=== PATIENT | female | born 1960 | race Caucasian/White ===

== ENCOUNTER → 2019-12-25 10:15 | Outpatient (CLI) | payer OTHER, SELFPAY ==
--- NOTE | ~2019-12-25 | MM_ITS ---
EXAMINATION: MM screening [facility] BI w kenneth HISTORY: Screening mammogram TECHNIQUE: Craniocaudal and mediolateral oblique 3-D tomosynthesis images were obtained and synthetic 2-D images were generated. CAD analysis was submitted and interpreted. COMPARISON: 09/08/2018, 05/10/2017, 02/23/2016 BREAST PARENCHYMAL COMPOSITION: The breasts are almost entirely fatty. FINDINGS: Scattered benign-appearing calcifications are present. There is no evidence of suspicious m ass, calcification, or architectural distortion to suggest malignancy in either breast. There has bee n no suspicious interval change. IMPRESSION: 1. No mammographic evidence of malignancy. 2. Recommend routine screening mammography in one year. BI-RADS Category 2: Benign finding(s). Reviewed, dictated and finalized at location A.
--- NOTE | ~2019-12-25 | DEXA_ITS ---
Bone Density Report Name: Clara Canales Age: 59 Sex: Female Ethnicity: White Date of : 1960 Indication: osteopenia; height loss; inflammatory bowel disease; hysterectomy; postmenopausal Referring Provider: Brayden Murdock Study: Bone densitometry was performed. Exam Date: December 25, 2019 Accession number: [id number] Bone Density: Region BMD T-score Z-score Classification AP Spine (L1-L4) 0.923 -1.1 0.4 Osteopenia Femoral Neck (Left) 0.729 -1.1 0.3 Osteopenia Total Hip (Left) 0.983 0.3 1.4 Normal Femoral Neck (Right) 0.738 -1.0 0.4 Normal Total Hip (Right) 1.019 0.6 1.7 Normal Total Hip Mean 1.001 0.5 1.6 Normal World Health Organization criteria for BMD impression classify patients as: Normal (T-score at or above -1.0), Osteopenia (T-score between -1.0 and -2.5), or Osteoporosis (T-score at or below -2.5). 10-year Fracture Risk(1): Major Osteoporotic Fracture 7.5% Hip Fracture 0.5% Reported Risk Factors: [place] (), Neck BMD=0.729, BMI=28.3 (1) FRAX(R) Version 3.08. Fracture probability calculated for an untreated patient. Fracture probability may be lower if the patient has received treatment. Previous Exams: Region Exam Age BMD T-score BMD Change BMD Change Date g/cm2 vs Baseline vs Previous AP Spine(L1-L4) 12/25/2019 59 0.923 -1.1 -0.073* 0.019 02/04/2014 53 0.904 -1.3 -0.092* -0.009 08/07/2010 50 0.913 -1.2 -0.083* -0.083* 04/10/2008 48 0.996 -0.5 Total Hip(Left) 12/25/2019 59 0.983 0.3 -0.041* 0.008 02/04/2014 53 0.975 0.3 -0.049* -0.001 08/07/2010 50 0.977 0.3 -0.048* -0.048* 04/10/2008 48 1.025 0.7 Total Hip(Right) 12/25/2019 59 1.019 0.6 -0.044* 0.035* 02/04/2014 53 0.985 0.4 -0.078* -0.004 08/07/2010 50 0.989 0.4 -0.074* -0.074* 04/10/2008 48 1.063 1.0 *Denotes significance at 95% confidence level, LSC for AP Spine = 0.022 g/cm2, LSC for Total Hip = 0.027 g/cm2 Clinical Information Provided by Patient: Has used the following medications: Vitamin D, Calcium Has the following medical conditions: Inflammatory bowel diseases, Hysterectomy Patient maximum height was 62 Menopause Age: 42 No regular weight bearing exercise Drinks caffeinated beverages Onset of menses at age 10 Number of children 1
== END ==
PROVIDERS: PCP Family Medicine; Visit Provider Physician Assistant
DX: Z12.31 Encounter for screening mammogram for malignant neoplasm of breast (principal); Z78.0 Asymptomatic menopausal state; M85.88 Other specified disorders of bone density and structure, other site; M85.852 Other specified disorders of bone density and structure, left thigh
CPT/HCPCS: 77063; 77067; 77080

== ENCOUNTER 2020-06-11 08:14 | Outpatient (CLI) | payer OTHER, SELFPAY | END 2020-06-11 08:15 | disposition home or self-care (01) | LOC: ANHCOVIDVC 08:14 | PROVIDERS: PCP Family Medicine | DX: Z23 Encounter for immunization (principal) | CPT/HCPCS: 0001A; 91300 ==

== ENCOUNTER → 2020-06-24 12:44 | Outpatient (CLI) | payer OTHER, SELFPAY ==
--- NOTE | ~2020-06-24 | CT_ITS ---
EXAMINATION: CT abdomen pelvis wo/w con DATE: 06/24/2020 13:39 INDICATION: Hematuria TECHNIQUE: Computed tomography (CT) of the abdomen and pelvis was performed without and with 130 cc O mnipaque 350 intravenous contrast. The dose-length product was 1444.94 mGy-cm. Automated exposure con trol and iterative reconstruction technique were employed. COMPARISON: CT dated 03/09/2018. FINDINGS: Lung bases are unremarkable. No significant pleural or pericardial effusion. Heart size nor mal. Status post cholecystectomy. No renal stone or hydronephrosis. 10 mm hyperdense mass in the vagi nal cuff on the right unchanged, likely proteinaceous cyst. No significant vascular abnormality. No lymphadenopathy. Ureters are normal in course and caliber. Fatty infiltration of the liver. The spleen, pancreas, adrenal glands and kidneys are unremarkable. N o findings to account for hematuria. Bladder is unremarkable. No abnormal pelvic masses or fluid rosa ections. Nonobstructive bowel gas pattern. Stable bone islands in the left femoral head. IMPRESSION: 1. No acute abdominal abnormality. No findings to account for patient's hematuria. Reviewed, dictated and finalized at location B. IMPRESSION: 1. No acute abdominal abnormality. No findings to account for patient's hematur ia.
[2020-06-24 13:11] LABS: Estimated Glomerular Filt Rate > 60
== END ==
PROVIDERS: PCP Family Medicine; Visit Provider Physician Assistant
DX: R31.9 Hematuria, unspecified (principal)
CPT/HCPCS: 74178; Q9967

== ENCOUNTER 2020-07-02 08:15 | Outpatient (CLI) | payer OTHER, SELFPAY | END 2020-07-02 08:16 | disposition home or self-care (01) | LOC: ANHCOVIDVC 08:15 | PROVIDERS: PCP Family Medicine | DX: Z23 Encounter for immunization (principal) | CPT/HCPCS: 0002A; 91300 ==

== ENCOUNTER → 2021-05-25 11:19 | Outpatient (CLI) | payer OTHER, SELFPAY ==
--- NOTE | ~2021-05-25 | MM_ITS ---
EXAMINATION: MM screening [facility] BI w kenneth HISTORY: Screening mammogram TECHNIQUE: Craniocaudal and mediolateral oblique 3-D tomosynthesis images were obtained and synthetic 2-D images were generated. CAD analysis was submitted and interpreted. COMPARISON: 12/25/2019, 09/08/2018, 05/10/2017 BREAST PARENCHYMAL COMPOSITION: The breasts are almost entirely fatty. FINDINGS: There is no evidence of suspicious mass, calcification, or architectural distortion to sugg est malignancy in either breast. There has been no suspicious interval change. IMPRESSION: 1. No mammographic evidence of malignancy. 2. Recommend routine screening mammography in one year. BI-RADS Category 1: Negative Reviewed, dictated and finalized at location A. OSIVES HANDLER
== END ==
PROVIDERS: PCP Family Medicine; Visit Provider Family Medicine
DX: Z12.31 Encounter for screening mammogram for malignant neoplasm of breast (principal)
CPT/HCPCS: 77063; 77067

== ENCOUNTER 2021-09-04 08:48 | Outpatient (CLI) | payer OTHER, SELFPAY ==
--- NOTE | ~2021-09-04 | US_ITS ---
US abdomen limited INDICATION: Right upper quadrant pain PROCEDURE: Realtime right upper abdominal ultrasound. COMPARISON: No prior studies for comparison. FINDINGS: The pancreas is normal without focal mass or pancreatic ductal dilation. Liver echotexture is normal without focal mass or intrahepatic biliary dilatation. There is normal directional flow i n the portal vein. Gallbladder is surgically absent. Common bile duct measures 6.7 mm. No sonographic Beltran's sign. IMPRESSION: 1: Unremarkable limited abdominal ultrasound postcholecystectomy. Reviewed, dictated and finalized at location B.
== END 2021-09-04 08:49 | disposition home or self-care (01) ==
LOC: ANHIMG 08:51
PROVIDERS: PCP Family Medicine; Visit Provider Nurse Practitioner Family
DX: R10.11 Right upper quadrant pain (principal); Z90.49 Acquired absence of other specified parts of digestive tract
CPT/HCPCS: 76705

== ENCOUNTER 2021-12-26 09:30 | Emergency (ER) | payer OTHER, SELFPAY ==
--- NOTE | 2021-12-26 09:38 | ED.URI ---
HPI - URI/Sore Throat General Chief Complaint: Upper Respiratory Infection Stated Complaint: drainage, cough, sore throat Time Seen by Provider: 12/26/21 09:42 Source: patient and RN notes reviewed Mode of arrival: ambulatory Limitations: no limitations History of Present Illness HPI Narrative: 61-year-old female presents with concern for 6-day history of sinus drainage, pressure. She reports sinus pressure is worse on the left. She reports occasional cough. She reports copious postnasal drainage. She reports occasional cough. She denies fever, bodies, chills, sweats. Denies known sick contacts. Reports she takes allergy medicine daily. MD elicited complaint: rhinorrhea and nasal congestion Related Data Home Medications Medication Instructions Recorded Confirmed aspirin 81 mg tablet,delayed 81 mg PO DAILY 05/01/19 11/19/21 release calcium carbonate 600 mg-vitamin 1 cap PO DAILY 05/01/19 11/19/21 D3 12.5 mcg (500 unit) capsule (Calcium 600 with Vitamin D3) loratadine 10 mg capsule 10 mg PO DAILY 05/01/19 11/19/21 vitamins A,C,G-kewx-suagzh 14,320 1 cap PO DAILY 05/01/19 11/19/21 unit-226 mg-200 unit capsule (PreserVision AREDS) cholecalciferol (vitamin D3) 50 50 mcg PO DAILY 07/02/20 11/19/21 mcg (2,000 unit) capsule cyclosporine 0.05 % eye drops in a 1 drp EACH EYE Q12H 07/02/20 11/19/21 dropperette (Restasis) gabapentin 100 mg capsule 100 mg PO TID 11/19/21 11/19/21 Allergies Allergy/AdvReac Type Severity Reaction Status Date / Time codeine Allergy Unknown Nausea Verified 11/19/21 08:36 morphine Allergy Unknown Nausea Verified 11/19/21 08:36 Review of Systems Review of Systems: CONSTITUTIONAL: Denies malaise, chills, sweats, or fever. EYES: Denies visual changes, redness, or discharge. ENT: Reports rhinorrhea, congestion. Denies sinus pain, otalgia and sore throat. CARDIOVASCULAR: Denies chest pain, palpitations, or edema. RESPIRATORY: Reports occasional cough. Denies dyspnea. GASTROINTESTINAL: Denies abdominal pain, nausea, vomiting, diarrhea SKIN: Denies rash or itching. MUSCULOSKELETAL: Denies myalgia. NEUROLOGIC: Denies headache. All systems reviewed & are unremarkable except as noted in HPI and below PMFSH Past Medical History Medical History (Updated 12/26/21 @ 09:53 by Magy Delgado NP) Carpal tunnel syndrome of left wrist Carpal tunnel syndrome, right upper limb Cholecystectomy planned (~2004) Right upper quadrant pain Surgical History Surgical History H/O cervical discectomy (~2000) H/O endoscopy (~2004) H/O hysterectomy with oophorectomy H/O tubal ligation (~1991) History of tonsillectomy (~1962) Family History Family History Father Hypertension Family history of kidney disease Family history of coronary artery disease Family history of congestive heart failure Mother Hypertension Family history of osteoarthritis Cerebrovascular accident Family history of atrial fibrillation Family history of congestive heart failure Social History Social History Smoking status: Never smoker Alcohol intake: current Comments At time of signature, agree with nursing past medical, surgical, social and family history. There is no relevant family history pertinent to the presenting complaint Exam Narrative: GENERAL: Well-appearing, well-nourished, and in no acute distress. HEAD: Normocephalic EYES: PERRLA, conjunctivae clear ENT: Nares clear, turbinates edematous and erythematous, clear discharge. Mucous membranes moist. TM pearly shore with sharp light reflex bilaterally; no tragal tenderness. Oropharynx not erythematous without lesions. Tonsils not enlarged and without exudate, no drooling, no hoarseness, no trismus, uvula midline. NECK: Supple. No lymphadenopathy CHEST: Clear to auscultation, breath sounds equal.
[2021-12-26 09:39] VITALS: BP 146/83; PULSE 116; RESP 16; TEMP 36.6; O2SAT 100
== END 2021-12-26 09:58 | disposition home or self-care (01) ==
PROVIDERS: Emergency Provider Nurse Practitioner; PCP Family Medicine
DX: J32.9 Chronic sinusitis, unspecified (principal)
CPT/HCPCS: 99213; G0463

== ENCOUNTER 2022-04-19 08:51 | Inpatient (IN) | payer OTHER, SELFPAY ==
[2022-04-19] VITALS (31 sets, daily range): BP systolic 123–153; BP diastolic 66–95; PULSE 86–107; RESP 12–20; TEMP 36.9; O2SAT 94–100
--- NOTE | ~2022-04-19 | XR_ITS ---
EXAMINATION: XR chest 1V portable DATE: 04/19/2022 09:28 INDICATION: Left upper quadrant abdominal pain. TECHNIQUE: A single frontal view of the chest was obtained. COMPARISON: CT abdomen and pelvis 06/24/2020 FINDINGS: Again seen is elevation of right hemidiaphragm. No pneumonia, pleural effusion, or pneumoth orax. The heart size is normal. There are changes of anterior and posterior fusion procedures in cerv ical spine. Surgical clips in the right upper quadrant are likely from cholecystectomy. IMPRESSION: 1. Chronic elevation of right hemidiaphragm. Reviewed, dictated and finalized at location A. KEEPER RECEPTIONIST
--- NOTE | ~2022-04-19 | XR_ITS ---
EXAMINATION: XR small bowel follow through DATE: 04/20/2022 15:01 INDICATION: Small bowel obstruction. TECHNIQUE: Oral contrast was administered, and a time course of radiographs of the abdomen was obtain ed. Fluoroscopy of the small bowel was not performed. Fluoroscopy exposure time was 0 minutes. The to kashif number of images was 3. COMPARISON: CT abdomen and pelvis 04/19/2022 FINDINGS: The nasogastric tube tip is in the stomach. There is a dilated loop of distal small bowel. Transit ti me from the stomach to proximal colon was approximately 30 minutes. Surgical clips in the right upper quadrant are likely from cholecystectomy. IMPRESSION: 1. Dilated loop of distal small bowel with prompt passage of contrast to the colon, consistent with l ow-grade partial small bowel obstruction. Reviewed, dictated and finalized at location A. FITTER IMPRESSION: 1. Dilated loop of distal small bowel with prompt passage of contrast to the co erika, consistent with low-grade partial small bowel obstruction.
--- NOTE | ~2022-04-19 | XR_ITS ---
Upright view of the abdomen Clinical history: NG tube placement Findings: Bowel gas pattern is nonspecific. NG tube in satisfactory position. No evidence for obstruc tion or free air. No abnormal mass lesion or calcification is seen. Osseous structures are intact. Impression: NG tube in satisfactory position. Reviewed, dictated and finalized at [facility]. IVING MANAGER Impression: NG tube in satisfactory position.
--- NOTE | ~2022-04-19 | CT_ITS ---
EXAMINATION: CT abdomen pelvis w con DATE: 04/19/2022 10:24 INDICATION: Generalized abdominal pain. Nausea and vomiting. TECHNIQUE: Computed tomography (CT) of the abdomen and pelvis was performed with 100 mL Omnipaque 350 intravenous contrast. Automated exposure control and iterative reconstruction technique were employe d. The dose-length product was 505.84 mGy-cm. COMPARISON: CT abdomen and pelvis 06/24/2020 FINDINGS: The visualized portions of the lung bases demonstrate mild atelectasis. No pleural effusion . The heart size is normal. There are coronary artery calcifications. No pericardial effusion. The li sheila is normal. The common duct measures 10 mm, which is normal status post cholecystectomy. The pancr eas, spleen, adrenal glands, and right kidney are normal. There is a 7 mm cyst in left kidney. The ap pendix is normal. There are multiple dilated loops of small bowel with transition point in the lower abdomen. There is wall thickening of small bowel just distal to the transition point. There is mesent nawaf edema of the dilated bowel loops. There is a small volume of ascites. There are no pathologicall y enlarged lymph nodes. There are benign bone islands in left femoral head. There is severe lumbar sp ondylosis. IMPRESSION: 1. Small bowel obstruction with transition point in the lower abdomen. 2. Small volume of ascites. Reviewed, dictated and finalized at location A. R TECH
--- NOTE | 2022-04-19 09:09 | ECG_ITS ---
Measurements Intervals [place] Rate: 90 P: 48 CO: 164 QRS: 35 QRSD: 92 T: 47 QT: 366 QTc: 448 Interpretive Statements SINUS RHYTHM DELAYED PRECORDIAL R/S TRANSITION BASELINE WANDER- I, III, AVL, AVF BORDERLINE ECG NO PREVIOUS ECG AVAILABLE FOR COMPARISON Electronically Signed On 04-19-2022 11:06:41 GIS DEVELOPER by Viet Perkins D.O.
[2022-04-19] MEDS: SODIUM CHLORIDE 0.9% IV 1,000 ML 999 ML IV CONT (09:18)
[2022-04-19] MEDS: fentaNYL CITRATE INJ (*CRX) 100 MCG/2 ML VIAL 50 MCG IV PUSH (09:19)
[2022-04-19] MEDS: ONDANSETRON INJ 4 MG/2 ML VIAL IV PUSH (09:19)
--- NOTE | 2022-04-19 09:20 | ED.ABDPAIN ---
HPI - Abdominal Pain General Chief Complaint: Abdominal Pain Stated Complaint: abd pain since yesterday Time Seen by Provider: 04/19/22 08:56 Source: patient Mode of arrival: EMS Limitations: no limitations History of Present Illness HPI narrative: This 62 year old female patient with significant PMH of IBS, HTN and previous Cholecystectomy, presents to the ER via EMS with complaints of having abdominal pain since yesterday. She reports that they have intensified and are mostly epigastric and along the left side of the abdomen. Nothing makes better and nothing makes worse. The pain is a sharp pain that comes in waves. This morning she had nausea with vomiting and she has not had any diarrhea. No CP, dyspnea. She was evaluated at her PCP's office now 9 days ago and diagnosed with Gastritis. Pain scale (0-10): 8 Radiation: none Migration to: no migration Exacerbating factors: nothing Relieving factors: nothing Related Data Home Medications Medication Instructions Recorded Confirmed aspirin 81 mg tablet,delayed 81 mg PO DAILY 05/01/19 04/08/22 release calcium carbonate 600 mg-vitamin 1 cap PO DAILY 05/01/19 04/08/22 D3 12.5 mcg (500 unit) capsule (Calcium 600 with Vitamin D3) loratadine 10 mg capsule 10 mg PO DAILY 05/01/19 04/08/22 vitamins A,C,Z-xpou-zmjptp 14,320 1 cap PO DAILY 05/01/19 04/08/22 unit-226 mg-200 unit capsule (PreserVision AREDS) cholecalciferol (vitamin D3) 50 50 mcg PO DAILY 07/02/20 04/08/22 mcg (2,000 unit) capsule cyclosporine 0.05 % eye drops in a 1 drp EACH EYE Q12H 07/02/20 04/08/22 dropperette (Restasis) gabapentin 100 mg capsule 100 mg PO TID 11/19/21 04/08/22 Allergies Allergy/AdvReac Type Severity Reaction Status Date / Time codeine AdvReac Unknown Nausea Verified 04/19/22 09:10 morphine AdvReac Unknown Nausea Verified 04/19/22 09:10 Review of Systems Review of Systems: All systems reviewed & are unremarkable except as noted in HPI and below PMFSH Past Medical History Medical History Carpal tunnel syndrome of left wrist Carpal tunnel syndrome, right upper limb Cholecystectomy planned (~2004) Onychomycosis Other cervical disc degeneration, unspecified cervical region Right upper quadrant pain Seborrheic keratosis Surgical History Surgical History H/O cervical discectomy (~2000) H/O endoscopy (~2004) H/O hysterectomy with oophorectomy H/O tubal ligation (~1991) History of tonsillectomy (~1962) Family History Family History Father Hypertension Family history of kidney disease Family history of coronary artery disease Family history of congestive heart failure Mother Hypertension Family history of osteoarthritis Cerebrovascular accident Family history of atrial fibrillation Family history of congestive heart failure Social History Social History Smoking status: Never smoker Alcohol intake: current Exam Const: General: ill appearing acutely (elderly female patient.) Nutritional Appearance: well nourished Orientation/consciousness: patient oriented x3 Limitations: no limitations HENMT: Head: normal to inspection Mouth: Yes Normal oral and palatal mucosa present Throat: posterior oropharynx normal Eyes: Conjunctivae: conjunctivae normal Neck: Neck: normal visual inspection and no lymphadenopathy Chest: Chest palpation & inspection: normal inspection of the chest and no tenderness Resp: Effort & Inspection: normal respiratory effort Auscultation: clear to auscultation bilaterally Cardio: Rate: regular rate Rhythm: regular rhythm Heart sounds: no murmurs GI: Inspection: non-distended GI Palp: Yes Soft to palpation, Yes Tenderness to palpation present (GI) (diffuse, worse in epigastric, LLQ and LUQ r
[2022-04-19 10:02] LABS: Basophils Absolute Auto 0.1 K/mm3 (0.0-0.1); Basophils Percent Auto 0.4 % (0.2-1.2); Eosinophils Absolute Auto 0.1 K/mm3 (0-0.3); Eosinophils Percent Auto 0.3 % (0-4.4); Hemoglobin 11.9 g/dL (12.0-15.0); Immature Granulocyte Percent A 0.5 % (0-0.5); Lymphocytes Absolute Auto 1.57 K/mm3 (0.9-3.2); Lymphocytes Percent Auto 7.7 % (18.3-44.2); Mean Corpuscular HGB Conc 33.1 g/dl (32-36); Mean Corpuscular Hemoglobin 30.1 pg (26-34); Mean Corpuscular Volume 90.9 fl (80-100); Mean Platelet Volume 8.5 fl (7.4-10.4); Monocytes Absolute Auto 1.1 K/mm3 (0.1-0.6); Monocytes Percent Auto 5.3 % (2.6-8.5); Neutrophils Absolute Auto 17.4 K/mm3 (1.3-6.7); Neutrophils Percent Auto 85.8 % (45.5-73.1); Platelet Count Result 445 k/mm3 (150-375); Red Blood Count 3.96 M/mm3 (4.2-5.4); Red Cell Distribution Width 14.7 % (11.5-14.5); White Blood Count 20.3 K/mm3 (4.5-10.0)
[2022-04-19 10:12] LABS: Alanine Aminotransferase 22 U/L (6-35); Albumin Level 2.7 g/dL (3.5-5.1); Alkaline Phosphatase 60 U/L (38-126); Anion Gap 2 mmol/L (8-16); Aspartate Amino Transferase 18 U/L (14-36); Bilirubin,Total 0.3 mg/dL (0.2-1.3); Blood Urea Nitrogen 19 mg/dL (7-17); Calcium 7.4 mg/dL (8.4-10.2); Carbon Dioxide 28 mmol/L (22-30); Chloride 105 mmol/L (98-107); Estimated Glomerular Filt Rate > 60; Glucose 119 mg/dL (65-110); Lipase 164 U/L (23-300); Potassium 3.7 mmol/L (3.4-5.0); Sodium 135 mmol/L (137-145)
[2022-04-19] MEDS: PIPERACILLIN/TAZOBACTAM SOD 4.5 GM in SODIUM CHLORIDE 0.9% IV 100 ML 200 ML IVPB (11:55)
[2022-04-19 12:14] LABS: Lactic Acid Reflex 1.4 mmol/L (0.7-2.0)
[2022-04-19 12:23] LABS: Influenza A QL RT-PCR Negative (Negative); Influenza B QL RT-PCR Negative (Negative); RSV RNA, RT-PCR Negative (Negative); SARS-CoV-2 RNA PCR Negative
[2022-04-19 12:31] LABS: Appearance Urine Clear (Clear); Bilirubin Urine Negative (Negative); Blood Urine Negative (Negative); Color Urine Yellow (Yellow); Glucose Urine UA Negative (Negative); Ketones Urine Negative (Negative); Leukocyte Esterase Ur Negative LEU/UL (Negative); Nitrate Urine Negative (Negative); Protein Urine Negative (Negative); Specific Grav Ur 1.015 (1.001-1.035); Urobilinogen Urine 0.2 mg/dL (<2.0)
[2022-04-19 12:32] LABS: Add Urine Microscopic? NO
[2022-04-19] MEDS: metroNIDAZOLE 500 MG/ISO 100ML 500 MG/100 ML BAG 100 MG IVPB (12:32)
--- NOTE | 2022-04-19 12:46 | PM.CNGS ---
Assessment and Plan Assessment and plan (1) Small bowel obstruction: Code(s): K56.609 - Unspecified intestinal obstruction, unspecified as to partial versus complete obstruction Status: Acute Assessment and Plan: exam largely benign, some bowel sounds, will place NG, bowel rest, likely SBS in am (2) Sepsis: Code(s): A41.9 - Sepsis, unspecified organism Status: Acute Assessment and Plan: likely secondary to above, broad spectrum abx for now History of Present Illness Consult details Consult date: 04/19/22 Reason for consult: abdominal pain Requesting physician: Nino Ruiz MD Narrative: The patient is a 62 year old female presenting to the emergency department complaining of severe, crampy abdominal pain. Patient reports the pain started yesterday and has progressively worsened since that time. Patient reports that the pain is crampy and comes in waves. She reports that it is diffuse in nature, however seems worse on the left. The patient reports associated nausea and vomiting. The patient reports normal bowel movement yesterday. The patient reports that she is having flatus over though less than usual. The patient reports that she feels more distended and bloated than usual. The patient denies any previous similar episodes. 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 Review of Systems Constitutional: Constitutional: Reports as per HPI, Reports anorexia, Denies chills, Reports fatigue, Denies fever(s), Reports lethargy, Reports malaise, Reports poor appetite, Reports weakness, Denies weight gain and Denies weight loss Eyes: Eyes: Reports no additional eye complaints ENT: Reports system reviewed and no additional complaints, except as documented Cardiovascular: Cardiovascular: Reports no additional cardiovascular complaints Respiratory: Respiratory: Reports no additional respiratory complaints Gastrointestinal: Gastrointestinal: Reports as per HPI, Reports abdominal pain, Reports belching, Reports bloating, Reports change in bowel habits, Reports GI cramping, Reports early satiety, Reports heartburn, Reports nausea, Reports vomiting and Denies hematemesis Genitourinary: Genitourinary: Reports no additional female genitourinary complaints Musculoskeletal: Musculoskeletal: Reports no additional musculoskeletal complaints Integumentary/Breasts: Skin/Breast: Reports system reviewed and no additional complaints, except as docu Neurologic: Reports system reviewed and no additional complaints, except as documented Psychiatric: Psychiatric: Reports no additional psychiatric complaints Endocrine: Endocrine: Reports no additional endocrine complaints Hematologic/Lymphatic: Hematologic/Lymphatic: Reports no additional hematologic/lymphatic complaints Allergic/Immunologic: Allergic/Immunologic: Reports no additional allergic/immunologic complaints PMFSH Past Medical History Medical History Carpal tunnel syndrome of left wrist Carpal tunnel syndrome, right upper limb Cholecystectomy planned (~2004) Onychomycosis Other cervical disc degeneration, unspecified cervical region Right upper quadrant pain Seborrheic keratosis Surgical History Surgical History H/O cervical discectomy (~2000) H/O endoscopy (~2004) H/O hysterectomy with oophorectomy H/O tubal ligation (~1991) History of tonsillectomy (~1962) Family History Family History Father Hypertension Family history of kidney disease Family history of coronary artery disease Family history of congestive heart failure Mother Hypertension Family history of osteoarthritis Cerebrovascular accident Family history of atrial fibrillation Family history of congestive heart failure Social History Social History (Rev
[2022-04-19] MEDS: DEXTROSE 5%/0.9% SOD CHL 1,000 ML 100 ML IV CONT (14:30)
--- NOTE | 2022-04-19 14:30 | PM.IMHP ---
H&P: HPI History of Present Illness Date/Time: 04/19/22 14:30 Chief Complaint: Abdominal pain, nausea, vomiting. Narrative: This is a very pleasant 62-year-old female with history of irritable bowel syndrome with diarrhea, hypertension, chronic back pain, and peripheral neuropathy who presented to the emergency department via EMS for evaluation of abdominal pain, nausea, and vomiting. Patient provides the following history. She reports epigastric discomfort for several weeks which seemed to start after eating a pork chop. She apparently vomited thereafter but has continued to have burning epigastric discomfort with some bloating and belching. She was seen by Dr. Nadege Barksdale given in the office on 04/08/2022 at which time she was diagnosed with suspected gastritis and she was started on a trial Carafate for 2 weeks which seemed to have helped somewhat. Sometime yesterday however her pain intensified and she describes a sharp and shooting pain in the epigastric region radiating to the left side of the abdomen. It seems to come and go in waves of intensity but it never fully resolved. In the evening the pain seemed to subside enough for her to eat a Big Mac however shortly thereafter it once again returned and she has had several episodes of nausea and vomiting since that time. Emesis contains previously ingested food and yellow bile. She denies fever but endorses sweats. She had a normal bowel movement yesterday morning, none since that time. She denies hematemesis, melena, and hematochezia. No chest pain or shortness of breath. Vital signs on arrival to the ED were stable and she has been afebrile. Pertinent labs include a white blood cell count of 20.3, sodium 135, BUN 19, creatinine 0.50, lactic acid 1.4, lipase 164. CT of the abdomen/pelvis showed a small-bowel obstruction with transition point in the lower abdomen as well as a small volume of ascites. NG tube has since been inserted and that has yielded nearly 200 cc of opaque yellowish fluid at the time my evaluation. She is feeling a bit better with decompression. Pain has improved with fentanyl and given in the ED. Review of Systems Review of Systems: Twelve systems were reviewed. No fever though she has had some sweats. No recent cold or flu symptoms. No chest pain or shortness of breath. She has occasional, intermittent fluttering. She has previously worn an event monitor though that was years ago. She has not had any recent, longstanding issues. No history of peptic ulcers. She rarely gets heartburn. Weight has remained stable. No known history of malignancy. Colonoscopy in 2018 showed internal hemorrhoids. No dysuria. Except as documented, all other systems were reviewed and are negative. [facility] Past Medical History Medical History (Updated 04/19/22 @ 19:09 by Thais Vivar PA-C) Chronic back pain Sees pain management. Fatty liver Hypertension Irritable bowel syndrome with diarrhea Mixed hyperlipidemia Osteopenia Seborrheic keratosis Surgical History Surgical History (Updated 04/19/22 @ 18:57 by Thais Vivar PA-C) History of cervical spinal surgery (2000) History of endoscopic retrograde cholangiopancreatography (2004) History of eye surgery History of hysterectomy with oophorectomy History of laparoscopic cholecystectomy (2004) History of tonsillectomy (1962) History of tubal ligation (1991) Family History Family History Father Hypertension Family history of kidney disease Family history of coronary artery disease Family history of congestive heart failure Mother Hypertension Family history of osteoarthritis Cerebrovascular accident Family history of atrial fibrillation Family history of congestive heart failure Social History Social History (Updated 04/19/22 @ 18:58 by Thais Vivar PA-C) Social History: Surrogate medical decision maker: Ricardo Canales, son. Code status: Full
--- NOTE | 2022-04-19 19:28 | ADMGEN ---
This patient, Clara Canales, was admitted to Medical Room 341-01. Patient/family oriented to hospital policies and general routines including ID bracelet, bed and alarms, visiting hours, pain management, procedures, bathroom and other care routines, personal items, smoking policy, room service/diet, and visiting hours. Information on how to activate the Rapid Response Team has been discussed. Patient/Family are encouraged to report perceived risks to care and to ask questions if they do not understand what they are told or what they should do.
[2022-04-19] MEDS: fentaNYL CITRATE INJ (*CRX) 100 MCG/2 ML VIAL 25 MCG IV PUSH (19:56)
[2022-04-20] VITALS: BP 144/76; PULSE 100; RESP 16; TEMP 36.6; O2SAT 100
[2022-04-20] MEDS: DEXTROSE 5%/0.9% SOD CHL 1,000 ML 100 ML IV CONT ×2 (00:05→11:37)
[2022-04-20] MEDS: ONDANSETRON INJ 4 MG/2 ML VIAL IV PUSH ×4 (00:06→23:19)
[2022-04-20] MEDS: PHENOL/SOD PHENO SPRAY CHERRY (*BKC) 1 SPRAY MUCOUS MEM (01:22)
[2022-04-20 05:59] LABS: Hematocrit 34.1 % (37.0-47.0); Hemoglobin 11.1 g/dL (12.0-15.0); Mean Corpuscular HGB Conc 32.6 g/dl (32-36); Mean Corpuscular Hemoglobin 29.4 pg (26-34); Mean Corpuscular Volume 90.5 fl (80-100); Mean Platelet Volume 8.8 fl (7.4-10.4); Platelet Count Result 447 k/mm3 (150-375); Red Blood Count 3.77 M/mm3 (4.2-5.4); Red Cell Distribution Width 15.1 % (11.5-14.5); White Blood Count 13.3 K/mm3 (4.5-10.0)
[2022-04-20 06:11] LABS: Anion Gap 0 mmol/L (8-16); Blood Urea Nitrogen 11 mg/dL (7-17); Calcium 7.2 mg/dL (8.4-10.2); Carbon Dioxide 30 mmol/L (22-30); Chloride 106 mmol/L (98-107); Estimated Glomerular Filt Rate > 60; Glucose 125 mg/dL (65-110); Magnesium 1.9 mg/dL (1.6-2.3); Potassium 3.4 mmol/L (3.4-5.0); Sodium 136 mmol/L (137-145)
--- NOTE | 2022-04-20 09:16 | PM.IMPN ---
Progress Note: A&P Assessment and Plan (1) Small bowel obstruction: Code(s): K56.609 - Unspecified intestinal obstruction, unspecified as to partial versus complete obstruction Status: Acute Assessment and Plan: The patient presented to the emergency department for evaluation of abdominal pain, nausea, and vomiting. CT scan shows evidence of small-bowel obstruction with transition point in the lower abdomen. 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 Suspect this is related to a stress response. 04/20/22 wbc trending down (3) Hypertension: Code(s): I10 - Essential (primary) hypertension Status: Acute Assessment and Plan: continue home medications monitor Time Spent With Patient Time: Greater than 35 minute spent during encounter Subjective Date/time seen: 04/20/22 09:16 Interval history: 62-year-old female with history of multiple abdominal surgeries presented to the ED with CT findings consistent of small-bowel obstruction. NG tube placed. GI consulted and following patient. Patient having mild abdominal pain and mild nausea but does not complain of vomiting. Abdominal pain much improved since admission. Patient denies fever, dizziness, headache, shortness of breath, chest pain and urinary symptoms. Patient is passing gas. Review of Systems Review of Systems: All systems reviewed & are unremarkable except as noted in HPI and below Exam Narrative: GENERAL: Comfortable, no acute distress HENMT: Dry mucous membranes,, NG tube patent and suctioning dark brown fluid, EYES: EOM intact b/l NECK: no lymphadenopathy RESPIRATORY: clear to auscultation CARDIO: RRR GI: soft, mildly tender, bowel sounds present SKIN: no rashes EXTREMITIES: no edema, redness or tenderness Objective Data Vital Signs Vital Signs: Vital Signs - 24 hr 04/19/22 09:31 04/19/22 09:46 04/19/22 10:01 Temperature Pulse Rate 86 87 89 Respiratory Rate 12 18 15 Blood Pressure 146/66 H 149/67 H 152/68 H Pulse Oximetry 100 100 94 Oxygen Delivery 04/19/22 11:59 04/19/22 12:00 04/19/22 12:16 Temperature Pulse Rate 95 95 101 H Respiratory Rate 12 13 14 Blood Pressure 146/81 H 151/79 H 145/72 H Pulse Oximetry 100 97 98 Oxygen Delivery 04/19/22 12:31 04/19/22 12:46 04/19/22 13:01 Temperature Pulse Rate 98 93 89 Respiratory Rate 17 13 12 Blood Pressure 149/77 H 140/69 131/68 Pulse Oximetry 98 99 97 Oxygen Delivery 04/19/22 13:16 04/19/22 13:46 04/19/22 14:00 Temperature Pulse Rate 104 H 91 93 Respiratory Rate 17 14 16 Blood Pressure 137/68 131/67 127/72 Pulse Oximetry 100 97 97 Oxygen Delivery 04/19/22 14:15 04/19/22 14:30 04/19/22 14:45 Temperature Pulse Rate 88 99 94 Respiratory Rate 12 13 17 Blood Pressure 126/67 127/71 136/71 Pulse Oximetry 98 98 98 Oxygen Delivery 04/19/22 15:01 04/19/22 15:15 04/19/22 15:31 Temperature Pulse Rate 106 H 100 105 H Respiratory Rate 17 16 15 Blood Pressure 129/76 140/73 146/73 H Pulse Oximetry 98 98 100 Oxygen Delivery 04/19/22 15:46 04/19/22 16:00 04/19/22 16:15 Temperature Pulse Rate 98 99 101 H Respiratory Rate 14 13 13 Blood Pressure 147/74 H 138/74 133/95 H Pulse Oximetry 97 98 98 Oxygen Delivery 04/19/22 16:30 04/19/22 16:45 04/19/22 19:03 Temperature Pulse Rate 100 99 102 H Respiratory R
[2022-04-20] MEDS: cycloSPORINE 0.4 ML OPHTH SOLUTION 1 DROP EACH EYE ×2 (11:38→20:56)
[2022-04-20] MEDS: IPRATROPIUM NASAL SPRAY 0.03% 15 ML BOTTLE 1 SPRAY NASAL (11:38)
--- NOTE | 2022-04-20 13:58 | PM.PNGS ---
Progress Note: A&P Assessment and Plan (1) Small bowel obstruction: Code(s): K56.609 - Unspecified intestinal obstruction, unspecified as to partial versus complete obstruction Status: Acute Assessment and Plan: exam improved, will get SBS for further eval, cont NG/bowel rest for now Subjective Subjective Date/Time Seen: 04/20/22 13:58 feels ok, abd pain largely resolved, +flatus Review of Systems Review of Systems: All systems reviewed & are unremarkable except as noted in HPI and below Exam Const: General: cooperative, comfortable and no acute distress Resp: Auscultation: clear to auscultation bilaterally Cardio: Rate: regular rate Rhythm: regular rhythm GI: Inspection: normal to inspection and non-distended GI Palp: No abdominal tenderness, Yes Soft to palpation, No Tenderness to palpation present (GI), No Guarding due to palpation present (GI) and No Rigid due to palpation Objective Data Vital Signs Vital Signs: Vital Signs - 24 hr 04/19/22 14:00 04/19/22 14:15 04/19/22 14:30 Temperature Pulse Rate 93 88 99 Respiratory Rate 16 12 13 Blood Pressure 127/72 126/67 127/71 Pulse Oximetry 97 98 98 Oxygen Delivery 04/19/22 14:45 04/19/22 15:01 04/19/22 15:15 Temperature Pulse Rate 94 106 H 100 Respiratory Rate 17 17 16 Blood Pressure 136/71 129/76 140/73 Pulse Oximetry 98 98 98 Oxygen Delivery 04/19/22 15:31 04/19/22 15:46 04/19/22 16:00 Temperature Pulse Rate 105 H 98 99 Respiratory Rate 15 14 13 Blood Pressure 146/73 H 147/74 H 138/74 Pulse Oximetry 100 97 98 Oxygen Delivery 04/19/22 16:15 04/19/22 16:30 04/19/22 16:45 Temperature Pulse Rate 101 H 100 99 Respiratory Rate 13 15 13 Blood Pressure 133/95 H 143/77 H 138/79 Pulse Oximetry 98 98 98 Oxygen Delivery 04/19/22 19:03 04/19/22 17:00 04/19/22 17:16 Temperature Pulse Rate 102 H 99 107 H Respiratory Rate 18 13 12 Blood Pressure 134/79 141/74 H 139/72 Pulse Oximetry 100 100 98 Oxygen Delivery 04/19/22 19:34 04/20/22 00:00 04/19/22 20:00 Temperature 36.6 C Pulse Rate 100 100 Respiratory Rate 16 16 Blood Pressure 144/76 H Pulse Oximetry 100 100 Oxygen Delivery Room Air Room Air Intake/Output Intake/Output: Intake & Output 04/17/22 04/18/22 04/19/22 04/20/22 23:59 23:59 23:59 23:59 Intake Total 1200 2000 Output Total 100 600 Balance 1100 1400 Meds/Results Medications: Active Medications Generic Name Dose Route Start Last Admin Trade Name Freq PRN Reason Stop Dose Admin Hydrocodone Bitart/Acetaminophen 1 tab 04/20/22 13:00 04/20/22 13:28 Hydrocodone/Acetaminophen (*Crx) 5-325 Mg Tablet PO Not Given TID [place] Cyclosporine 1 drop 04/20/22 09:00 04/20/22 11:38 Cyclosporine 0.4 Ml Ophth Solution EACH EYE 1 drop Q12H [place] Administration Gabapentin 100 mg 04/20/22 09:00 04/20/22 13:28 Gabapentin 100 Mg Capsule PO Not Given TID [place] Hydrochlorothiazide 12.5 mg 04/20/22 09:00 04/20/22 12:54 Hydrochlorothiazide 12.5 Mg Capsule PO Not Given QAM [place] Dextrose/Sodium Chloride 1,000 mls @ 100 mls/hr 04/19/22 12:45 04/20/22 11:37 Dextrose 5% Sodium Chloride 0.9% IV CONT 100 mls/hr .Q10H [place] Administration Acetaminophen 1,000 mg in 100 mls @ 400 mls/hr 04/20/22 12:00 Ofirmev 1,000 Mg Ivpb IVPB 04/21/22 11:59 Q6HR [place] Acetaminophen 1,000 mg in 100 mls @ 400 mls/hr 04/21/22 12:00 Ofirmev 1,000 Mg Ivpb IVPB 04/22/22 11:59 Q6H PRN Pain or fever Ipratropium [place] 1 spray 04/20/22 09:00 04/20/22 11:38 Ipratropium Nasal [place] 0.03% 15 Ml Bottle NASAL 1 spray DAILY [place] Administration Loratadine 10 mg 04/20/22 09:00 04/20/22 12:54 Loratadine 10 Mg Tablet PO Not Given DAILY [place] Losartan Potassium 50 mg 04/20/22 09:00 04/20/22 12:54 Losartan Potassium 50 Mg Tablet PO Not Given QAM [facility] Ondansetron HCl 4 mg 04/19/22 12:45 04/20/22 07:01
[2022-04-20 14:00] VITALS: BP 149/69; PULSE 80; RESP 18; TEMP 36.6; O2SAT 97
[2022-04-20 20:00] VITALS: PULSE 80; RESP 18; O2SAT 97
[2022-04-20 23:55] VITALS: BP 152/73; PULSE 88; RESP 20; TEMP 36.6; O2SAT 100
[2022-04-21] MEDS: DEXTROSE 5%/0.9% SOD CHL 1,000 ML 100 ML IV CONT (02:37)
[2022-04-21 05:54] LABS: Basophils Absolute Auto 0.1 K/mm3 (0.0-0.1); Basophils Percent Auto 0.4 % (0.2-1.2); Eosinophils Absolute Auto 0.1 K/mm3 (0-0.3); Eosinophils Percent Auto 0.9 % (0-4.4); Hematocrit 34.2 % (37.0-47.0); Immature Granulocyte Absolute 0.05 K/mm3 (0.00-0.031); Immature Granulocyte Percent A 0.4 % (0-0.5); Lymphocytes Absolute Auto 1.35 K/mm3 (0.9-3.2); Lymphocytes Percent Auto 11.6 % (18.3-44.2); Mean Corpuscular HGB Conc 32.2 g/dl (32-36); Mean Corpuscular Volume 93.2 fl (80-100); Mean Platelet Volume 8.9 fl (7.4-10.4); Monocytes Absolute Auto 0.7 K/mm3 (0.1-0.6); Monocytes Percent Auto 6.4 % (2.6-8.5); Neutrophils Absolute Auto 9.3 K/mm3 (1.3-6.7); Neutrophils Percent Auto 80.3 % (45.5-73.1); Platelet Count Result 411 k/mm3 (150-375); Red Blood Count 3.67 M/mm3 (4.2-5.4); White Blood Count 11.6 K/mm3 (4.5-10.0)
[2022-04-21] MEDS: ONDANSETRON INJ 4 MG/2 ML VIAL IV PUSH (05:58)
[2022-04-21 06:06] LABS: Alanine Aminotransferase 19 U/L (6-35); Albumin Level 2.8 g/dL (3.5-5.1); Alkaline Phosphatase 59 U/L (38-126); Anion Gap 0 mmol/L (8-16); Aspartate Amino Transferase 19 U/L (14-36); Bilirubin,Total 0.3 mg/dL (0.2-1.3); Blood Urea Nitrogen 9 mg/dL (7-17); Calcium 7.6 mg/dL (8.4-10.2); Carbon Dioxide 32 mmol/L (22-30); Chloride 106 mmol/L (98-107); Estimated Glomerular Filt Rate > 60; Glucose 109 mg/dL (65-110); Potassium 2.9 mmol/L (3.4-5.0); Sodium 138 mmol/L (137-145)
[2022-04-21 08:00] VITALS: BP 145/71; PULSE 86; RESP 20; TEMP 36.6; O2SAT 97
[2022-04-21] MEDS: cycloSPORINE 0.4 ML OPHTH SOLUTION 1 DROP EACH EYE ×2 (09:06→20:28)
[2022-04-21] MEDS: IPRATROPIUM NASAL SPRAY 0.03% 15 ML BOTTLE 1 SPRAY NASAL (09:06)
[2022-04-21] MEDS: POTASSIUM CHLORIDE INJ 40 MEQ in SODIUM CHLORIDE 0.9% IV 500 ML 130 MEQ IVPB (10:24)
--- NOTE | 2022-04-21 11:42 | PC.NURSE ---
Dr Rodriguez notified radio news writer to clamp NG at this time and monitor pts tolerance. May advance to clears if tolerating well.
--- NOTE | 2022-04-21 13:57 | PM.PNGS ---
Progress Note: A&P Assessment and Plan (1) Small bowel obstruction: Code(s): K56.609 - Unspecified intestinal obstruction, unspecified as to partial versus complete obstruction Status: Acute Assessment and Plan: exam benign, SBS unremarkable, +bowel fxn, will clamp NG and probably out later today, start clears once NG out Subjective Subjective Date/Time Seen: 04/21/22 13:57 feels good today, +multiple bowel movements, minimal abd pain Review of Systems Review of Systems: All systems reviewed & are unremarkable except as noted in HPI and below Exam Const: General: cooperative, comfortable and no acute distress Resp: Auscultation: clear to auscultation bilaterally Cardio: Rate: regular rate Rhythm: regular rhythm GI: Inspection: normal to inspection and non-distended GI Palp: No abdominal tenderness, Yes Soft to palpation, No Tenderness to palpation present (GI), No Guarding due to palpation present (GI) and No Rigid due to palpation Objective Data Vital Signs Vital Signs: Vital Signs - 24 hr 04/20/22 14:00 04/20/22 20:00 04/20/22 23:55 Temperature 36.6 C 36.6 C Pulse Rate 80 80 88 Respiratory Rate 18 18 20 Blood Pressure 149/69 H 152/73 H Pulse Oximetry 97 97 100 Oxygen Delivery Room Air 04/21/22 08:00 Temperature 36.6 C Pulse Rate 86 Respiratory Rate 20 Blood Pressure 145/71 H Pulse Oximetry 97 Oxygen Delivery Intake/Output Intake/Output: Intake & Output 04/18/22 04/19/22 04/20/22 04/21/22 23:59 23:59 23:59 23:59 Intake Total 1200 3200 Output Total 836 179 6470 Balance 1100 2500 -1000 Meds/Results Medications: Active Medications Generic Name Dose Route Start Last Admin Trade Name Freq PRN Reason Stop Dose Admin Hydrocodone Bitart/Acetaminophen 1 tab 04/20/22 13:00 04/21/22 09:06 Hydrocodone/Acetaminophen (*Crx) 5-325 Mg Tablet PO Not Given TID [facility] Cyclosporine 1 drop 04/20/22 09:00 04/21/22 09:06 Cyclosporine 0.4 Ml Ophth Solution EACH EYE 1 drop Q12H [place] Administration Gabapentin 100 mg 04/20/22 09:00 04/21/22 09:06 Gabapentin 100 Mg Capsule PO Not Given TID [facility] Hydrochlorothiazide 12.5 mg 04/20/22 09:00 04/21/22 09:06 Hydrochlorothiazide 12.5 Mg Capsule PO Not Given QAM [place] Acetaminophen 1,000 mg in 100 mls @ 400 mls/hr 04/21/22 12:00 Ofirmev 1,000 Mg Ivpb IVPB 04/22/22 11:59 Q6H PRN Pain or fever Potassium Chloride/Dextrose/Sod Cl 1,000 mls @ 100 mls/hr 04/21/22 13:00 Kcl 20 Meq/D5/0.9% Sod Chl IV CONT .Q10H [place] Ipratropium [place] 1 spray 04/20/22 09:00 04/21/22 09:06 Ipratropium Nasal [place] 0.03% 15 Ml Bottle NASAL 1 spray DAILY [place] Administration Loratadine 10 mg 04/20/22 09:00 04/21/22 09:07 Loratadine 10 Mg Tablet PO Not Given DAILY [place] Losartan Potassium 50 mg 04/20/22 09:00 04/21/22 09:07 Losartan Potassium 50 Mg Tablet PO Not Given QAM [facility] Ondansetron HCl 4 mg 04/19/22 12:45 04/21/22 05:58 Ondansetron Inj 4 Mg/2 Ml Vial IV PUSH 4 mg Q6H PRN Administration Nausea And Vomiting Phenol 1 spray 04/20/22 00:16 04/20/22 01:22 Phenol/Sod Pheno [place] (*Bkc) MUCOUS MEM 1 spray PRN PRN Administration Sore Throat Radiology Results: ITS Impressions Chest X-Ray 04/19/22 09:30 IMPRESSION: 1. Chronic elevation of right hemidiaphragm. Abdomen/Pelvis CT 04/19/22 10:24 IMPRESSION: 1. Small bowel obstruction with transition point in the lower abdomen. 2. Small volume of ascites. Abdomen X-Ray 04/19/22 11:38 Impression: NG tube in satisfactory position. Upper GI and Small Bowel X-Ray 04/20/22 15:02 IMPRESSION: 1. Dilated loop of distal small bowel with prompt passage of contrast to the colon, consistent with low-grade partial small bowel obstruction. Labs Labs: Laboratory Results - last 24 hr 04/21/22 04/21/22 05:22 05:22 WBC 11.6 H RBC 3.67 L Hg
--- NOTE | 2022-04-21 15:08 | PM.IMPN ---
Progress Note: A&P Assessment and Plan (1) Small bowel obstruction: Code(s): K56.609 - Unspecified intestinal obstruction, unspecified as to partial versus complete obstruction Status: Acute Assessment and Plan: Surgery consulted and recs appreciated. Patient with NG clamped and unremarkable imaging from yesterday. Await further recs. Examination is without acute findings and she reports feeling comfortable. (2) Leukocytosis: Code(s): D72.829 - Elevated white blood cell count, unspecified Status: Acute Assessment and Plan: WBC count is downtrending. NO acute s/s of infection. (3) Hypertension: Code(s): I10 - Essential (primary) hypertension Status: Acute Assessment and Plan: Stable. Cont. current. Plan Expect 48 hours of further care at this time. Time Spent With Patient Time: Greater than 35 minute spent during encounter Time with patient: 25 - 35 minutes Subjective Date/time seen: 04/21/22 15:08 Interval history: Patient states she is feeling fair this am, she denies new complaint or concern. Review of Systems Constitutional: Constitutional: Reports no additional constitutional complaints Cardiovascular: Cardiovascular: Reports no additional cardiovascular complaints Respiratory: Respiratory: Reports no additional respiratory complaints Exam Narrative: GENERAL APPEARANCE: Appears to be in no acute distress. HEAD: normocephalic atraumatic EYES: PERRL, EOMI. Vision grossly intact. ENT: Hearing grossly intact, no nasal discharge NECK: Neck supple, trachea midline. CARDIAC: Normal S1/S2. Rhythm is regular. No murmurs, rubs, or gallops. No cyanosis or pallor. Extremities are warm and well perfused. LUNGS: Clear to auscultation without rales, rhonchi, wheezing or diminished breath sounds. Respirations even and unlabored. ABDOMEN: BS positive x 4 quadrants. Soft, nondistended, non tender to palpation. No guarding or rebound. MSK: No joint tenderness/swelling, fair strength in all extremities. PERIPHERAL VASCULAR: Peripheral pulses palpable. Normal perfusion, cap refill <2 seconds. No edema. NEURO: Follows commands. No focal deficits. SKIN: [place] without lesions or eruptions. PSYCH: Stable, no paranoia or delusional thinking. Objective Data Vital Signs Vital Signs: Vital Signs - 24 hr 04/20/22 20:00 04/20/22 23:55 04/21/22 08:00 Temperature 97.9 F 97.9 F Pulse Rate 80 88 86 Respiratory Rate 18 20 20 Blood Pressure 152/73 H 145/71 H Pulse Oximetry 97 100 97 Oxygen Delivery Room Air Intake/Output Intake/Output: Intake & Output 04/18/22 04/19/22 04/20/22 04/21/22 23:59 23:59 23:59 23:59 Intake Total 1200 3200 Output Total 386 989 8715 Balance 1100 2500 -1000 Meds/Results Medications: Active Medications Generic Name Dose Route Start Last Admin Trade Name Freq PRN Reason Stop Dose Admin Hydrocodone Bitart/Acetaminophen 1 tab 04/20/22 13:00 04/21/22 14:19 Hydrocodone/Acetaminophen (*Crx) 5-325 Mg Tablet PO Not Given TID [place] Cyclosporine 1 drop 04/20/22 09:00 04/21/22 09:06 Cyclosporine 0.4 Ml Ophth Solution EACH EYE 1 drop Q12H [place] Administration Gabapentin 100 mg 04/20/22 09:00 04/21/22 14:19 Gabapentin 100 Mg Capsule PO Not Given TID [place] Hydrochlorothiazide 12.5 mg 04/20/22 09:00 04/21/22 09:06 Hydrochlorothiazide 12.5 Mg Capsule PO Not Given QAM [place] Acetaminophen 1,000 mg in 100 mls @ 400 mls/hr 04/21/22 12:00 Ofirmev 1,000 Mg Ivpb IVPB 04/22/22 11:59 Q6H PRN Pain or fever Potassium Chloride/Dextrose/Sod Cl 1,000 mls @ 100 mls/hr 04/21/22 13:00 Kcl 20 Meq/D5/0.9% Sod Chl IV CONT .Q10H [place] Ipratropium [place] 1 spray 04/20/22 09:00 04/21/22 09:06 Ipratropium Nasal [place] 0.03% 15 Ml Bottle NASAL 1 spray DAILY [place] Administration Loratadine 10 mg 04/20/22 09:00 04/21/22 09:07 Loratadine 10 Mg Tablet PO Not Given [facility]
[2022-04-21 16:00] VITALS: BP 137/67; PULSE 92; RESP 18; TEMP 36.3; O2SAT 98
[2022-04-21] MEDS: GABAPENTIN 100 MG CAPSULE PO (17:20)
[2022-04-21] MEDS: KCL 20 MEQ/D5/0.9% SOD CHL 1,000 ML 100 ML IV CONT (17:21)
[2022-04-21 20:00] VITALS: PULSE 92; RESP 18; O2SAT 100
[2022-04-21 21:02] VITALS: BP 149/72; PULSE 92; RESP 18; TEMP 36.9; O2SAT 100
[2022-04-22 05:41] LABS: Hematocrit 32.8 % (37.0-47.0); Hemoglobin 10.6 g/dL (12.0-15.0); Mean Corpuscular HGB Conc 32.3 g/dl (32-36); Mean Corpuscular Hemoglobin 30.2 pg (26-34); Mean Corpuscular Volume 93.4 fl (80-100); Mean Platelet Volume 8.7 fl (7.4-10.4); Platelet Count Result 388 k/mm3 (150-375); Red Blood Count 3.51 M/mm3 (4.2-5.4); White Blood Count 11.9 K/mm3 (4.5-10.0)
[2022-04-22 05:49] VITALS: BP 145/68; PULSE 89; RESP 18; TEMP 36.4; O2SAT 97
[2022-04-22 05:54] LABS: Alanine Aminotransferase 25 U/L (6-35); Albumin Level 2.8 g/dL (3.5-5.1); Alkaline Phosphatase 64 U/L (38-126); Anion Gap 0 mmol/L (8-16); Aspartate Amino Transferase 26 U/L (14-36); Bilirubin,Total 0.3 mg/dL (0.2-1.3); Blood Urea Nitrogen 7 mg/dL (7-17); Calcium 7.7 mg/dL (8.4-10.2); Carbon Dioxide 25 mmol/L (22-30); Chloride 109 mmol/L (98-107); Estimated Glomerular Filt Rate > 60; Glucose 100 mg/dL (65-110); Potassium 3.7 mmol/L (3.4-5.0); Sodium 134 mmol/L (137-145)
[2022-04-22] MEDS: LORATADINE 10 MG TABLET PO (08:41)
[2022-04-22] MEDS: hydroCHLOROthiazide 12.5 MG CAPSULE PO (08:41)
[2022-04-22] MEDS: LOSARTAN POTASSIUM 50 MG TABLET PO (08:42)
[2022-04-22] MEDS: HYDROcodone/acetaminophen (*CRX) 5-325 MG TABLET 1 TAB PO ×3 (08:42→17:13)
[2022-04-22] MEDS: IPRATROPIUM NASAL SPRAY 0.03% 15 ML BOTTLE 1 SPRAY NASAL (08:42)
[2022-04-22] MEDS: GABAPENTIN 100 MG CAPSULE PO ×3 (08:42→17:13)
[2022-04-22] MEDS: cycloSPORINE 0.4 ML OPHTH SOLUTION 1 DROP EACH EYE (08:42)
--- NOTE | 2022-04-22 13:01 | PM.IMPN ---
Progress Note: A&P Assessment and Plan (1) Small bowel obstruction: Code(s): K56.609 - Unspecified intestinal obstruction, unspecified as to partial versus complete obstruction Status: Acute Assessment and Plan: Surgery consulted and recs appreciated. Recent imaging with question of low grade partial sbo. Now on a liquid diet and symptoms are improving. If she continues to take oral in appropriately I feel likely discharge in the next 24 hours. (2) Leukocytosis: Code(s): D72.829 - Elevated white blood cell count, unspecified Status: Acute Assessment and Plan: WBC count is stable. NO acute s/s of infection. (3) Hypertension: Code(s): I10 - Essential (primary) hypertension Status: Acute Assessment and Plan: Stable. Cont. current. (4) Hypokalemia: Code(s): E87.6 - Hypokalemia Status: Acute Assessment and Plan: K 2.9 on day prior with repletion now at 3.7. Magnesium level is normal. Plan Expect 24- 48 hours of further care at this time. Time Spent With Patient Time: Greater than 30 minutes spent during encounter Time with patient: 25 - 35 minutes Subjective Date/time seen: 04/22/22 13:01 Interval history: Mrs. Canales states she is feeling fair this morning. She denies abdominal pain at this time. Review of Systems Constitutional: Constitutional: Reports no additional constitutional complaints Cardiovascular: Cardiovascular: Reports no additional cardiovascular complaints Respiratory: Respiratory: Reports no additional respiratory complaints Musculoskeletal: Musculoskeletal: Reports no additional musculoskeletal complaints Exam Narrative: GENERAL APPEARANCE: Appears to be in no acute distress. HEAD: normocephalic atraumatic ENT: Hearing grossly intact, no nasal discharge NECK: Neck supple, trachea midline. CARDIAC: Normal S1/S2. Rhythm is regular. No murmurs, rubs, or gallops. No cyanosis or pallor. Extremities are warm and well perfused. LUNGS: Clear to auscultation without rales, rhonchi, wheezing or diminished breath sounds. Respirations even and unlabored. ABDOMEN: BS positive x 4 quadrants. Soft, nondistended, non tender to palpation. No guarding or rebound. PERIPHERAL VASCULAR: Peripheral pulses palpable. Normal perfusion, cap refill <2 seconds. No edema. NEURO: Follows commands. No focal deficits. SKIN: [place] without lesions or eruptions. PSYCH: Stable, no paranoia or delusional thinking. Objective Data Vital Signs Vital Signs: Vital Signs - 24 hr 04/21/22 16:00 04/21/22 21:02 04/21/22 20:00 Temperature 97.3 F L 98.4 F Pulse Rate 92 92 92 Respiratory Rate 18 18 18 Blood Pressure 137/67 149/72 H Pulse Oximetry 98 100 100 Oxygen Delivery Room Air 04/22/22 05:49 04/22/22 08:00 Temperature 97.6 F Pulse Rate 89 Respiratory Rate 18 Blood Pressure 145/68 H Pulse Oximetry 97 Oxygen Delivery Room Air Intake/Output Intake/Output: Intake & Output 04/19/22 04/20/22 04/21/22 04/22/22 23:59 23:59 23:59 23:59 Intake Total 1200 3200 360 760 Output Total 793 661 5214 Balance 1100 2500 -1540 760 Meds/Results Medications: Active Medications Generic Name Dose Route Start Last Admin Trade Name Freq PRN Reason Stop Dose Admin Hydrocodone Bitart/Acetaminophen 1 tab 04/20/22 13:00 04/22/22 12:14 Hydrocodone/Acetaminophen (*Crx) 5-325 Mg Tablet PO 1 tab TID [place] Administration Cyclosporine 1 drop 04/20/22 09:00 04/22/22 08:42 Cyclosporine 0.4 Ml Ophth Solution EACH EYE 1 drop Q12H [place] Administration Gabapentin 100 mg 04/20/22 09:00 04/22/22 12:14 Gabapentin 100 Mg Capsule PO 100 mg TID [place] Administration Hydrochlorothiazide 12.5 mg 04/20/22 09:00 04/22/22 08:41 Hydrochlorothiazide 12.5 Mg Capsule PO 12.5 mg QAM [place] Administration Ipratropium [place] 1 spray 04/20/22 09:00 04/22/22 08:42 Ipratropium Nasal [place] 0.03% 15 Ml Bottle NASAL
--- NOTE | 2022-04-22 13:10 | PM.PNGS ---
Progress Note: A&P Assessment and Plan (1) Small bowel obstruction: Code(s): K56.609 - Unspecified intestinal obstruction, unspecified as to partial versus complete obstruction Status: Acute Assessment and Plan: Resolved. Bowels are moving. Will advance to a solid diet. If tolerating solids, then patient is okay to be discharged from a surgical standpoint. Only follow-up as needed. Plan I have discussed the patient's case and plan of care with Dr. Rodriguez. Subjective Subjective Date/Time Seen: 04/22/22 13:10 Patient reports: no new complaints, feels better, pain is less, flatus, bowel movement and afebrile Interval history: Chart reviewed. Patient continues to improve daily. No abdominal pain today. Multiple BMs today. Tolerating full liquids. Review of Systems Review of Systems: All systems reviewed & are unremarkable except as noted in HPI and below Exam Const: General: comfortable and no acute distress Orientation/consciousness: patient oriented x3 GI: Inspection: non-distended GI Palp: Yes Soft to palpation, No Tenderness to palpation present (GI), No Guarding due to palpation present (GI) and No Rebound tenderness present Auscultation: normal bowel sounds Objective Data Vital Signs Vital Signs: Vital Signs - 24 hr 04/21/22 16:00 04/21/22 21:02 04/21/22 20:00 Temperature 97.3 F L 98.4 F Pulse Rate 92 92 92 Respiratory Rate 18 18 18 Blood Pressure 137/67 149/72 H Pulse Oximetry 98 100 100 Oxygen Delivery Room Air 04/22/22 05:49 04/22/22 08:00 Temperature 97.6 F Pulse Rate 89 Respiratory Rate 18 Blood Pressure 145/68 H Pulse Oximetry 97 Oxygen Delivery Room Air Intake/Output Intake/Output: Intake & Output 04/19/22 04/20/22 04/21/22 04/22/22 23:59 23:59 23:59 23:59 Intake Total 1200 3200 360 760 Output Total 698 053 7746 Balance 1100 2500 -1540 760 Meds/Results Medications: Active Medications Generic Name Dose Route Start Last Admin Trade Name Freq PRN Reason Stop Dose Admin Hydrocodone Bitart/Acetaminophen 1 tab 04/20/22 13:00 04/22/22 12:14 Hydrocodone/Acetaminophen (*Crx) 5-325 Mg Tablet PO 1 tab TID [place] Administration Cyclosporine 1 drop 04/20/22 09:00 04/22/22 08:42 Cyclosporine 0.4 Ml Ophth Solution EACH EYE 1 drop Q12H [place] Administration Gabapentin 100 mg 04/20/22 09:00 04/22/22 12:14 Gabapentin 100 Mg Capsule PO 100 mg TID [place] Administration Hydrochlorothiazide 12.5 mg 04/20/22 09:00 04/22/22 08:41 Hydrochlorothiazide 12.5 Mg Capsule PO 12.5 mg QAM [place] Administration Ipratropium [place] 1 spray 04/20/22 09:00 04/22/22 08:42 Ipratropium Nasal [place] 0.03% 15 Ml Bottle NASAL 1 spray DAILY [place] Administration Loratadine 10 mg 04/20/22 09:00 04/22/22 08:41 Loratadine 10 Mg Tablet PO 10 mg DAILY [place] Administration Losartan Potassium 50 mg 04/20/22 09:00 04/22/22 08:42 Losartan Potassium 50 Mg Tablet PO 50 mg QAM [place] Administration Ondansetron HCl 4 mg 04/19/22 12:45 04/21/22 05:58 Ondansetron Inj 4 Mg/2 Ml Vial IV PUSH 4 mg Q6H PRN Administration Nausea And Vomiting Phenol 1 spray 04/20/22 00:16 04/20/22 01:22 Phenol/Sod Pheno [place] (*Bkc) MUCOUS MEM 1 spray PRN PRN Administration Sore Throat Radiology Results: ITS Impressions Chest X-Ray 04/19/22 09:30 IMPRESSION: 1. Chronic elevation of right hemidiaphragm. Abdomen/Pelvis CT 04/19/22 10:24 IMPRESSION: 1. Small bowel obstruction with transition point in the lower abdomen. 2. Small volume of ascites. Abdomen X-Ray 04/19/22 11:38 Impression: NG tube in satisfactory position. Upper GI and Small Bowel X-Ray 04/20/22 15:02 IMPRESSION: 1. Dilated loop of distal small bowel with prompt passage of contrast to the colon, consistent with low-grade partial small bowel obstruction. Labs Labs: Laboratory Results - last 24 hr
[2022-04-22 14:00] VITALS: BP 151/72; PULSE 85; RESP 16; TEMP 36.3; O2SAT 100
--- NOTE | 2022-04-22 15:37 | PM.DS ---
DS: Admitting Diagnosis Discharge Date 04/22/22 Admitting Diagnosis Small bowel obstruction, sepsis DS: Discharge Diagnosis Discharge Diagnosis (1) Small bowel obstruction: Code(s): K56.609 - Unspecified intestinal obstruction, unspecified as to partial versus complete obstruction Status: Acute Assessment and Plan: Resolved. NG has been removed and patient tolerating diet. (2) Leukocytosis: Code(s): D72.829 - Elevated white blood cell count, unspecified Status: Acute Assessment and Plan: Improved. Likely 2/2 vomiting prior to presentation. Plan Discharge to home with close f/u PCP and to contact/return for care if symptoms return. DS: Summary Hospital Course Reason for hospitalization: Small bowel obstruction. Hospital Course: This is a very pleasant 62-year-old female with history of irritable bowel syndrome with diarrhea, hypertension, chronic back pain, and peripheral neuropathy who presented to the emergency department via EMS for evaluation of abdominal pain, nausea, and vomiting. She was found to have a small bowel obstruction and was subsequently admitted. She was managed conservatively with NG decompression and general surgery was consulted. Fortunately the patient had return of bowel movements and cessation of the abdominal pain, nausea, and vomiting. She has tolerated diet and has no new complaints or concerns on day of discharge. Status at Discharge Cognitive/behavioral status at discharge: Patient is at their baseline level of function on day of discharge. Overall status at discharge: patient is back to baseline Time Spent with Patient Time attestation: Total time spent providing and/or coordinating discharge services: Time spent: Greater than 30 minutes Exam Narrative: GENERAL APPEARANCE: Appears to be in no acute distress. HEAD: normocephalic atraumatic ENT: Hearing grossly intact, no nasal discharge NECK: Neck supple, trachea midline. CARDIAC: Normal S1/S2. Rhythm is regular. No murmurs, rubs, or gallops. No cyanosis or pallor. Extremities are warm and well perfused. LUNGS: Clear to auscultation without rales, rhonchi, wheezing or diminished breath sounds. Respirations even and unlabored. ABDOMEN: BS positive x 4 quadrants. Soft, nondistended, non tender to palpation. No guarding or rebound. PERIPHERAL VASCULAR: Peripheral pulses palpable. Normal perfusion, cap refill <2 seconds. No edema. NEURO: Follows commands. No focal deficits. SKIN: [place] without lesions or eruptions. PSYCH: Stable, no paranoia or delusional thinking. DS: Data Data Completed and Pending Completed studies during hospitalization: CXR, CT abdomen/Pelvis, Abdomen XR, Upper GI and Small Bowel XR Pending studies at discharge: N/a Labs on day of discharge: Reviewed. Stable H/H. Stable Electrolytes. Leukocytosis is improving. Procedures/Treatments: NG decompression. Discharge Plan Discharge Attending physician on discharge: Noemí Santiago Consulting providers: Cortney Rodriguez ; Thais Vivar ; Viet Perkins ; Irma Méndez ; Dung Saldivar V. ; Jack Quevedo ; Leana Guevara ; Antoni Fisher ; Nino Ruiz Discharging Clinician: Noemí Santiago Anticipated Discharge Date/Time: 04/22/22 17:50 Patient Disposition: Home, Self-Care Activity: as tolerated Diet: heart healthy and low fiber Discharge Instructions: patient to follow-up with her primary care provider as soon as possible, patient is instructed if any symptoms redevelop to go to nearest emergency department Patient Instructions: Antibiotic Form Stand Alone Forms: General Discharge Information Follow-up/Referrals: Cortney Rodriguez MD [Physician] - Nadege Mina MD [Primary Care Provider] - Discharge Medications: Continued gabapentin 100 mg capsule 100 mg PO TID aspirin 81 mg tablet,delayed release (DR/EC) 81 mg PO DAILY calcium carbonate-vitamin D3 [Calcium
== END 2022-04-22 18:40 | disposition home or self-care (01) | DRG 390 ==
LOC: ANHED 12:45 → ANH3MEDSUR 14:54 → ANH3MED 18:48
PROVIDERS: Internal Medicine Critical Care Medicine; Nurse Practitioner Family; Physician Assistant; Admitting Provider Family Medicine; Emergency Provider Nurse Practitioner Adult Health; PCP Family Medicine; Visit Provider Family Medicine
DX: K56.609 Unspecified intestinal obstruction, unspecified as to partial versus complete obstruction (principal); K58.9 Irritable bowel syndrome, unspecified; E87.6 Hypokalemia; I10 Essential (primary) hypertension; E78.2 Mixed hyperlipidemia; M85.80 Other specified disorders of bone density and structure, unspecified site; M50.30 Other cervical disc degeneration, unspecified cervical region; M54.9 Dorsalgia, unspecified; G89.29 Other chronic pain; G62.9 Polyneuropathy, unspecified; D72.829 Elevated white blood cell count, unspecified; Z20.822 Contact with and (suspected) exposure to COVID-19; Z90.49 Acquired absence of other specified parts of digestive tract; Z79.82 Long term (current) use of aspirin
CPT/HCPCS: 36415; 71045; 74177; 74250; 80048; 80053; 81003; 83605; 83690; 83735; 85025; 85027; 87040; 87637; 93005; 96361; 96375; 99285; A9270; J0131; J2405; J2543; J3010; J3480; J7030; J7040; J7042; Q9967

== ENCOUNTER 2022-05-04 11:17 | Outpatient (NON) | payer OTHER, SELFPAY ==
[2022-05-04 19:51] LABS: IFOB Positive Control Positive; Immunochemical Fecal Occult Bl Positive (N)
== END 2022-05-04 11:18 | disposition home or self-care (01) ==
LOC: ANHGOSHLAB 11:18
PROVIDERS: PCP Family Medicine; Visit Provider Physician Assistant
DX: D64.9 Anemia, unspecified (principal)
CPT/HCPCS: 82274

== ENCOUNTER 2022-05-07 10:10 | Outpatient (CLI) | payer OTHER, SELFPAY ==
[2022-05-07 11:43] LABS: Kit Draw Collected
== END 2022-05-07 10:11 | disposition home or self-care (01) ==
LOC: ANHGOSHLAB 10:12
PROVIDERS: PCP Family Medicine; Visit Provider Physician Assistant
DX: D64.9 Anemia, unspecified (principal); E83.51 Hypocalcemia
CPT/HCPCS: 36415

== ENCOUNTER 2022-05-18 11:42 | Day surgery (SDC) | payer OTHER, SELFPAY ==
[2022-05-11 09:03] VITALS: BMI 25.4
--- NOTE | 2022-05-17 16:03 | WPDANESEPPF ---
Anes - Initial Pre Proc Eval Procedure: Operation Date: 05/18/22 13:30 Proposed Procedures p Diagnostic Colonoscopy - Aníbal Molina MD Date/Time: 05/17/22 16:04 Surgeon: Aníbal Molina MD Pre Op Diagnosis: Anemia and other fecal abnormalities Patient Data Age: 62 Gender: F Height: 1.57 m Weight: 63 kg Allergies Allergy/AdvReac Type Severity Reaction Status Date / Time codeine AdvReac Unknown Nausea Verified 05/18/22 12:13 morphine AdvReac Unknown Nausea Verified 05/18/22 12:13 Home Medications Medication Instructions Recorded Confirmed Type aspirin 81 mg tablet,delayed 81 mg PO DAILY 05/01/19 05/18/22 History release calcium carbonate 600 mg-vitamin 1 cap PO DAILY 05/01/19 05/18/22 History D3 12.5 mcg (500 unit) capsule (Calcium 600 with Vitamin D3) loratadine 10 mg capsule 10 mg PO DAILY 05/01/19 05/18/22 History cholecalciferol (vitamin D3) 50 50 mcg PO DAILY 07/02/20 05/18/22 History mcg (2,000 unit) capsule cyclosporine 0.05 % eye drops in a 1 drp EACH EYE Q12H 07/02/20 05/18/22 History dropperette (Restasis) cyclobenzaprine 10 mg tablet See Rx Instructions .Route 07/25/20 05/18/22 Rx .COMPLEX #90 tabs diclofenac 75 mg-misoprostol 200 See Rx Instructions .Route 10/14/21 05/18/22 Rx mcg tablet,immediate,delayed .COMPLEX #180 tabs release gabapentin 100 mg capsule 300 mg PO TID 11/19/21 05/18/22 History losartan 50 mg-hydrochlorothiazide See Rx Instructions .Route 04/09/22 05/18/22 Rx 12.5 mg tablet .COMPLEX #90 tabs hydrocodone 5 mg-acetaminophen 325 1 tablet PO TID 04/19/22 05/18/22 History mg tablet ipratropium bromide 21 mcg (0.03 1 spray intranasal DAILY 04/19/22 05/18/22 History %) nasal spray pantoprazole 40 mg tablet,delayed 40 mg PO QAM #90 tabs 04/29/22 05/18/22 Rx release vitamins A,C,U-vhca-ibfavr 4,296 1 cap PO DAILY 04/29/22 05/18/22 History mcg-226 mg-90 mg capsule (PreserVision AREDS) sodium,potassium,mag sulfates 17.5 See Rx Instructions PO .COMPLEX 05/06/22 05/18/22 Rx gram-3.13 gram-1.6 gram oral soln #354 mL (Suprep Bowel Prep Kit) Patient hx anesthesia problems: none Family hx anesthesia problems: none Results Review: All pre-operative results and documents have been reviewed as part of the pre-operative evaluation. [facility] Past Medical History Medical History (Updated 05/18/22 @ 13:03 by Claudio Riddle DO) Chronic back pain Sees pain management for back pain Chronic, continuous use of opioids takes 5/325 norco tablets 3 times/day Fatty liver Hypertension Irritable bowel syndrome with diarrhea Mixed hyperlipidemia Osteopenia Seborrheic keratosis Surgical History Surgical History History of cervical spinal surgery (2000) History of endoscopic retrograde cholangiopancreatography (2004) History of eye surgery History of hysterectomy with oophorectomy History of laparoscopic cholecystectomy (2004) History of tonsillectomy (1962) History of tubal ligation (1991) Family History Family History Father Hypertension Family history of kidney disease Family history of coronary artery disease Family history of congestive heart failure Mother Hypertension Family history of osteoarthritis Cerebrovascular accident Family history of atrial fibrillation Family history of congestive heart failure Social History Social History Social History: Surrogate medical decision maker: Ricardo Canales, son. Code status: Full code. Smoking status: Never smoker Alcohol intake: never Alcohol use details: Social alcohol use in moderation. Substance use: never Substance use type: does not use Lack of Transportation: No Lack of Food: Never True Current Housing: I Have Housing Concerned About Future Housing: No Difficulty Pay
[2022-05-18 12:15] VITALS: BP 140/75; PULSE 89; RESP 20; TEMP 37; O2SAT 100
[2022-05-18] MEDS: LACTATED RINGERS 1,000 ML 150 ML IV CONT (12:24)
--- NOTE | 2022-05-18 12:57 | PM.HPGS ---
History of Present Illness History of Present Illness Consent: Risks, benefits, and alternatives have been discussed and questions answered. Patient agrees to proceed with procedure. Chief complaint: Anemia and other fecal abnormalities Narrative: Clara Canales is a 62 year old female Presents for colonoscopy. Patient recently hospitalized with small bowel obstruction. She was told this likely was from adhesions. Patient was discharged and followed up with primary care service. She was found to have a mild normochromic normocytic anemia which has improved. Stool for occult blood was positive. For this reason referred for colonoscopy. Patient denies any obvious bleeding. She denies any significant abdominal pain. She states occasionally will have discomfort left abdomen. Patient reports a colonoscopy by Dr. Rudd in the past that was unremarkable. Review of Systems Review of Systems: Review of systems noncontributory. All systems reviewed & are unremarkable except as noted in HPI and below PMFSH Past Medical History Medical History Chronic back pain Sees pain management. Fatty liver Hypertension Irritable bowel syndrome with diarrhea Mixed hyperlipidemia Osteopenia Seborrheic keratosis Surgical History Surgical History History of cervical spinal surgery (2000) History of endoscopic retrograde cholangiopancreatography (2004) History of eye surgery History of hysterectomy with oophorectomy History of laparoscopic cholecystectomy (2004) History of tonsillectomy (1962) History of tubal ligation (1991) Family History Family History Father Hypertension Family history of kidney disease Family history of coronary artery disease Family history of congestive heart failure Mother Hypertension Family history of osteoarthritis Cerebrovascular accident Family history of atrial fibrillation Family history of congestive heart failure Social History Social History Social History: Surrogate medical decision maker: Ricardo Canales, son. Code status: Full code. Smoking status: Never smoker Alcohol intake: never Alcohol use details: Social alcohol use in moderation. Substance use: never Substance use type: does not use Lack of Transportation: No Lack of Food: Never True Current Housing: I Have Housing Concerned About Future Housing: No Difficulty Paying Gas/Electric Bills: No Difficulty Paying for Meds: No Currently Unemployed: No Education: Bachelor's Degree Difficulty w/ Childcare or Family Care: No Living arrangements: with friend(s) Additional living arrangements comments: Lives in [place]. 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 Spiritual care concerns: No Meds Home Medications and Allergies Home Medications Medication Instructions Recorded Confirmed Type aspirin 81 mg tablet,delayed 81 mg PO DAILY 05/01/19 05/18/22 History release calcium carbonate 600 mg-vitamin 1 cap PO DAILY 05/01/19 05/18/22 History D3 12.5 mcg (500 unit) capsule (Calcium 600 with Vitamin D3) loratadine 10 mg capsule 10 mg PO DAILY 05/01/19 05/18/22 History cholecalciferol (vitamin D3) 50 50 mcg PO DAILY 07/02/20 05/18/22 History mcg (2,000 unit) capsule cyclosporine 0.05 % eye drops in a 1 drp EACH EYE Q12H 07/02/20 05/18/22 History dropperette (Restasis) cyclobenzaprine 10 mg tablet See Rx Instructions .Route 07/25/20 05/18/22 Rx .COMPLEX #90 tabs diclofenac 75 mg-misoprostol 200 See Rx Instructions .Route 10/14/21 05/18/22 Rx mcg tablet,immediate,delayed .COMPLEX #180 tabs release gabapentin 100 mg capsule 300 mg PO TID 11/19/21 05/18/22 History losartan 50 mg-hydrochlorothiazide See Rx Instructi
[2022-05-18 14:18] VITALS: BP 133/72; PULSE 95; RESP 16; O2SAT 100
--- NOTE | 2022-05-18 14:25 | WPDANESPN ---
Anes - Prog Note Post-Op Date/Time: 05/18/22 14:25 Cardiovascular status: normal Respiratory status: normal Airway patency: baseline Mental status: baseline Post-Op hydration status: normal Vital Signs: Last Vital Signs Temp 37.0 C 05/18/22 12:15 Pulse 89 05/18/22 12:15 Resp 20 05/18/22 12:15 BP 140/75 05/18/22 12:15 Pulse Ox 100 05/18/22 12:15 O2 Del Method Room Air 05/18/22 12:15 Pain Score (VAS): 0 I/O: Intake & Output 05/17/22 05/18/22 05/18/22 23:59 07:59 15:59 Intake Total 500 Balance 500 Post-procedural complaints: none Patient Feedback: Patient satisfied with anesthetic care. Other Findings: Patient vital signs back to baseline. Patient denies nausea and vomiting. Patient's pain under control. Patient OK for discharge.
[2022-05-18 14:28] VITALS: BP 134/78; PULSE 89; RESP 16; O2SAT 100
[2022-05-18 14:38] VITALS: BP 139/75; PULSE 88; RESP 18; O2SAT 100
== END 2022-05-18 15:00 | disposition home or self-care (01) ==
PROVIDERS: PCP Family Medicine; Visit Provider Internal Medicine Gastroenterology
PROC: 0DJD8ZZ Inspection of Lower Intestinal Tract, Via Natural or Artificial Opening Endoscopic (ICD-10-PCS; CPT 45378; principal; 2022-05-18 13:30)
DX: R19.5 Other fecal abnormalities (principal)
CPT/HCPCS: 45378

== ENCOUNTER 2022-05-25 10:17 | Outpatient (CLI) | payer OTHER, SELFPAY ==
[2022-05-25 14:19] LABS: Kit Draw Collected
== END 2022-05-25 10:18 | disposition home or self-care (01) ==
LOC: ANHGOSHLAB 10:19
PROVIDERS: PCP Family Medicine; Visit Provider Physician Assistant
DX: D64.9 Anemia, unspecified (principal); E83.51 Hypocalcemia
CPT/HCPCS: 36415

== ENCOUNTER → 2022-06-29 12:11 | Outpatient (CLI) | payer OTHER, SELFPAY ==
--- NOTE | ~2022-06-29 | DEXA_ITS ---
Bone Density Report Name: SONIA AVILA Age: 62 Sex: Female Ethnicity: White Date of : 1960 Indication: osteopenia; height loss; hysterectomy; postmenopausal Referring Provider: Brayden Murdock Study: Bone densitometry was performed. Exam Date: June 29, 2022 Accession number: [id number] Bone Density: Region BMD T-score Z-score Classification AP Spine (L1-L4) 1.033 -0.1 1.6 Normal Femoral Neck (Left) 0.723 -1.1 0.3 Osteopenia Total Hip (Left) 0.941 0.0 1.2 Normal Femoral Neck (Right) 0.738 -1.0 0.5 Normal Total Hip (Right) 0.914 -0.2 1.0 Normal Total Hip Mean 0.928 -0.1 1.1 Normal World Health Organization criteria for BMD impression classify patients as: Normal (T-score at or above -1.0), Osteopenia (T-score between -1.0 and -2.5), or Osteoporosis (T-score at or below -2.5). 10-year Fracture Risk(1): Major Osteoporotic Fracture 8.0% Hip Fracture 0.6% Reported Risk Factors: [place] (), Neck BMD=0.723, BMI=26.9 (1) FRAX(R) Version 3.08. Fracture probability calculated for an untreated patient. Fracture probability may be lower if the patient has received treatment. Previous Exams: Region Exam Age BMD T-score BMD Change BMD Change Date g/cm2 vs Baseline vs Previous AP Spine(L1-L4) 06/29/2022 62 1.033 -0.1 0.037* 0.110* 12/25/2019 59 0.923 -1.1 -0.073* 0.019 02/04/2014 53 0.904 -1.3 -0.092* -0.009 08/07/2010 50 0.913 -1.2 -0.083* -0.083* 04/10/2008 48 0.996 -0.5 Total Hip(Left) 06/29/2022 62 0.941 0.0 -0.083* -0.042* 12/25/2019 59 0.983 0.3 -0.041* 0.008 02/04/2014 53 0.975 0.3 -0.049* -0.001 08/07/2010 50 0.977 0.3 -0.048* -0.048* 04/10/2008 48 1.025 0.7 Total Hip(Right) 06/29/2022 62 0.914 -0.2 -0.149* -0.105* 12/25/2019 59 1.019 0.6 -0.044* 0.035* 02/04/2014 53 0.985 0.4 -0.078* -0.004 08/07/2010 50 0.989 0.4 -0.074* -0.074* 04/10/2008 48 1.063 1.0 *Denotes significance at 95% confidence level, LSC for AP Spine = 0.022 g/cm2, LSC for Total Hip = 0.027 g/cm2 Clinical Information Provided by Patient: Has used the following medications: Vitamin D, Calcium Has the following medical conditions: Hysterectomy Patient maximum height was 62 Menopause Age: 42 No regular weight bearing exercise Drink
--- NOTE | ~2022-06-29 | MM_ITS ---
EXAMINATION: MM screening feliciano BI w kenneth HISTORY: Screening mammogram TECHNIQUE: Craniocaudal and mediolateral oblique 3-D tomosynthesis images were obtained and synthetic 2-D images were generated. CAD analysis was submitted and interpreted. COMPARISON: May 25, 2021, December 25, 2019, September 08, 2018 bilateral screening mammogram examin ations BREAST PARENCHYMAL COMPOSITION: The breasts are almost entirely fatty. FINDINGS: There is no evidence of suspicious mass, calcification, or architectural distortion to sugg est malignancy in either breast. There has been no suspicious interval change. IMPRESSION: 1. No mammographic evidence of malignancy. 2. Recommend routine screening mammography in one year. BI-RADS Category 1: Negative Reviewed, dictated and finalized at location A.
== END ==
PROVIDERS: PCP Family Medicine; Visit Provider Physician Assistant
DX: Z12.31 Encounter for screening mammogram for malignant neoplasm of breast (principal); M85.80 Other specified disorders of bone density and structure, unspecified site; M85.852 Other specified disorders of bone density and structure, left thigh
CPT/HCPCS: 77063; 77067; 77080

== ENCOUNTER 2022-08-18 08:40 | Outpatient (CLI) | payer OTHER, SELFPAY ==
[2022-08-18 10:30] LABS: Kit Draw Collected
== END 2022-08-18 08:41 | disposition home or self-care (01) ==
LOC: ANHGOSHLAB 08:42
PROVIDERS: PCP Family Medicine; Visit Provider Physician Assistant
DX: D72.829 Elevated white blood cell count, unspecified (principal); E78.2 Mixed hyperlipidemia; I10 Essential (primary) hypertension; R73.9 Hyperglycemia, unspecified
CPT/HCPCS: 36415

== ENCOUNTER 2022-08-20 11:12 | Outpatient (CLI) | payer OTHER, SELFPAY ==
[2022-08-20 12:02] LABS: Kit Draw Collected
== END 2022-08-20 11:13 | disposition home or self-care (01) ==
LOC: ANHGOSHLAB 11:14
PROVIDERS: PCP Family Medicine; Visit Provider Family Medicine
DX: D64.9 Anemia, unspecified (principal)
CPT/HCPCS: 36415

== ENCOUNTER 2022-09-09 13:50 | Outpatient (CLI) | payer OTHER, SELFPAY ==
[2022-09-10 08:59] LABS: Kit Draw Collected
== END 2022-09-09 13:51 | disposition home or self-care (01) ==
LOC: ANHGOSHLAB 13:52
PROVIDERS: PCP Family Medicine; Visit Provider Physician Assistant
DX: D64.9 Anemia, unspecified (principal); R06.02 Shortness of breath
CPT/HCPCS: 36415

== ENCOUNTER → 2022-09-09 14:01 | Outpatient (CLI) | payer OTHER, SELFPAY ==
--- NOTE | ~2022-09-09 | XR_ITS ---
EXAMINATION: XR chest 2V 09/09/2022 14:15 INDICATION: Anemia. Shortness of breath. PROCEDURE: 2 view chest COMPARISON: 04/19/2022 FINDINGS: The lungs are clear. The cardiomediastinal silhouette is within normal limits. There are no pleural effusions. There is no pneumothorax suspected. IMPRESSION: 1: NO ACUTE CARDIOPULMONARY DISEASE. Reviewed, dictated and finalized at location L.
== END ==
PROVIDERS: PCP Family Medicine; Visit Provider Physician Assistant
DX: D64.9 Anemia, unspecified (principal); R06.02 Shortness of breath
CPT/HCPCS: 71046

== ENCOUNTER 2022-09-11 09:31 | Outpatient (CLI) | payer OTHER, SELFPAY ==
--- NOTE | 2022-09-11 09:43 | ECHO_ITS ---
Patient Info Name: Clara Canales Age: 62 years : 1960 Gender: Female Ht: 62 in Wt: 136 lbs BSA: 1.65 m2 HR: 98 bpm BP: 147 / 67 mmHg Technical Quality: Fair Exam Date: 09/11/2022 10:42 AM Exam Location: [facility]monary Patient Status: Outpatient Admit Date: 09/11/2022 Staff Ordering Physician: Brayden Murdock PA-C Telecommunications Sales Representative: Alex Reid RDCS Attending Provider: Brayden Murdock PA-C Referring Physician: Collette GARDNER; Exam Type: CA echo doppler color flow Study Info Indications - anemia Complete two-dimensional, color flow and Doppler transthoracic echocardiogram is performed. Summary 1. Complete two-dimensional, color flow and Doppler transthoracic echocardiogram is performed. 2. Left ventricular chamber dimension is normal. 3. Left ventricular systolic function is normal, estimated at 60-65%. 4. The left ventricular diastolic function is grade I diastolic dysfunction. 5. E/e' 11 is mildly elevated. 6. There is mild mitral valve regurgitation. 7. There is mild tricuspid valve regurgitation. 8. No pulmonary hypertension, estimated pulmonary arterial systolic pressure is 19 mmHg. 9. There is trace pulmonic regurgitation. Left Ventricle E/e' 11 is mildly elevated. Left ventricular chamber dimension is normal. Left ventricular systolic function is normal, estimated at 60-65%. The left ventricular diastolic function is grade I diastolic dysfunction. Right Ventricle Right ventricular systolic function is normal and with normal TAPSE 2.1 cm. Right ventricular chamber dimension is normal. Left Atria Left atrial chamber dimension is normal. Right Atria Right atrial chamber dimension is normal. Aortic Valve The aortic valve is trileaflet. There is no aortic valve stenosis. There is no aortic valve regurgitation. Pulmonic Valve There is trace pulmonic regurgitation. Mitral Valve There is no mitral valve stenosis. There is mild mitral valve regurgitation. Tricuspid Valve There is mild tricuspid valve regurgitation. No pulmonary hypertension, estimated pulmonary arterial systolic pressure is 19 mmHg. Pericardium/Pleural There is no pericardial effusion. Inferior Vena Cava Normal inferior vena cava with >50% collapse upon inspiration consistent with normal right atrial pressure, 5 mmHg. Aorta The aortic root size at the sinus of Valsalva is normal. Left Ventricular Outflow Tract Name Value Normal LVOT 2D LVOT Diameter 2.0 cm LVOT Doppler LVOT Peak Gradient 4 mmHg LVOT Mean Gradient 2 mmHg LVOT VTI 18 cm LVOT VTI/AV VTI Ratio 0.8 LVOT Stroke Volume 56 ml LVOT CO 4.3 l/min LVOT CI 2.6 l/min/m2 Pulmonic Valve Name Value Normal RVOT Doppler RVOT Peak Gradient 1 mmHg Mitral Valve -
== END 2022-09-11 09:32 | disposition home or self-care (01) ==
PROVIDERS: PCP Family Medicine; Visit Provider Physician Assistant
DX: D64.9 Anemia, unspecified (principal); R06.02 Shortness of breath; I34.0 Nonrheumatic mitral (valve) insufficiency; I36.1 Nonrheumatic tricuspid (valve) insufficiency
CPT/HCPCS: 93306

== ENCOUNTER 2022-09-16 20:55 | Outpatient (NON) | payer OTHER, SELFPAY ==
[2022-09-16 22:58] LABS: IFOB Positive Control Positive; Immunochemical Fecal Occult Bl Positive (N)
== END 2022-09-16 20:56 | disposition home or self-care (01) ==
LOC: ANHLAB 20:57
PROVIDERS: PCP Family Medicine; Visit Provider Physician Assistant
DX: D64.9 Anemia, unspecified (principal)
CPT/HCPCS: 82274

== ENCOUNTER 2022-09-24 14:48 | Outpatient (CLI) | payer OTHER, SELFPAY ==
[2022-09-24 15:10] LABS: Kit Draw Collected
== END 2022-09-24 14:49 | disposition home or self-care (01) ==
LOC: ANHGOSHLAB 14:50
PROVIDERS: PCP Family Medicine; Visit Provider Nurse Practitioner Family
DX: D64.9 Anemia, unspecified (principal)
CPT/HCPCS: 36415

== ENCOUNTER 2022-10-08 08:29 | Outpatient (CLI) | payer OTHER, SELFPAY ==
--- NOTE | ~2022-10-08 | CT_ITS ---
CT of the Abdomen and Pelvis: Indication: Abdominal pain Technique: 2.5 mm axial scans were obtained through the abdomen and pelvis following intravenous adm inistration of 100 cc of Omnipaque 350. Dose reduction technique was used on this scan by utilizing a utomated exposure control and iterative reconstruction technique. The dose-length product (DLP) was 4 73.25 mGy-cm. COMPARISON: 04/19/2022 Findings: Scans through the lung bases are unremarkable. Mild central biliary dilatation is probably related to prior cholecystectomy. The liver, spleen, panc reas, adrenals and kidneys are otherwise within normal limits. Mild atherosclerotic calcifications of the aorta are noted. No lymphadenopathy. No bowel obstruction or bowel wall thickening. There is no evidence to suggest acute appendicitis. Images through the pelvis were performed. Urinary bladder unremarkable. Probable small calcified fibr oid. No other adnexal mass seen. No ascites. 1 cm anterolisthesis of L5 over S1 noted, severe degener ative disc narrowing at L5-S1. Impression: No acute abnormality evident. Minimal biliary dilatation is stable from prior exam, and likely related to prior cholecystectomy. Reviewed, dictated and finalized at [facility]. Impression: No acute abnormality evident. Minimal biliary dilatation is stable from prior exam, and likely related to brendan or cholecystectomy.
[2022-10-08 09:28] LABS: Estimated Glomerular Filt Rate > 60
== END 2022-10-08 08:30 | disposition home or self-care (01) ==
PROVIDERS: PCP Family Medicine; Visit Provider Nurse Practitioner Family
DX: R10.9 Unspecified abdominal pain (principal); R11.2 Nausea with vomiting, unspecified; Z87.19 Personal history of other diseases of the digestive system
CPT/HCPCS: 74177; Q9967

== ENCOUNTER 2022-10-14 06:58 | Day surgery (SDC) | payer OTHER, SELFPAY ==
[2022-10-05 14:56] VITALS: BMI 24.5
--- NOTE | 2022-10-13 12:44 | WPDANESEPPF ---
Anes - Initial Pre Proc Eval Procedure: Operation Date: 10/14/22 09:00 Proposed Procedures p Esophagogastroduodenoscopy - Aníbal Molina MD Date/Time: 10/13/22 12:44 Surgeon: Aníbal Molina MD Pre Op Diagnosis: Unspecified Anemia Patient Data Age: 62 Gender: F Height: 1.57 m Weight: 61 kg Allergies Allergy/AdvReac Type Severity Reaction Status Date / Time codeine AdvReac Unknown Nausea and Verified 10/14/22 07:42 Vomiting morphine AdvReac Unknown Nausea and Verified 10/14/22 07:42 Vomiting Home Medications Medication Instructions Recorded Confirmed Type aspirin 81 mg tablet,delayed 81 mg PO DAILY 05/01/19 10/14/22 History release loratadine 10 mg capsule 10 mg PO DAILY 05/01/19 10/14/22 History cholecalciferol (vitamin D3) 50 50 mcg PO HS 07/02/20 10/14/22 History mcg (2,000 unit) capsule cyclosporine 0.05 % eye drops in a 1 drp EACH EYE Q12H 07/02/20 10/14/22 History dropperette (Restasis) cyclobenzaprine 10 mg tablet See Rx Instructions .Route 07/25/20 10/14/22 Rx .COMPLEX #90 tabs hydrocodone 5 mg-acetaminophen 325 1 tablet PO TID 04/19/22 10/14/22 History mg tablet ipratropium bromide 21 mcg (0.03 1 spray intranasal DAILY 04/19/22 10/14/22 History %) nasal spray pantoprazole 40 mg tablet,delayed 40 mg PO QAM #90 tabs 04/29/22 10/14/22 Rx release vitamins A,C,R-ywvn-buqvei 4,296 1 cap PO BID 04/29/22 10/14/22 History mcg-226 mg-90 mg capsule (PreserVision AREDS) calcium carbonate 600 mg-vitamin 1 cap PO BID 05/27/22 10/14/22 History D3 12.5 mcg (500 unit) capsule (Calcium 600 with Vitamin D3) ferrous sulfate 325 mg (65 mg 325 mg PO BID 08/26/22 10/14/22 History iron) tablet diphenhydramine HCl 50 mg capsule 50 mg PO HS 10/05/22 10/14/22 History docusate sodium 100 mg capsule 100 mg PO DAILY 10/05/22 10/14/22 History multivit with minerals-iron 18 1 tablet PO DAILY 10/05/22 10/14/22 History mg-folic ac 400 mcg-vit K 25 mcg tablet (Adults Multivitamin) vitamin E 200 unit capsule 200 unit PO DAILY 10/05/22 10/14/22 History losartan 50 mg-hydrochlorothiazide See Rx Instructions .Route 10/11/22 10/14/22 Rx 12.5 mg tablet .COMPLEX #90 tabs Patient hx anesthesia problems: none Family hx anesthesia problems: none Results Review: All pre-operative results and documents have been reviewed as part of the pre-operative evaluation. [facility] Past Medical History Medical History Abdominal pain Chronic back pain Sees pain management for back pain Chronic, continuous use of opioids takes 5/325 norco tablets 3 times/day Fatty liver Hypertension Irritable bowel syndrome with diarrhea Mixed hyperlipidemia Osteopenia Seborrheic keratosis Surgical History Surgical History History of cervical spinal surgery (2000) History of endoscopic retrograde cholangiopancreatography (2004) History of eye surgery History of hysterectomy with oophorectomy History of laparoscopic cholecystectomy (2004) History of tonsillectomy (1962) History of tubal ligation (1991) Family History Family History Father Hypertension Family history of kidney disease Family history of coronary artery disease Family history of congestive heart failure Mother Hypertension Family history of osteoarthritis Cerebrovascular accident Family history of atrial fibrillation Family history of congestive heart failure Social History Social History Social History: Surrogate medical decision maker: Ricardo Canales, son. Code status: Full code. Smoking status: Never smoker Alcohol intake: current Drinks per week: 1 Alcohol use details: Social alcohol use in moderation. Substance use: never Substance use type: does not use Lack of [place]
[2022-10-14 07:44] VITALS: BP 117/88; PULSE 124; RESP 18; TEMP 36.8; O2SAT 100; BMI 24.5
--- NOTE | 2022-10-14 08:28 | PM.HPGS ---
History of Present Illness History of Present Illness Consent: Risks, benefits, and alternatives have been discussed and questions answered. Patient agrees to proceed with procedure. Chief complaint: Iron Deficiency Anemia Narrative: Clara Canales is a 62 year old female Presents for EGD. Patient has a history of small-bowel obstruction in April of 2022. She was felt to have adhesions causing this. This resolved with conservative management. Patient subsequently was found to have iron deficiency anemia occult blood in stools a colonoscopy performed in April revealed internal hemorrhoids accounting for occult blood loss. A small-bowel follow-through at that time was unremarkable. Patient improved with iron supplementation. She discontinued the iron shortly after her initial presentation. She does have a history of chronic anemia for which she takes diclofenac. Re repeat blood studies now reveal recurrence of her anemia with iron deficient indices. She is referred for an EGD. Stool occult blood was apparently confirmed to be positive. Patient's family history is noncontributory. She did discontinue the diclofenac 2 weeks ago. She currently has been on iron for a very short interval at this point. Patient remains on pantoprazole currently prescribed 2 weeks ago. Review of Systems Review of Systems: Review of systems noncontributory. [facility] Past Medical History Medical History Abdominal pain Chronic back pain Sees pain management for back pain Chronic, continuous use of opioids takes 5/325 norco tablets 3 times/day Fatty liver Hypertension Irritable bowel syndrome with diarrhea Mixed hyperlipidemia Osteopenia Seborrheic keratosis Surgical History Surgical History History of cervical spinal surgery (2000) History of endoscopic retrograde cholangiopancreatography (2004) History of eye surgery History of hysterectomy with oophorectomy History of laparoscopic cholecystectomy (2004) History of tonsillectomy (1962) History of tubal ligation (1991) Family History Family History Father Hypertension Family history of kidney disease Family history of coronary artery disease Family history of congestive heart failure Mother Hypertension Family history of osteoarthritis Cerebrovascular accident Family history of atrial fibrillation Family history of congestive heart failure Social History Social History Social History: Surrogate medical decision maker: Ricardo Cassens, son. Code status: Full code. Smoking status: Never smoker Alcohol intake: current Drinks per week: 1 Alcohol use details: Social alcohol use in moderation. Substance use: never Substance use type: does not use Lack of Transportation: No Lack of Food: Never True Current Housing: I Have Housing Concerned About Future Housing: No Difficulty Paying Gas/Electric Bills: No Difficulty Paying for Meds: No Currently Unemployed: No Education: Bachelor's Degree Difficulty w/ Childcare or Family Care: No Living arrangements: alone Additional living arrangements comments: Lives in [place]. 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 Spiritual care concerns: No Meds Home Medications and Allergies Home Medications Medication Instructions Recorded Confirmed Type aspirin 81 mg tablet,delayed 81 mg PO DAILY 05/01/19 10/14/22 History release loratadine 10 mg capsule 10 mg PO DAILY 05/01/19 10/14/22 History cholecalciferol (vitamin D3) 50 50 mcg PO HS 07/02/20 10/14/22 History mcg (2,000 unit) capsule cyclosporine 0.05 % eye drops in a 1 drp EACH EYE Q12H 07/02/20 10/14/22 History dropperette (Restasis) cyclobenzaprine 10 mg tablet
[2022-10-14] MEDS: LACTATED RINGERS 1,000 ML 150 ML IV CONT (08:34)
[2022-10-14 09:30] VITALS: BP 131/66; PULSE 90; RESP 14; O2SAT 95
[2022-10-14 09:40] VITALS: BP 132/69; PULSE 89; RESP 14; O2SAT 100
[2022-10-14 09:50] VITALS: BP 144/83; PULSE 80; RESP 16; O2SAT 100
--- NOTE | 2022-10-14 12:21 | WPDANESPN ---
Anes - Prog Note Post-Op Date/Time: 10/14/22 12:21 Cardiovascular status: normal Respiratory status: normal Airway patency: baseline Mental status: baseline Post-Op hydration status: normal Vital Signs: Last Vital Signs Temp 36.8 C 10/14/22 07:44 Pulse 80 10/14/22 09:50 Resp 16 10/14/22 09:50 BP 144/83 H 10/14/22 09:50 Pulse Ox 100 10/14/22 09:50 O2 Del Method Room Air 10/14/22 09:50 Pain Score (VAS): 0 I/O: Intake & Output 10/13/22 10/14/22 10/14/22 23:59 07:59 15:59 Intake Total 975 Balance 975 Post-procedural complaints: none Patient Feedback: Patient satisfied with anesthetic care.
== END 2022-10-14 10:05 | disposition home or self-care (01) ==
PROVIDERS: PCP Family Medicine; Visit Provider Internal Medicine Gastroenterology
PROC: 0DJ08ZZ Inspection of Upper Intestinal Tract, Via Natural or Artificial Opening Endoscopic (ICD-10-PCS; CPT 43235; principal; 2022-10-14 09:00)
DX: D50.9 Iron deficiency anemia, unspecified (principal)
CPT/HCPCS: 43239

== ENCOUNTER 2022-10-14 08:00 | Outpatient (NON) | payer OTHER, SELFPAY | END 2022-10-14 08:01 | disposition home or self-care (01) | LOC: ANHLAB 10-15 08:11 | PROVIDERS: PCP Family Medicine; Visit Provider Internal Medicine Gastroenterology | DX: D64.9 Anemia, unspecified (principal) | CPT/HCPCS: 88305 ==

== ENCOUNTER 2022-11-09 09:02 | Outpatient (CLI) | payer OTHER, SELFPAY ==
[2022-11-09 19:18] LABS: Iron 78 ug/dL (37-170)
[2022-11-09 19:28] LABS: Percent Iron Saturation 25 % (20-50)
[2022-11-09 19:56] LABS: Alanine Aminotransferase 27 U/L (6-35); Albumin Level 3.2 g/dL (3.5-5.1); Alkaline Phosphatase 81 U/L (38-126); Anion Gap 5 mmol/L (8-16); Aspartate Amino Transferase 43 U/L (14-36); Bilirubin,Total 0.2 mg/dL (0.2-1.3); Blood Urea Nitrogen 16 mg/dL (7-17); Calcium 8.4 mg/dL (8.4-10.2); Carbon Dioxide 30 mmol/L (22-30); Chloride 103 mmol/L (98-107); Estimated Glomerular Filt Rate > 60; Glucose 53 mg/dL (65-110); Potassium 3.7 mmol/L (3.4-5.0); Sodium 138 mmol/L (137-145)
[2022-11-09 20:33] LABS: Basophils Absolute Auto 0.1 K/mm3 (0.0-0.1); Basophils Percent Auto 1.4 % (0.2-1.2); Eosinophils Absolute Auto 0.4 K/mm3 (0-0.3); Hematocrit 38.2 % (37.0-47.0); Hemoglobin 11.7 g/dL (12.0-15.0); Immature Granulocyte Absolute 0.03 K/mm3 (0.00-0.031); Immature Granulocyte Percent A 0.4 % (0-0.5); Lymphocytes Percent Auto 32.1 % (18.3-44.2); Mean Corpuscular HGB Conc 30.6 g/dl (32-36); Mean Corpuscular Hemoglobin 28.6 pg (26-34); Mean Corpuscular Volume 93.4 fl (80-100); Mean Platelet Volume 9.8 fl (7.4-10.4); Monocytes Absolute Auto 0.6 K/mm3 (0.1-0.6); Monocytes Percent Auto 8.2 % (2.6-8.5); Neutrophils Absolute Auto 3.7 K/mm3 (1.3-6.7); Neutrophils Percent Auto 51.9 % (45.5-73.1); Platelet Count Result 420 k/mm3 (150-375); Red Blood Count 4.09 M/mm3 (4.2-5.4); Red Cell Distribution Width 16.4 % (11.5-14.5); White Blood Count 7.2 K/mm3 (4.5-10.0)
[2022-11-09 20:50] LABS: Folic Acid > 20.0 ng/mL (2.76->20)
[2022-11-09 21:11] LABS: Erythrocyte Sedimentation Rate 13 mm/hr (0-20)
== END 2022-11-09 09:03 | disposition home or self-care (01) ==
LOC: ANHGOSHLAB 09:04
PROVIDERS: PCP Family Medicine; Visit Provider Physician Assistant
DX: D50.9 Iron deficiency anemia, unspecified (principal)
CPT/HCPCS: 36415; 80053; 82607; 82728; 82746; 83540; 83550; 85025; 85652

== ENCOUNTER 2022-12-17 09:38 | Outpatient (CLI) | payer OTHER, SELFPAY ==
[2022-12-17 12:09] LABS: Kit Draw Collected
== END 2022-12-17 09:39 | disposition home or self-care (01) ==
PROVIDERS: PCP Family Medicine; Visit Provider Physician Assistant
DX: R74.01 Elevation of levels of liver transaminase levels (principal); E16.2 Hypoglycemia, unspecified
CPT/HCPCS: 36415

== ENCOUNTER 2023-01-05 15:31 | Outpatient (CLI) | payer OTHER, SELFPAY ==
[2023-01-05 15:48] LABS: Basophils Absolute Auto 0.1 K/mm3 (0.0-0.1); Basophils Percent Auto 1.1 % (0.2-1.2); Eosinophils Absolute Auto 0.3 K/mm3 (0-0.3); Eosinophils Percent Auto 3.7 % (0-4.4); Hemoglobin 11.1 g/dL (12.0-15.0); Immature Granulocyte Absolute 0.02 K/mm3 (0.00-0.031); Immature Granulocyte Percent A 0.2 % (0-0.5); Lymphocytes Absolute Auto 2.38 K/mm3 (0.9-3.2); Lymphocytes Percent Auto 29.7 % (18.3-44.2); Mean Corpuscular HGB Conc 31.7 g/dl (32-36); Mean Corpuscular Hemoglobin 30.2 pg (26-34); Mean Corpuscular Volume 95.4 fl (80-100); Monocytes Absolute Auto 0.5 K/mm3 (0.1-0.6); Monocytes Percent Auto 6.1 % (2.6-8.5); Neutrophils Absolute Auto 4.7 K/mm3 (1.3-6.7); Neutrophils Percent Auto 59.2 % (45.5-73.1); Platelet Count Result 413 k/mm3 (150-375); Red Blood Count 3.67 M/mm3 (4.2-5.4); Red Cell Distribution Width 14.6 % (11.5-14.5)
[2023-01-05 17:45] LABS: Iron 166 ug/dL (37-170)
[2023-01-05 17:50] LABS: Alanine Aminotransferase 28 U/L (6-35); Albumin Level 3.7 g/dL (3.5-5.1); Alkaline Phosphatase 84 U/L (38-126); Anion Gap 4 mmol/L (8-16); Aspartate Amino Transferase 25 U/L (14-36); Bilirubin,Total 0.2 mg/dL (0.2-1.3); Blood Urea Nitrogen 14 mg/dL (7-17); Calcium 8.6 mg/dL (8.4-10.2); Carbon Dioxide 29 mmol/L (22-30); Chloride 102 mmol/L (98-107); Estimated Glomerular Filt Rate > 60; Glucose 101 mg/dL (65-110); Potassium 3.7 mmol/L (3.4-5.0); Sodium 135 mmol/L (137-145)
[2023-01-05 17:55] LABS: Percent Iron Saturation 53 % (20-50)
[2023-01-05 18:59] LABS: Folic Acid > 20.0 ng/mL (2.76->20)
[2023-01-11 12:33] LABS: Soluble Transferrin Receptor 1.44 mg/L (0.76-1.76)
== END 2023-01-05 15:32 | disposition home or self-care (01) ==
LOC: ANHLAB 15:34
PROVIDERS: PCP Family Medicine; Visit Provider Internal Medicine Hematology & Oncology
DX: D64.9 Anemia, unspecified (principal)
CPT/HCPCS: 36415; 80053; 82607; 82728; 82746; 83540; 83550; 84238; 85025

== ENCOUNTER 2023-03-14 11:03 | Outpatient (CLI) | payer MEDICARE, SELFPAY ==
[2023-03-14 11:19] LABS: Basophils Absolute Auto 0.1 K/mm3 (0.0-0.1); Basophils Percent Auto 0.8 % (0.2-1.2); Eosinophils Absolute Auto 0.1 K/mm3 (0-0.3); Eosinophils Percent Auto 1.9 % (0-4.4); Hematocrit 35.2 % (37.0-47.0); Hemoglobin 11.4 g/dL (12.0-15.0); Immature Granulocyte Absolute 0.04 K/mm3 (0.00-0.031); Immature Granulocyte Percent A 0.5 % (0-0.5); Lymphocytes Absolute Auto 2.25 K/mm3 (0.9-3.2); Lymphocytes Percent Auto 30.7 % (18.3-44.2); Mean Corpuscular HGB Conc 32.4 g/dl (32-36); Mean Corpuscular Hemoglobin 30.2 pg (26-34); Mean Corpuscular Volume 93.4 fl (80-100); Mean Platelet Volume 9.5 fl (7.4-10.4); Monocytes Absolute Auto 0.5 K/mm3 (0.1-0.6); Monocytes Percent Auto 6.8 % (2.6-8.5); Neutrophils Absolute Auto 4.4 K/mm3 (1.3-6.7); Neutrophils Percent Auto 59.3 % (45.5-73.1); Platelet Count Result 340 k/mm3 (150-375); Red Blood Count 3.77 M/mm3 (4.2-5.4); Red Cell Distribution Width 13.6 % (11.5-14.5); White Blood Count 7.3 K/mm3 (4.5-10.0)
[2023-03-14 11:56] LABS: Alanine Aminotransferase 24 U/L (6-35); Albumin Level 3.7 g/dL (3.5-5.1); Alkaline Phosphatase 82 U/L (38-126); Anion Gap 6 mmol/L (8-16); Aspartate Amino Transferase 24 U/L (14-36); Bilirubin,Total 0.2 mg/dL (0.2-1.3); Blood Urea Nitrogen 17 mg/dL (7-17); Calcium 9.3 mg/dL (8.4-10.2); Carbon Dioxide 26 mmol/L (22-30); Chloride 106 mmol/L (98-107); Estimated Glomerular Filt Rate > 60; Glucose 85 mg/dL (65-110); Potassium 3.8 mmol/L (3.4-5.0); Sodium 138 mmol/L (137-145)
[2023-03-14 13:12] LABS: Folic Acid > 20.0 ng/mL (2.76->20)
[2023-03-14 13:31] LABS: Iron 47 ug/dL (37-170)
[2023-03-14 13:40] LABS: Percent Iron Saturation 15 % (20-50)
[2023-03-18 17:58] LABS: Soluble Transferrin Receptor 1.17 mg/L (0.76-1.76)
== END 2023-03-14 11:04 | disposition home or self-care (01) ==
LOC: ANHLAB 11:06
PROVIDERS: PCP Family Medicine; Visit Provider Internal Medicine Hematology & Oncology
DX: D64.9 Anemia, unspecified (principal)
CPT/HCPCS: 36415; 80053; 82607; 82728; 82746; 83540; 83550; 84238; 85025

== ENCOUNTER 2023-03-15 12:52 | Inpatient (IN) | payer MEDICARE, OTHER, SELFPAY ==
[2023-03-15] VITALS (15 sets, daily range): BP systolic 132–162; BP diastolic 69–90; PULSE 80–100; RESP 10–20; TEMP 36.6–36.9; O2SAT 96–100
--- NOTE | ~2023-03-15 | XR_ITS ---
EXAMINATION: XR abdomen gastric tube insert DATE: 03/15/2023 19:04 INDICATION: Nasogastric tube placement. TECHNIQUE: An upright view of the abdomen was obtained. COMPARISON: CT abdomen and pelvis 03/15/2023 FINDINGS: The lower abdomen is excluded. There are no dilated loops of bowel. Surgical clips in the r ight upper quadrant are likely from cholecystectomy. The nasogastric tube tip is in the stomach. IMPRESSION: 1. Nasogastric tube tip in the stomach. Reviewed, dictated and finalized at location E. IN MAKER HAND
--- NOTE | ~2023-03-15 | CT_ITS ---
EXAMINATION: CT abdomen pelvis w con INDICATION: Abdominal pain TECHNIQUE: Computed tomographic images of the abdomen and pelvis were obtained after the administrati on of 100 cc of Omnipaque 350 intravenous contrast. The dose-length product (DLP) was 402.85 mGy-cm. Automated exposure control and iterative reconstruction technique were employed. COMPARISON: 10/08/2022 FINDINGS: Minimal dependent atelectasis is present in the lung bases. The heart size is normal. Truong es of cholecystectomy are noted. The liver is diffusely low in attenuation when compared with the spl een, consistent with hepatic steatosis. The spleen, pancreas, and adrenal glands are normal. The righ t kidney is unremarkable. Hypoattenuating lesions in the left kidney, measuring up to 5 mm, are too s mall to characterize but likely represent cysts. No pathologically enlarged abdominal or pelvic lymph nodes are identified. There is dilated small bowel in the midabdomen and pelvis with a transition po int in the lower abdomen. There is formed stool in mildly distended loops of pelvic small bowel. Ther e is a small amount of edema in the associated small bowel mesentery. A small volume of pelvic ascite s is noted. There is severe lumbar spondylosis. IMPRESSION: 1. Small bowel obstruction with transition point in the lower abdomen. Reviewed, dictated and finalized at location L. ATION TENDER HELPER
--- NOTE | ~2023-03-15 | XR_ITS ---
EXAMINATION: XR sm bowel follow through WS DATE: 03/17/2023 10:17 INDICATION: Small bowel obstruction TECHNIQUE: Railroad Shop Inspector radiograph(s) of the abdomen was/were obtained. Oral contrast was administered, and sequential radiographs of the abdomen were obtained until oral contrast was noted to be in the proxi mal colon. A total of 3 overhead radiographs were obtained. COMPARISON: None. FINDINGS: Nasogastric tube tip in proximal side port in the body the stomach on the bank cashier radiograph. There are also cholecystectomy clips in right upper quadrant. Small amount of stool scattered throughout the c olon. No dilated loops of gas-filled bowel on the initial bank cashier image. Mild thoracolumbar dextrocurva ture with severe spondylosis. Couple likely benign bone islands at the left femoral head. Transit time from the stomach to proximal colon was <15 minutes. There is normal caliber and mucosal fold pattern throughout the small bowel. IMPRESSION: 1. Normal small bowel follow-through with resolution of prior small bowel obstruction. Reviewed, dictated and finalized at location A. CH OPERATOR IMPRESSION: 1. Normal small bowel follow-through with resolution of prior small bowel obstr uction.
[2023-03-15 13:50] LABS: Appearance Urine Clear (Clear); Bilirubin Urine Negative (Negative); Blood Urine Negative (Negative); Color Urine Yellow (Yellow); Glucose Urine UA Negative (Negative); Ketones Urine Negative (Negative); Leukocyte Esterase Ur Negative LEU/UL (Negative); Nitrate Urine Negative (Negative); Protein Urine Negative (Negative); Specific Grav Ur 1.009 (1.001-1.035); Urobilinogen Urine 0.2 mg/dL (<2.0)
[2023-03-15] MEDS: fentaNYL CITRATE INJ (*CRX) 100 MCG/2 ML VIAL 50 MCG IV PUSH ×2 (13:53→18:56)
[2023-03-15] MEDS: SODIUM CHLORIDE 0.9% IV 1,000 ML 999 ML IV CONT (13:53)
[2023-03-15] MEDS: ONDANSETRON INJ 4 MG/2 ML VIAL IV PUSH (13:53)
[2023-03-15 13:55] LABS: Basophils Percent Auto 0.3 % (0.2-1.2); Eosinophils Percent Auto 0.1 % (0-4.4); Hematocrit 38.5 % (37.0-47.0); Hemoglobin 12.5 g/dL (12.0-15.0); Immature Granulocyte Absolute 0.03 K/mm3 (0.00-0.031); Immature Granulocyte Percent A 0.2 % (0-0.5); Lymphocytes Absolute Auto 1.71 K/mm3 (0.9-3.2); Lymphocytes Percent Auto 14.1 % (18.3-44.2); Mean Corpuscular HGB Conc 32.5 g/dl (32-36); Mean Corpuscular Hemoglobin 30.1 pg (26-34); Mean Corpuscular Volume 92.8 fl (80-100); Mean Platelet Volume 9.5 fl (7.4-10.4); Monocytes Absolute Auto 0.5 K/mm3 (0.1-0.6); Monocytes Percent Auto 3.7 % (2.6-8.5); Neutrophils Absolute Auto 9.9 K/mm3 (1.3-6.7); Neutrophils Percent Auto 81.6 % (45.5-73.1); Platelet Count Result 391 k/mm3 (150-375); Red Blood Count 4.15 M/mm3 (4.2-5.4); Red Cell Distribution Width 13.5 % (11.5-14.5); White Blood Count 12.1 K/mm3 (4.5-10.0)
[2023-03-15 14:11] LABS: Add Urine Microscopic? NO
[2023-03-15 14:25] LABS: Lactic Acid Reflex 1.2 mmol/L (0.7-2.0)
--- NOTE | 2023-03-15 14:25 | ED.ABDPAIN ---
HPI - Abdominal Pain General Chief Complaint: Abdominal Pain Stated Complaint: left side abdominal pain Time Seen by Provider: 03/15/23 13:13 History of Present Illness HPI narrative: patient presents the emergency department with left-sided abdominal pain. She had similar pain 6 months ago when she was diagnosed with a small-bowel obstruction. She has had multiple laparoscopic surgeries and is concerned she may have adhesions. The last small-bowel obstruction resolved with NG tube no surgical intervention needed. She has been nauseous without vomiting. She states she had a bowel movement today and denies any constipation or diarrhea. Also denies fevers or chills. She is accompanied by her . Related Data Home Medications Medication Instructions Recorded Confirmed loratadine 10 mg capsule 10 mg PO DAILY 05/01/19 02/10/23 cholecalciferol (vitamin D3) 50 50 mcg PO HS 07/02/20 02/10/23 mcg (2,000 unit) capsule cyclosporine 0.05 % eye drops in a 1 drp EACH EYE Q12H 07/02/20 02/10/23 dropperette (Restasis) hydrocodone 5 mg-acetaminophen 325 1 tablet PO TID 04/19/22 02/10/23 mg tablet ipratropium bromide 21 mcg (0.03 1 spray intranasal DAILY 04/19/22 02/10/23 %) nasal spray vitamins A,C,N-fcgm-oqtwew 4,296 1 cap PO BID 04/29/22 02/10/23 mcg-226 mg-90 mg capsule (PreserVision AREDS) calcium carbonate 600 mg-vitamin 1 cap PO BID 05/27/22 02/10/23 D3 12.5 mcg (500 unit) capsule (Calcium 600 with Vitamin D3) ferrous sulfate 325 mg (65 mg 325 mg PO BID 08/26/22 02/10/23 iron) tablet docusate sodium 100 mg capsule 100 mg PO DAILY 10/05/22 02/10/23 multivit with minerals-iron 18 1 tablet PO DAILY 10/05/22 02/10/23 mg-folic ac 400 mcg-vit K 25 mcg tablet (Adults Multivitamin) vitamin E 200 unit capsule 200 unit PO DAILY 10/05/22 02/10/23 diphenhydramine HCl 50 mg capsule 50 mg PO HS 12/16/22 02/10/23 gabapentin 100 mg capsule 100 mg PO DAILY 02/10/23 02/10/23 Allergies Allergy/AdvReac Type Severity Reaction Status Date / Time buprenorphine [From [place]] AdvReac Intermediate Nausea and Verified 02/10/23 11:33 Vomiting codeine AdvReac Unknown Nausea and Verified 02/10/23 11:32 Vomiting morphine AdvReac Unknown Nausea and Verified 02/10/23 11:32 Vomiting Review of Systems Review of Systems: Negative except what is documented in the [facility] Past Medical History Medical History Abdominal pain Chronic back pain Sees pain management for back pain Chronic, continuous use of opioids takes 5/325 norco tablets 3 times/day Fatty liver Hypertension Irritable bowel syndrome with diarrhea Mixed hyperlipidemia Osteopenia Seborrheic keratosis Surgical History Surgical History History of cervical spinal surgery (2000) History of endoscopic retrograde cholangiopancreatography (2004) History of eye surgery History of hysterectomy with oophorectomy History of laparoscopic cholecystectomy (2004) History of tonsillectomy (1962) History of tubal ligation (1991) Family History Family History Father Hypertension Family history of kidney disease Family history of coronary artery disease Family history of congestive heart failure Mother Hypertension Family history of osteoarthritis Cerebrovascular accident Family history of atrial fibrillation Family history of congestive heart failure Social History Social History Social History: Surrogate medical decision maker: Ricardo Canales, son. Code status: Full code. Smoking status: Never smoker Alcohol intake: current Drinks per week: 1 Alcohol use details: Social alcohol use in moderation. Substance use: never Substance use type: does not use Lack of Transportation: No [place]
[2023-03-15 14:27] LABS: Alanine Aminotransferase 24 U/L (6-35); Albumin Level 3.8 g/dL (3.5-5.1); Alkaline Phosphatase 92 U/L (38-126); Anion Gap 5 mmol/L (8-16); Aspartate Amino Transferase 29 U/L (14-36); Bilirubin,Total 0.2 mg/dL (0.2-1.3); Blood Urea Nitrogen 15 mg/dL (7-17); Carbon Dioxide 26 mmol/L (22-30); Chloride 105 mmol/L (98-107); Estimated CRCL calculation 90 ml/min; Estimated Glomerular Filt Rate > 60; Glucose 101 mg/dL (65-110); Potassium 3.8 mmol/L (3.4-5.0); Sodium 136 mmol/L (137-145)
--- NOTE | 2023-03-15 17:51 | PM.IMHP ---
H&P: HPI History of Present Illness Date/Time: 03/15/23 17:51 Chief Complaint: Abdominal Pain, Nausea Narrative: 63 y/o F presents here with abdominal pain and nausea with PMH of SBO, chronic back pain HTN, IBS, and HLD. Patient presented here with left-sided abdominal pain accompanied by nausea without vomiting that began through the night around 4-5 a.m. Pain woke patient from her sleep. Described pain as similar to her previous small-bowel obstruction. Last bowel movement was this morning. She described it as semi formed/lose and she had several episodes. She denies any abnormal colored stools, shortness of breath, constipation, fevers, or chills. Previous SBO was managed with bowel rest and NG tube. Recently had anemia workup with EGD and colonoscopy, going to follow with [facility] and currently on iron supplement. Review of Systems Review of Systems: All systems reviewed & are unremarkable except as noted in HPI and below PMFSH Past Medical History Medical History Abdominal pain Chronic back pain Sees pain management for back pain Chronic, continuous use of opioids takes 5/325 norco tablets 3 times/day Fatty liver Hypertension Irritable bowel syndrome with diarrhea Mixed hyperlipidemia Osteopenia Seborrheic keratosis Surgical History Surgical History History of cervical spinal surgery (2000) History of endoscopic retrograde cholangiopancreatography (2004) History of eye surgery History of hysterectomy with oophorectomy History of laparoscopic cholecystectomy (2004) History of tonsillectomy (1962) History of tubal ligation (1991) Family History Family History Father Hypertension Family history of kidney disease Family history of coronary artery disease Family history of congestive heart failure Mother Hypertension Family history of osteoarthritis Cerebrovascular accident Family history of atrial fibrillation Family history of congestive heart failure Social History Social History Social History: Surrogate medical decision maker: Ricardo Canales, jac. Code status: Full code. Smoking status: Never smoker Alcohol intake: current Drinks per week: 1 Alcohol use details: Social alcohol use in moderation. Substance use: never Substance use type: does not use Lack of Transportation: No Lack of Food: Never True Current Housing: I Have Housing Concerned About Future Housing: No Difficulty Paying Gas/Electric Bills: No Difficulty Paying for Meds: No Currently Unemployed: No Education: Bachelor's Degree Difficulty w/ Childcare or Family Care: No Living arrangements: alone Additional living arrangements comments: Lives in [place]. 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 Spiritual care concerns: No Meds Home Medications and Allergies Home Medications Medication Instructions Recorded Confirmed Type loratadine 10 mg capsule 10 mg PO DAILY 05/01/19 03/15/23 History cholecalciferol (vitamin D3) 50 50 mcg PO HS 07/02/20 03/15/23 History mcg (2,000 unit) capsule cyclosporine 0.05 % eye drops in a 1 drp EACH EYE Q12H 07/02/20 03/15/23 History dropperette (Restasis) cyclobenzaprine 10 mg tablet See Rx Instructions .Route 07/25/20 03/15/23 Rx .COMPLEX #90 tabs hydrocodone 5 mg-acetaminophen 325 1 tablet PO TID 04/19/22 03/15/23 History mg tablet ipratropium bromide 21 mcg (0.03 1 spray intranasal DAILY 04/19/22 03/15/23 History %) nasal spray vitamins A,C,T-lodd-kcniwa 4,296 1 cap PO BID 04/29/22 03/15/23 History mcg-226 mg-90 mg capsule (PreserVision AREDS) calcium carbonate 600 mg-vitamin 1 cap PO BID 05/27/22 03/15/23 History D3 12.5 mcg (500 unit) capsule (Calcium 600 wi
[2023-03-15] MEDS: LACTATED RINGERS 1,000 ML 100 ML IV CONT (19:41)
[2023-03-16 00:02] VITALS: BMI 25.2
[2023-03-16 00:07] VITALS: BP 142/78; PULSE 82; RESP 18; TEMP 36.4; O2SAT 99
--- NOTE | 2023-03-16 00:08 | ADMGEN ---
This patient, Clara Canales, was admitted to [facility] Surg Room 320-01. Patient/family oriented to hospital policies and general routines including ID bracelet, bed and alarms, visiting hours, pain management, procedures, bathroom and other care routines, personal items, smoking policy, room service/diet, and visiting hours. Information on how to activate the Rapid Response Team has been discussed. Patient/Family are encouraged to report perceived risks to care and to ask questions if they do not understand what they are told or what they should do.
[2023-03-16] MEDS: fentaNYL CITRATE INJ (*CRX) 100 MCG/2 ML VIAL 25 MCG IV PUSH ×4 (00:47→20:33)
[2023-03-16 06:00] VITALS: BP 158/86; PULSE 92; RESP 17; TEMP 36.4; O2SAT 97
[2023-03-16 06:19] LABS: INR 0.9; Partial Thromboplastin Time 26.5 SECONDS (22.3-36.8); Prothrombin Time 12.6 Seconds (11.1-14.7)
[2023-03-16 06:24] LABS: Basophils Percent Auto 0.4 % (0.2-1.2); Eosinophils Absolute Auto 0.1 K/mm3 (0-0.3); Eosinophils Percent Auto 0.8 % (0-4.4); Hemoglobin 11.9 g/dL (12.0-15.0); Immature Granulocyte Absolute 0.02 K/mm3 (0.00-0.031); Immature Granulocyte Percent A 0.2 % (0-0.5); Lymphocytes Absolute Auto 2.29 K/mm3 (0.9-3.2); Lymphocytes Percent Auto 25.4 % (18.3-44.2); Mean Corpuscular HGB Conc 32.2 g/dl (32-36); Mean Corpuscular Hemoglobin 30.3 pg (26-34); Mean Corpuscular Volume 94.1 fl (80-100); Monocytes Absolute Auto 0.7 K/mm3 (0.1-0.6); Monocytes Percent Auto 7.6 % (2.6-8.5); Neutrophils Absolute Auto 5.9 K/mm3 (1.3-6.7); Neutrophils Percent Auto 65.6 % (45.5-73.1); Platelet Count Result 346 k/mm3 (150-375); Red Blood Count 3.93 M/mm3 (4.2-5.4); Red Cell Distribution Width 13.6 % (11.5-14.5)
[2023-03-16 06:41] LABS: Alanine Aminotransferase 20 U/L (6-35); Albumin Level 3.4 g/dL (3.5-5.1); Alkaline Phosphatase 90 U/L (38-126); Anion Gap 5 mmol/L (8-16); Aspartate Amino Transferase 23 U/L (14-36); Bilirubin,Total 0.4 mg/dL (0.2-1.3); Blood Urea Nitrogen 11 mg/dL (7-17); Calcium 8.6 mg/dL (8.4-10.2); Carbon Dioxide 28 mmol/L (22-30); Chloride 105 mmol/L (98-107); Estimated CRCL calculation 74 ml/min; Estimated Glomerular Filt Rate > 60; Glucose 92 mg/dL (65-110); Potassium 3.4 mmol/L (3.4-5.0); Sodium 138 mmol/L (137-145)
[2023-03-16 08:00] VITALS: O2SAT 97
[2023-03-16] MEDS: SODIUM CHLORIDE 0.9% IV 1,000 ML 100 ML IV CONT ×2 (09:24→20:38)
[2023-03-16] MEDS: PHENOL/SOD PHENO SPRAY CHERRY (*BKC) 1 SPRAY MUCOUS MEM ×2 (10:57→20:34)
--- NOTE | 2023-03-16 11:34 | PM.CNGS ---
Assessment and Plan Assessment and plan (1) Small bowel obstruction: Code(s): K56.609 - Unspecified intestinal obstruction, unspecified as to partial versus complete obstruction Status: Acute Assessment and Plan: Patient presents with a recurrent small bowel obstruction. I reviewed the CT and discussed the findings with her. She had a small bowel obstruction about 11 months ago which was treated conservatively. Will continue NG tube decompression and bowel rest at this time. Patient is already passing flatus, therefore obstruction may be showing signs of resolution. Will get a Gastrografin small-bowel follow-through tomorrow morning. Discussed with patient possibility of requiring surgical intervention if complete bowel obstruction is identified on the small-bowel follow-through tomorrow. (2) MAHSA (iron deficiency anemia): Qualifiers: Iron deficiency anemia type: unspecified iron deficiency Qualified Code(s): D50.9 - Iron deficiency anemia, unspecified Code(s): D50.9 - Iron deficiency anemia, unspecified Status: Acute History of Present Illness Consult details Consult date: 03/16/23 Reason for consult: other (Small-bowel obstruction) Requesting physician: Tameka Coronel MD Narrative: This is a 63-year-old woman who I am asked to see for a small-bowel obstruction. She presented to the emergency department yesterday with left-sided abdominal pain with nausea. She does not recall anything that she ate that could have caused this. She had an episode similar to this about 2 weeks ago and experienced vomiting. In the emergency department she was found to have evidence of a small-bowel obstruction. NG tube was placed and she was admitted to the hospital for further treatment. Since being admitted she states she is passing flatus, but has not had a BM. She is still having some left-sided abdominal pain. She has a history of small-bowel obstructions and was last hospitalized 11 months ago. This bowel obstruction resolved with NG tube decompression and bowel rest. She states that she has had a few minor episodes at home but has not had symptoms for long enough to require coming back to the emergency department. The patient has had a right oophorectomy, vaginal hysterectomy, and laparoscopic cholecystectomy in the past. Review of Systems Review of Systems: All systems reviewed & are unremarkable except as noted in HPI and below Constitutional: Constitutional: Denies chills and Denies fever(s) Eyes: Eyes: Denies change in vision ENT: Denies hearing loss, Denies neck pain and Denies sore throat Cardiovascular: Cardiovascular: Denies chest pain and Denies dyspnea Respiratory: Respiratory: Denies cough, Denies dyspnea and Denies wheezing Genitourinary: Genitourinary: Denies hematuria and Denies dysuria Musculoskeletal: Musculoskeletal: Denies arthralgias, Denies joint swelling and Denies neck pain Allergic/Immunologic: Allergic/Immunologic: Denies wheezing PMFSH Past Medical History Medical History Abdominal pain Chronic back pain Sees pain management for back pain Chronic, continuous use of opioids takes 5/325 norco tablets 3 times/day Fatty liver Hypertension Irritable bowel syndrome with diarrhea Mixed hyperlipidemia Osteopenia Seborrheic keratosis Surgical History Surgical History History of cervical spinal surgery (2000) History of endoscopic retrograde cholangiopancreatography (2004) History of eye surgery History of hysterectomy with oophorectomy History of laparoscopic cholecystectomy (2004) History of tonsillectomy (1962) History of tubal ligation (1991) Family History Family History Father Hypertension Family history of kidney disease Family history of coronary artery disease Family history o
--- NOTE | 2023-03-16 12:48 | PM.IMPN ---
Progress Note: A&P Assessment and Plan (1) Small bowel obstruction: Code(s): K56.609 - Unspecified intestinal obstruction, unspecified as to partial versus complete obstruction Status: Acute Assessment and Plan: CT abd/pelvis: small bowel obstruction with transition point in the lower abdomen. general surgery consulted - medical management at this time. Will get a Gastrografin small-bowel follow-through tomorrow morning. NPO with ice chips, IVF NG in place, verfied with KUB and XR continue pain management and antiemetics Plan Home Meds/Chronic Conditions - held home Flexeril, Benadryl, docusate, and Zofran ODT - OTC/supplements: continued calcium/D3, vitamin D, multi, vitamin E, PreserVision - chronic back pain: Celebrex, gabapentin, [place] continued - allergies: Flonase and loratadine continued - HTN: continued losartan/HCTZ. monitor. Code Status: Full Code Subjective Date/time seen: 03/16/23 12:48 Interval history: Patient is comfortable this am, reports she is passing flatus and abdominal pain improved with NG Tube and pain medication. Will continue with bowel rest, await further recommendations from general surgery after Gastrografin small-bowel follow-through tomorrow morning. Review of Systems Review of Systems: All systems reviewed & are unremarkable except as noted in HPI and below Exam Const: General: comfortable and no acute distress HENMT: Face/Nose/Sinus: Normal nares present Mouth: Yes moist mucous membranes Eyes: General: appearance normal, both eyes and all related structures Pupils: Equal, round and reactive pupils present EOM: EOMs intact bilaterally Resp: Effort & Inspection: normal respiratory effort Auscultation: clear to auscultation bilaterally Cardio: Rhythm: regular rhythm GI: Other: Normal bowel sounds in RUQ and RLQ. Hypoactive BS in LUQ and LLQ. no current tenderness or distention. Skin: General skin exam: normal color and no rashes or lesions noted Wounds: no wounds Neuro: Cranial nerves: Yes Equal, round and reactive pupils present Speech: normal speech Sensory Exam: normal sensation Other: A/Ox4 Extrem: General: normal to inspection Psych: Mental Status: mental status grossly normal Affect: normal affect Other: good insight and judgement Objective Data Vital Signs Vital Signs: Vital Signs - 24 hr 03/15/23 12:53 03/15/23 13:10 03/15/23 13:15 Temperature 98.4 F Pulse Rate 100 87 88 Respiratory Rate 20 18 13 Blood Pressure 136/71 Pulse Oximetry 100 99 98 Oxygen Delivery Room Air 03/15/23 13:30 03/15/23 14:00 03/15/23 14:31 Temperature 97.8 F Pulse Rate 91 80 88 Respiratory Rate 15 15 16 Blood Pressure 162/78 H 156/77 H Pulse Oximetry 98 98 99 Oxygen Delivery 03/15/23 15:33 03/15/23 15:49 03/15/23 16:01 Temperature 98.2 F 98.0 F Pulse Rate 92 99 94 Respiratory Rate 16 16 16 Blood Pressure 152/80 H 154/90 H 150/79 H Pulse Oximetry 96 100 100 Oxygen Delivery 03/15/23 16:31 03/15/23 17:01 03/15/23 17:16 Temperature 97.9 F Pulse Rate 92 97 90 Respiratory Rate 13 16 15 Blood Pressure 142/70 H 141/75 H 132/69 Pulse Oximetry 97 98 99 Oxygen Delivery 03/15/23 17:31 03/15/23 17:45 03/15/23 17:46 Temperature Pulse Rate 99 98 97 Respiratory Rate 18 12 10 L Blood Pressure 137/70 150/80 H Pulse Oximetry 97 98 98 Oxygen Delivery 03/16/23 00:07 03/16/23 06:00 03/16/23 08:00 Temperature 97.6 F 97.5 F L Pulse Rate 82 92 Respiratory Rate 18 17 Blood Pressure 142/78 H 158/86 H Pulse Oximetry 99 97 97 Oxygen Delivery Room Air Intake/Output Intake/Output: Intake & Output 03/13/23 03/14/23 03/15/23 03/16/23 23:59 23:59 23:59 23:59 Intake Total 1000 300 Output Total 200 500 Balance 800 -200 Meds/Results Medications: Active Medications Generic Name Dose Route Start Last Admin Trade Name Freq PRN Reason Stop Dose Admin Aceta
[2023-03-16 14:00] VITALS: BP 146/80; PULSE 90; RESP 18; TEMP 36.1; O2SAT 100
[2023-03-16] MEDS: cycloSPORINE 0.4 ML OPHTH SOLUTION 1 DROP EACH EYE (20:33)
[2023-03-16 21:55] VITALS: BP 160/87; PULSE 97; RESP 16; TEMP 36.3; O2SAT 100
[2023-03-17 06:00] VITALS: BP 157/83; PULSE 93; RESP 16; TEMP 36.3; O2SAT 100
[2023-03-17 06:01] LABS: Hematocrit 36.5 % (37.0-47.0); Hemoglobin 11.8 g/dL (12.0-15.0); Mean Corpuscular HGB Conc 32.3 g/dl (32-36); Mean Corpuscular Hemoglobin 30.2 pg (26-34); Mean Corpuscular Volume 93.4 fl (80-100); Mean Platelet Volume 9.7 fl (7.4-10.4); Platelet Count Result 335 k/mm3 (150-375); Red Blood Count 3.91 M/mm3 (4.2-5.4); Red Cell Distribution Width 13.3 % (11.5-14.5); White Blood Count 9.7 K/mm3 (4.5-10.0)
[2023-03-17 06:07] LABS: Anion Gap 8 mmol/L (8-16); Blood Urea Nitrogen 18 mg/dL (7-17); Calcium 8.3 mg/dL (8.4-10.2); Carbon Dioxide 24 mmol/L (22-30); Chloride 108 mmol/L (98-107); Estimated CRCL calculation 74 ml/min; Estimated Glomerular Filt Rate > 60; Glucose 66 mg/dL (65-110); Potassium 3.3 mmol/L (3.4-5.0); Sodium 140 mmol/L (137-145)
[2023-03-17] MEDS: fentaNYL CITRATE INJ (*CRX) 100 MCG/2 ML VIAL 25 MCG IV PUSH (09:22)
--- NOTE | 2023-03-17 11:01 | PM.PNGS ---
Progress Note: A&P Assessment and Plan (1) Small bowel obstruction: Code(s): K56.609 - Unspecified intestinal obstruction, unspecified as to partial versus complete obstruction Status: Acute Assessment and Plan: SBFT showed normal transit time to the colon in < 15 minutes. Bowels are moving. No evidence of a high-grade small bowel obstruction. Still feeling nauseous and had high NG output overnight. Will clamp her NG tube and plan to remove it if she tolerates a clamping trial. May start clear liquids if NG is removed. Replace her potassium with IV KCL 40 meq, repeat labs in am. Plan I have discussed the patient's case and plan of care with Dr. Rodrigez. Subjective Subjective Date/Time Seen: 03/17/23 11:01 Interval history: This is a 63-year-old female who presented with a small bowel obstruction. She had an NG placed. SBFT this morning ordered and was normal. Chart reviewed and patient seen this am. She has her NG clamped since the SBFT was started this morning. She is feeling nauseous but has not vomited. She has had multiple liquid BMs since the contrast study. No abdominal pain or bloating. Review of Systems Review of Systems: All systems reviewed & are unremarkable except as noted in HPI and below Exam Const: General: no acute distress and awake Orientation/consciousness: patient oriented x3 GI: Inspection: non-distended GI Palp: Yes Soft to palpation, Yes Tenderness to palpation present (GI) (very mild tenderness in the LLQ, reportedly improved), No Guarding due to palpation present (GI) and No Rebound tenderness present Auscultation: normal bowel sounds Objective Data Vital Signs Vital Signs: Vital Signs - 24 hr 03/16/23 14:00 03/16/23 21:55 03/16/23 20:00 Temperature 97.0 F L 97.3 F L Pulse Rate 90 97 Respiratory Rate 18 16 Blood Pressure 146/80 H 160/87 H Pulse Oximetry 100 100 Oxygen Delivery Room Air 03/17/23 06:00 Temperature 97.4 F L Pulse Rate 93 Respiratory Rate 16 Blood Pressure 157/83 H Pulse Oximetry 100 Oxygen Delivery Intake/Output Intake/Output: Intake & Output 03/14/23 03/15/23 03/16/23 03/17/23 23:59 23:59 23:59 23:59 Intake Total 1000 1300 Output Total 200 1700 850 Balance 800 -400 -850 Meds/Results Medications: Active Medications Generic Name Dose Route Start Last Admin Trade Name Freq PRN Reason Stop Dose Admin Acetaminophen 650 mg 03/15/23 18:51 Acetaminophen 325 Mg Tablet PO Q4H PRN Mild Pain (1-3) or Fever Hydrocodone Bitart/Acetaminophen 1 tab 03/15/23 19:15 03/16/23 15:55 Hydrocodone/Acetaminophen (*Crx) 5-325 Mg Tablet PO Not Given TID [facility] Calcium Carbonate 500 mg 03/16/23 09:00 03/16/23 15:55 Calcium/Vitamin D 500 Mg Tablet PO Not Given BID [place] Celecoxib 200 mg 03/16/23 09:00 03/16/23 11:31 Celecoxib 200 Mg Capsule PO Not Given DAILY [facility] Cyclosporine 1 drop 03/15/23 21:00 03/16/23 20:33 Cyclosporine 0.4 Ml Ophth Solution EACH EYE 1 drop Q12H [place] Administration Fentanyl Citrate 25 mcg 03/15/23 18:51 03/17/23 09:22 Fentanyl Citrate Inj (*Crx) 100 Mcg/2 Ml Vial IV PUSH 25 mcg Q4H PRN Administration Pain Rated 7-10 Ferrous Sulfate 325 mg 03/16/23 09:00 03/16/23 15:55 Ferrous Sulfate [address] PO Not Given BID [facility] Gabapentin 100 mg 03/16/23 09:00 03/16/23 11:31 Gabapentin 100 Mg Capsule PO Not Given DAILY [facility] Hydrochlorothiazide 12.5 mg 03/16/23 09:00 03/16/23 11:32 Hydrochlorothiazide 12.5 Mg Capsule PO Not Given QAM [facility] Sodium Chloride 1,000 mls @ 100 mls/hr 03/16/23 09:10 03/16/23 20:38 Normal Saline Iv IV CONT 100 mls/hr .Q10H [place] Administration Potassium Chloride 40 meq/ 520 mls @ 130 mls/hr 03/17/23 11:00 Sodium Chloride IVPB 03/17/23 14:59 ONCE ONE Ipratropium [place] 1 spray 03/16/23 09:00 03/16/23 14:57 Ipratropium Nasal [place] 0.03% 15 Ml Bottle NASAL Not Given
[2023-03-17] MEDS: POTASSIUM CHLORIDE INJ 40 MEQ in SODIUM CHLORIDE 0.9% IV 500 ML 130 MEQ IVPB (13:09)
[2023-03-17] MEDS: SODIUM CHLORIDE 0.9% IV 1,000 ML 100 ML IV CONT (13:09)
[2023-03-17] MEDS: HYDROcodone/acetaminophen (*CRX) 5-325 MG TABLET 1 TAB PO ×2 (13:10→16:43)
[2023-03-17] MEDS: IPRATROPIUM NASAL SPRAY 0.03% 15 ML BOTTLE 1 SPRAY NASAL (13:10)
[2023-03-17] MEDS: cycloSPORINE 0.4 ML OPHTH SOLUTION 1 DROP EACH EYE ×2 (13:10→20:28)
[2023-03-17 14:00] VITALS: BP 149/76; PULSE 106; RESP 18; TEMP 36.2; O2SAT 100
--- NOTE | 2023-03-17 15:28 | PM.IMPN ---
Progress Note: A&P Assessment and Plan (1) Small bowel obstruction: Code(s): K56.609 - Unspecified intestinal obstruction, unspecified as to partial versus complete obstruction Status: Acute Assessment and Plan: CT abd/pelvis: small bowel obstruction with transition point in the lower abdomen. general surgery consulted - medical management at this time. Gastrografin small-bowel follow-through showed resolution of SBO. tolerating clears, advance as tolerated NG removed today Plan Home Meds/Chronic Conditions - held home Flexeril, Benadryl, docusate, and Zofran ODT - OTC/supplements: continued calcium/D3, vitamin D, multi, vitamin E, PreserVision - chronic back pain: Celebrex, gabapentin, [place] continued - allergies: Flonase and loratadine continued - HTN: continued losartan/HCTZ. monitor. Code Status: Full Code Subjective Date/time seen: 03/17/23 15:28 Interval history: Patient is doing well, reports she is passing flatus and having loose BMs. Gastrografin small-bowel follow-through showed her SBO had resolved. General surgery following - NG tub removed, tolerating clears and will advance as tolerated. Will plan for d/c when she is tolerating diet and cleared by surgery. Review of Systems Review of Systems: All systems reviewed & are unremarkable except as noted in HPI and below Exam Const: General: comfortable and no acute distress HENMT: Face/Nose/Sinus: Normal nares present Mouth: Yes moist mucous membranes Eyes: General: appearance normal, both eyes and all related structures Sclera: sclerae normal Pupils: Equal, round and reactive pupils present EOM: EOMs intact bilaterally Resp: Effort & Inspection: normal respiratory effort Auscultation: clear to auscultation bilaterally Cardio: Rate: tachycardic Rhythm: regular rhythm Other: S1-S2 present without murmur, rub, ectopy GI: Other: Normal bowel sounds in RUQ and RLQ. BS present in LUQ and LLQ. no current tenderness or distention. Skin: General skin exam: normal color and no rashes or lesions noted Wounds: no wounds Neuro: Cranial nerves: Yes Equal, round and reactive pupils present Speech: normal speech Motor exam (neuro): 5/5 motor strength present throughout Sensory Exam: normal sensation Other: A/Ox4 Extrem: General: normal to inspection Psych: Mental Status: mental status grossly normal Affect: normal affect Other: good insight and judgement Objective Data Vital Signs Vital Signs: Vital Signs - 24 hr 03/16/23 21:55 03/16/23 20:00 03/17/23 06:00 Temperature 97.3 F L 97.4 F L Pulse Rate 97 93 Respiratory Rate 16 16 Blood Pressure 160/87 H 157/83 H Pulse Oximetry 100 100 Oxygen Delivery Room Air 03/17/23 14:00 Temperature 97.1 F L Pulse Rate 106 H Respiratory Rate 18 Blood Pressure 149/76 H Pulse Oximetry 100 Oxygen Delivery Intake/Output Intake/Output: Intake & Output 03/14/23 03/15/23 03/16/23 03/17/23 23:59 23:59 23:59 23:59 Intake Total 1000 1300 1000 Output Total 200 1700 850 Balance 800 -400 150 Meds/Results Medications: Active Medications Generic Name Dose Route Start Last Admin Trade Name Freq PRN Reason Stop Dose Admin Acetaminophen 650 mg 03/15/23 18:51 Acetaminophen 325 Mg Tablet PO Q4H PRN Mild Pain (1-3) or Fever Hydrocodone Bitart/Acetaminophen 1 tab 03/15/23 19:15 03/17/23 13:10 Hydrocodone/Acetaminophen (*Crx) 5-325 Mg Tablet PO 1 tab TID [place] Administration Calcium Carbonate 500 mg 03/16/23 09:00 03/17/23 12:50 Calcium/Vitamin D 500 Mg Tablet PO Not Given BID [place] Celecoxib 200 mg 03/16/23 09:00 03/17/23 12:50 Celecoxib 200 Mg Capsule PO Not Given DAILY [place] Cyclosporine 1 drop 03/15/23 21:00 03/17/23 13:10 Cyclosporine 0.4 Ml Ophth Solution EACH EYE 1 drop Q12H [place] Administration Fentanyl Citrate 25 mcg 03/15/23 18:51 03/17/23 09:22 Lui
[2023-03-17] MEDS: OPTI-GEN TAB 1 TABLET PO (16:43)
[2023-03-17] MEDS: FERROUS SULFATE 325 MG TABLET DR PO (16:43)
[2023-03-17] MEDS: CHOLECALCIFEROL 1,000 UNITS TABLET 2000 UNITS PO (20:28)
[2023-03-17 22:00] VITALS: BP 171/73; PULSE 91; RESP 16; TEMP 36.6; O2SAT 100
[2023-03-18 06:00] VITALS: BP 163/75; PULSE 86; RESP 16; TEMP 36.3; O2SAT 100
[2023-03-18 07:26] LABS: Hematocrit 33.9 % (37.0-47.0); Hemoglobin 10.9 g/dL (12.0-15.0); Mean Corpuscular HGB Conc 32.2 g/dl (32-36); Mean Corpuscular Hemoglobin 30.4 pg (26-34); Mean Corpuscular Volume 94.7 fl (80-100); Mean Platelet Volume 9.8 fl (7.4-10.4); Platelet Count Result 334 k/mm3 (150-375); Red Blood Count 3.58 M/mm3 (4.2-5.4); Red Cell Distribution Width 13.4 % (11.5-14.5); White Blood Count 8.9 K/mm3 (4.5-10.0)
[2023-03-18 07:42] LABS: Anion Gap 5 mmol/L (8-16); Blood Urea Nitrogen 11 mg/dL (7-17); Calcium 8.6 mg/dL (8.4-10.2); Carbon Dioxide 25 mmol/L (22-30); Chloride 108 mmol/L (98-107); Estimated CRCL calculation 74 ml/min; Estimated Glomerular Filt Rate > 60; Glucose 90 mg/dL (65-110); Magnesium 1.9 mg/dL (1.6-2.3); Potassium 3.4 mmol/L (3.4-5.0); Sodium 138 mmol/L (137-145)
[2023-03-18] MEDS: LOSARTAN POTASSIUM 50 MG TABLET PO (09:50)
[2023-03-18] MEDS: CELECOXIB 200 MG CAPSULE PO (09:50)
[2023-03-18] MEDS: VITAMIN E 100 UNIT CAPSULE 200 UNIT PO (09:50)
[2023-03-18] MEDS: LORATADINE 10 MG TABLET PO (09:50)
[2023-03-18] MEDS: OPTI-GEN TAB 1 TABLET PO (09:50)
[2023-03-18] MEDS: MULTIVITAMINS /C LUTEIN (CENTRUM SILVER) TABLET *BKC 1 TAB PO (09:50)
[2023-03-18] MEDS: GABAPENTIN 100 MG CAPSULE PO (09:50)
[2023-03-18] MEDS: HYDROcodone/acetaminophen (*CRX) 5-325 MG TABLET 1 TAB PO ×2 (09:50→13:26)
[2023-03-18] MEDS: hydroCHLOROthiazide 12.5 MG CAPSULE PO (09:51)
[2023-03-18] MEDS: FERROUS SULFATE 325 MG TABLET DR PO (09:51)
[2023-03-18] MEDS: PANTOPRAZOLE 40 MG TABLET PO (09:51)
[2023-03-18] MEDS: cycloSPORINE 0.4 ML OPHTH SOLUTION 1 DROP EACH EYE (09:52)
[2023-03-18] MEDS: IPRATROPIUM NASAL SPRAY 0.03% 15 ML BOTTLE 1 SPRAY NASAL (09:52)
[2023-03-18 14:00] VITALS: BP 154/76; PULSE 85; RESP 16; TEMP 36.7; O2SAT 98
--- NOTE | 2023-03-18 14:25 | PM.DS ---
DS: Admitting Diagnosis Discharge Date 03/18/23 Admitting Diagnosis SBO DS: Discharge Diagnosis Discharge Diagnosis (1) Small bowel obstruction: Code(s): K56.609 - Unspecified intestinal obstruction, unspecified as to partial versus complete obstruction Status: Acute Assessment and Plan: CT abd/pelvis: small bowel obstruction with transition point in the lower abdomen. general surgery consulted and okay for d/c today Gastrografin small-bowel follow-through showed resolution of SBO. tolerating regular diet NG removed yesterday DS: Summary Hospital Course Hospital Course: Patient is a 63 y/o F admitted with abdominal pain and nausea with PMH of SBO, chronic back pain HTN, IBS, and HLD. Patient presented here with left-sided abdominal pain accompanied by nausea without vomiting. Described pain as similar to her previous small-bowel obstruction. She denied any abnormal colored stools, shortness of breath, constipation, fevers, or chills. Previous SBO in March of this year was managed with bowel rest and NG tube. Recently had anemia workup with EGD and colonoscopy, going to follow with [facility] and currently on iron supplement. Patient is now doing well, reports she is passing flatus and having BMs. Gastrografin small-bowel follow-through showed her SBO had resolved. General surgery following - NG tub removed, tolerating regular diet and cleared for d/c today. Status at Discharge Functional status at discharge: independent ambulation Overall status at discharge: patient is back to baseline Time Spent with Patient Time attestation: Total time spent providing and/or coordinating discharge services: Exam Const: General: comfortable and no acute distress HENMT: Face/Nose/Sinus: Normal nares present Mouth: Yes moist mucous membranes Eyes: General: appearance normal, both eyes and all related structures Sclera: sclerae normal Pupils: Equal, round and reactive pupils present EOM: EOMs intact bilaterally Resp: Effort & Inspection: normal respiratory effort Auscultation: clear to auscultation bilaterally Cardio: Rate: tachycardic Rhythm: regular rhythm Other: S1-S2 present without murmur, rub, ectopy GI: GI Palp: Yes Soft to palpation Auscultation: normal bowel sounds Other: Normal bowel sounds in RUQ and RLQ. BS present in LUQ and LLQ. no current tenderness or distention. Skin: General skin exam: normal color and no rashes or lesions noted Wounds: no wounds Neuro: Cranial nerves: Yes Equal, round and reactive pupils present Speech: normal speech Motor exam (neuro): 5/5 motor strength present throughout Sensory Exam: normal sensation Other: A/Ox4 Extrem: General: normal to inspection Psych: Mental Status: mental status grossly normal Affect: normal affect Other: good insight and judgement DS: Data Data Completed and Pending Labs on day of discharge: Labs from last 24 hours 03/18/23 07:01 WBC 8.9 RBC 3.58 L Hgb 10.9 L Hct 33.9 L MCV 94.7 MCH 30.4 MCHC 32.2 RDW 13.4 Plt Count 334 MPV 9.8 Sodium 138 Potassium 3.4 Chloride 108 H Carbon Dioxide 25 Anion Gap 5 L BUN 11 D Creatinine 0.50 L Estim Creat Clear Calc 74 Estimated GFR > 60 Glucose 90 Calcium 8.6 Magnesium 1.9 Discharge Plan Discharge Attending physician on discharge: Nino Ruiz Consulting providers: Cortney Rodriguez Discharging Clinician: Jacqueline Reddy Anticipated Discharge Date/Time: 03/18/23 13:05 Patient Disposition: Home, Self-Care Activity: as tolerated Diet: heart healthy Discharge Instructions: Eat small amounts of food several times a day. Do not eat 3 large meals. You should: Space out your small meals. Add new foods back into your diet slowly. Take sips of clear liquids throughout the day. Some foods may cause gas, loose stools, or constipation as you recover. Avoid foods that cause these problems. If you b
== END 2023-03-18 15:20 | disposition home or self-care (01) | DRG 390 ==
LOC: ANHED 17:41 → ANH3MEDSUR 03-16 10:32
PROVIDERS: Nurse Practitioner Family; Student in an Organized Health Care Education/Training Program; Admitting Provider Student in an Organized Health Care Education/Training Program; Emergency Provider Emergency Medicine; PCP Family Medicine; Visit Provider Nurse Practitioner
DX: K56.609 Unspecified intestinal obstruction, unspecified as to partial versus complete obstruction (principal); I10 Essential (primary) hypertension; D50.9 Iron deficiency anemia, unspecified; K58.0 Irritable bowel syndrome with diarrhea; K76.0 Fatty (change of) liver, not elsewhere classified; E78.2 Mixed hyperlipidemia; M85.80 Other specified disorders of bone density and structure, unspecified site; Z90.49 Acquired absence of other specified parts of digestive tract; Z98.1 Arthrodesis status; Z90.710 Acquired absence of both cervix and uterus; Z90.722 Acquired absence of ovaries, bilateral; G89.29 Other chronic pain; M54.9 Dorsalgia, unspecified
CPT/HCPCS: 36415; 74177; 74250; 80048; 80053; 81003; 82607; 82728; 82746; 83540; 83550; 83605; 83735; 84238; 85025; 85027; 85610; 85730; 96361; 96374; 96375; 99285; A9270; J2405; J3010; J3480; J7030; J7040; J7120; Q9967

== ENCOUNTER 2023-04-29 08:22 | Emergency (ER) | payer MEDICARE, SELFPAY ==
--- NOTE | ~2023-04-29 | CT_ITS ---
EXAMINATION: CT abdomen pelvis w con DATE: 04/29/2023 11:06 INDICATION: Left abdominal pain. TECHNIQUE: Computed tomography (CT) of the abdomen and pelvis was performed with 100 mL Omnipaque 350 intravenous contrast. Automated exposure control and iterative reconstruction technique were employe d. The dose-length product was 589.61 mGy-cm. COMPARISON: CT abdomen and pelvis 03/15/2023 FINDINGS: The visualized portions of the lung bases demonstrate mild atelectasis. No pleural effusion . The heart size is normal. There are coronary artery calcifications. No pericardial effusion. The li sheila is normal. There are changes of cholecystectomy. The spleen, pancreas, adrenal glands, and right kidney are normal. There is an 8 mm cyst in left kidney. There are no dilated loops of bowel. There i s desiccated stool in the distal small bowel suggesting slow transit. The appendix is normal. There i s a small volume of pelvic ascites. There are no pathologically enlarged lymph nodes. There is severe lumbar and thoracic spondylosis. IMPRESSION: 1. Desiccated stool in the distal small bowel suggesting slow transit. 2. Small volume of ascites. Reviewed, dictated and finalized at location A. [employer]
[2023-04-29 08:23] VITALS: BP 142/79; PULSE 110; RESP 14; TEMP 37; O2SAT 98
[2023-04-29 09:42] LABS: Basophils Absolute Auto 0.1 K/mm3 (0.0-0.1); Basophils Percent Auto 0.6 % (0.2-1.2); Eosinophils Absolute Auto 0.1 K/mm3 (0-0.3); Eosinophils Percent Auto 0.6 % (0-4.4); Hematocrit 40.5 % (37.0-47.0); Immature Granulocyte Absolute 0.02 K/mm3 (0.00-0.031); Immature Granulocyte Percent A 0.2 % (0-0.5); Lymphocytes Absolute Auto 1.77 K/mm3 (0.9-3.2); Lymphocytes Percent Auto 19.8 % (18.3-44.2); Mean Corpuscular HGB Conc 32.1 g/dl (32-36); Mean Corpuscular Hemoglobin 30.1 pg (26-34); Mean Corpuscular Volume 93.8 fl (80-100); Mean Platelet Volume 9.8 fl (7.4-10.4); Monocytes Absolute Auto 0.6 K/mm3 (0.1-0.6); Monocytes Percent Auto 6.1 % (2.6-8.5); Neutrophils Absolute Auto 6.5 K/mm3 (1.3-6.7); Neutrophils Percent Auto 72.7 % (45.5-73.1); Platelet Count Result 377 k/mm3 (150-375); Red Blood Count 4.32 M/mm3 (4.2-5.4); Red Cell Distribution Width 14.2 % (11.5-14.5)
[2023-04-29 09:51] LABS: Alanine Aminotransferase 23 U/L (6-35); Albumin Level 3.9 g/dL (3.5-5.1); Alkaline Phosphatase 84 U/L (38-126); Anion Gap 7 mmol/L (8-16); Aspartate Amino Transferase 25 U/L (14-36); Bilirubin,Total 0.3 mg/dL (0.2-1.3); Blood Urea Nitrogen 19 mg/dL (7-17); Calcium 9.4 mg/dL (8.4-10.2); Carbon Dioxide 27 mmol/L (22-30); Chloride 104 mmol/L (98-107); Estimated CRCL calculation 74 ml/min; Estimated Glomerular Filt Rate > 60; Glucose 132 mg/dL (65-110); Lipase 92 U/L (23-300); Sodium 138 mmol/L (137-145)
[2023-04-29 10:10] LABS: Appearance Urine Clear (Clear); Bilirubin Urine Negative (Negative); Blood Urine Negative (Negative); Color Urine Yellow (Yellow); Glucose Urine UA Negative (Negative); Ketones Urine Negative (Negative); Leukocyte Esterase Ur Negative LEU/UL (Negative); Nitrate Urine Negative (Negative); Protein Urine Negative (Negative); Specific Grav Ur 1.009 (1.001-1.035); Urobilinogen Urine 0.2 mg/dL (<2.0)
[2023-04-29 10:11] LABS: Add Urine Microscopic? NO
[2023-04-29 10:24] VITALS: BP 134/70; PULSE 91; RESP 18; O2SAT 97
[2023-04-29] MEDS: SODIUM CHLORIDE 0.9% IV 1,000 ML 999 ML IV CONT (10:31)
--- NOTE | 2023-04-29 10:44 | ED.ABDPAIN ---
HPI - Abdominal Pain General Chief Complaint: Abdominal Pain Stated Complaint: abd pain (PMH of SBO) Time Seen by Provider: 04/29/23 10:09 Source: patient Mode of arrival: ambulatory Limitations: no limitations History of Present Illness HPI narrative: patient is a 63-year-old female who presents to the ED with report of left-sided abdominal pain. Patient reports pain began last night and persisted into this morning. She did take hydrocodone prior to arrival and reports some improvement of pain currently. Pain feels similar to her previous small-bowel obstructions. She last had a SBO in February of last year. Treated conservatively with NG tube at that time. Reports history of previous abdominal surgeries with known adhesions. Patient reported having nausea last night and this morning, but states this is also improved currently. Denies vomiting. She has passed a small amount of gas today and had a small bowel movement this morning. Denies rectal bleeding or melena. Denies fevers. Denies urinary complaints. Related Data Home Medications Medication Instructions Recorded Confirmed cholecalciferol (vitamin D3) 50 50 mcg PO HS 07/02/20 04/29/23 mcg (2,000 unit) capsule hydrocodone 5 mg-acetaminophen 325 1 tablet PO TID 04/19/22 04/29/23 mg tablet calcium carbonate 600 mg-vitamin 1 cap PO BID 05/27/22 04/29/23 D3 12.5 mcg (500 unit) capsule (Calcium 600 with Vitamin D3) ferrous sulfate 325 mg (65 mg 325 mg PO BID 08/26/22 04/29/23 iron) tablet vitamin E 200 unit capsule 200 unit PO DAILY 10/05/22 04/29/23 gabapentin 100 mg capsule 100 mg PO DAILY 02/10/23 03/15/23 Allergies Allergy/AdvReac Type Severity Reaction Status Date / Time buprenorphine [From [facility]] AdvReac Intermediate Nausea and Verified 04/29/23 08:26 Vomiting codeine AdvReac Unknown Nausea and Verified 04/29/23 08:26 Vomiting morphine AdvReac Unknown Nausea and Verified 04/29/23 08:26 Vomiting Review of Systems Review of Systems: CONSTITUTIONAL: Denies fever, chills, or sweats. CARDIOVASCULAR: Denies chest pain. RESPIRATORY: Denies dyspnea. GASTROINTESTINAL: See HPI. GENITOURINARY: Denies dysuria or hematuria. MUSCULOSKELETAL: Denies back pain, extremity pain, myalgia. All systems reviewed & are unremarkable except as noted in HPI and below PMFSH Past Medical History Medical History Abdominal pain Chronic back pain Sees pain management for back pain Chronic, continuous use of opioids takes 5/325 norco tablets 3 times/day Fatty liver Hypertension Irritable bowel syndrome with diarrhea Mixed hyperlipidemia Osteopenia Seborrheic keratosis Surgical History Surgical History History of cervical spinal surgery (2000) History of endoscopic retrograde cholangiopancreatography (2004) History of eye surgery History of hysterectomy with oophorectomy History of laparoscopic cholecystectomy (2004) History of tonsillectomy (1962) History of tubal ligation (1991) Family History Family History Father Hypertension Family history of kidney disease Family history of coronary artery disease Family history of congestive heart failure Mother Hypertension Family history of osteoarthritis Cerebrovascular accident Family history of atrial fibrillation Family history of congestive heart failure Social History Social History Social History: Surrogate medical decision maker: Ricardo Canales, son. Code status: Full code. Smoking packs per day: 2 Smoking cigarettes per day: 40.0 Smoking status: Former smoker Tobacco type: cigarettes Alcohol intake: never Drinks per week: 1 Alcohol use details: Social alcohol use in moderation. Substance use: never Substance u
[2023-04-29 10:46] VITALS: BP 142/82; O2SAT 99
[2023-04-29 11:00] LABS: Lactic Acid Reflex 1.2 mmol/L (0.7-2.0)
[2023-04-29 11:11] VITALS: BP 142/73; O2SAT 99
[2023-04-29 12:55] VITALS: BP 148/86; PULSE 99; RESP 18; O2SAT 98
[2023-04-29 13:34] VITALS: BP 133/80; PULSE 98; RESP 16; O2SAT 99
== END 2023-04-29 13:35 | disposition home or self-care (01) ==
PROVIDERS: Emergency Medicine; Emergency Provider Physician Assistant; PCP Family Medicine
DX: R10.9 Unspecified abdominal pain (principal); I10 Essential (primary) hypertension; E78.2 Mixed hyperlipidemia; K58.0 Irritable bowel syndrome with diarrhea; M85.80 Other specified disorders of bone density and structure, unspecified site; Z90.710 Acquired absence of both cervix and uterus; Z87.891 Personal history of nicotine dependence; R18.8 Other ascites; R93.3 Abnormal findings on diagnostic imaging of other parts of digestive tract
CPT/HCPCS: 36415; 74177; 80053; 81003; 83605; 83690; 85025; 96360; 96361; 99284; J7030; Q9967

== ENCOUNTER 2023-06-20 10:58 | Outpatient (CLI) | payer MEDICARE, SELFPAY ==
[2023-06-20 11:11] LABS: Basophils Absolute Auto 0.1 K/mm3 (0.0-0.1); Eosinophils Absolute Auto 0.2 K/mm3 (0-0.3); Hematocrit 36.4 % (37.0-47.0); Hemoglobin 12.1 g/dL (12.0-15.0); Immature Granulocyte Absolute 0.02 K/mm3 (0.00-0.031); Immature Granulocyte Percent A 0.2 % (0-0.5); Lymphocytes Absolute Auto 2.65 K/mm3 (0.9-3.2); Mean Corpuscular HGB Conc 33.2 g/dl (32-36); Mean Corpuscular Hemoglobin 30.9 pg (26-34); Mean Corpuscular Volume 92.9 fl (80-100); Mean Platelet Volume 9.3 fl (7.4-10.4); Monocytes Absolute Auto 0.6 K/mm3 (0.1-0.6); Monocytes Percent Auto 7.5 % (2.6-8.5); Neutrophils Absolute Auto 4.4 K/mm3 (1.3-6.7); Neutrophils Percent Auto 55.3 % (45.5-73.1); Platelet Count Result 358 k/mm3 (150-375); Red Blood Count 3.92 M/mm3 (4.2-5.4); Red Cell Distribution Width 13.7 % (11.5-14.5)
[2023-06-20 19:26] LABS: Alanine Aminotransferase 21 U/L (6-35); Albumin Level 3.7 g/dL (3.5-5.1); Alkaline Phosphatase 81 U/L (38-126); Anion Gap 1 mmol/L (8-16); Aspartate Amino Transferase 22 U/L (14-36); Bilirubin,Total 0.3 mg/dL (0.2-1.3); Blood Urea Nitrogen 15 mg/dL (7-17); Calcium 9.2 mg/dL (8.4-10.2); Carbon Dioxide 28 mmol/L (22-30); Chloride 107 mmol/L (98-107); Estimated Glomerular Filt Rate > 60; Glucose 82 mg/dL (65-110); Sodium 136 mmol/L (137-145)
[2023-06-20 19:38] LABS: Iron 93 ug/dL (37-170)
[2023-06-20 19:58] LABS: Percent Iron Saturation 30 % (20-50)
== END 2023-06-20 10:59 | disposition home or self-care (01) ==
LOC: ANHLAB 10:59
PROVIDERS: PCP Family Medicine; Visit Provider Internal Medicine Hematology & Oncology
DX: D64.9 Anemia, unspecified (principal)
CPT/HCPCS: 36415; 80053; 82728; 83540; 83550; 85025

== ENCOUNTER 2023-12-19 11:02 | Outpatient (CLI) | payer MEDICARE, SELFPAY ==
[2023-12-19 11:35] LABS: Basophils Absolute Auto 0.1 K/mm3 (0.0-0.1); Basophils Percent Auto 1.2 % (0.2-1.2); Eosinophils Absolute Auto 0.3 K/mm3 (0-0.3); Eosinophils Percent Auto 3.6 % (0-4.4); Hematocrit 39.4 % (37.0-47.0); Immature Granulocyte Absolute 0.02 K/mm3 (0.00-0.031); Immature Granulocyte Percent A 0.3 % (0-0.5); Lymphocytes Absolute Auto 2.28 K/mm3 (0.9-3.2); Lymphocytes Percent Auto 32.9 % (18.3-44.2); Mean Corpuscular Hemoglobin 31.3 pg (26-34); Mean Corpuscular Volume 94.9 fl (80-100); Mean Platelet Volume 10.1 fl (7.4-10.4); Monocytes Absolute Auto 0.5 K/mm3 (0.1-0.6); Monocytes Percent Auto 7.2 % (2.6-8.5); Neutrophils Absolute Auto 3.8 K/mm3 (1.3-6.7); Neutrophils Percent Auto 54.8 % (45.5-73.1); Platelet Count Result 350 k/mm3 (150-375); Red Blood Count 4.15 M/mm3 (4.2-5.4); Red Cell Distribution Width 13.2 % (11.5-14.5); White Blood Count 6.9 K/mm3 (4.5-10.0)
[2023-12-19 13:36] LABS: Iron 93 ug/dL (37-170)
[2023-12-19 13:39] LABS: Anion Gap 7 mmol/L (4-12); Blood Urea Nitrogen 16 mg/dL (7-17); Carbon Dioxide 27 mmol/L (22-30); Chloride 102 mmol/L (98-107); Estimated Glomerular Filt Rate > 60; Glucose 88 mg/dL (65-110); Potassium 3.9 mmol/L (3.4-5.0); Sodium 136 mmol/L (137-145)
[2023-12-19 13:49] LABS: Percent Iron Saturation 30 % (20-50)
== END 2023-12-19 11:03 | disposition home or self-care (01) ==
PROVIDERS: PCP Family Medicine; Visit Provider Internal Medicine Hematology & Oncology
DX: D64.9 Anemia, unspecified (principal)
CPT/HCPCS: 36415; 80048; 82728; 83540; 83550; 85025

== ENCOUNTER 2024-03-01 11:34 | Outpatient (CLI) | payer MEDICARE, SELFPAY ==
--- NOTE | ~2024-03-01 | MM_ITS ---
EXAMINATION: MM screening [facility] BI w kenneth HISTORY: Screening TECHNIQUE: Craniocaudal and mediolateral oblique 3-D tomosynthesis images were obtained and synthetic 2-D images were generated. CAD analysis was submitted and interpreted. COMPARISON: Comparison to multiple prior studies sequentially, with oldest reviewed study dated 01/27. BREAST PARENCHYMAL COMPOSITION: Not Dense. The breasts are almost entirely fatty. FINDINGS: There is no evidence of suspicious mass, calcification, or architectural distortion to sugg est malignancy in either breast. There has been no suspicious interval change. IMPRESSION: 1. No mammographic evidence of malignancy. 2. Recommend routine screening mammography in one year. BI-RADS Category 1: Negative Reviewed, dictated and finalized at location B. ER [employer]
== END 2024-03-01 11:35 | disposition home or self-care (01) ==
LOC: MICIMG 11:35
PROVIDERS: PCP Family Medicine; Visit Provider Student in an Organized Health Care Education/Training Program
DX: Z12.31 Encounter for screening mammogram for malignant neoplasm of breast (principal)
CPT/HCPCS: 77063; 77067

== ENCOUNTER 2024-06-12 10:30 | Outpatient (CLI) | payer MEDICARE, SELFPAY ==
--- NOTE | ~2024-06-12 | MR_ITS ---
MRI of the cervical spine Clinical History: Radiculopathy Technique: Axial T2-weighted and gradient images, and sagittal T1-weighted, T2-weighted, and STIR shahzad ges were acquired. Findings: No acute fracture or subluxation evident. There is anterior and interbody fusion from C3 to C5. There is probable fusion across the C5-C6 disc spaces well. There is severe degenerative disc na rrowing at C6-C7 and C2-C3. No suspicious bone marrow signal abnormality evident. At C2-C3, there is disc osteophyte complex results in moderate canal stenosis and probable mild delio ening the ventral cord. There is bilateral neural foraminal narrowing with bilateral facet arthropath y. At C3-C4, there is no disc bulge or herniation. No canal stenosis or cord compression. Neural foramin a are probably preserved. At C4-C5, there is no definite canal stenosis or cord compression. Neural foramina are probably prese rved. At C5-C6, there is no definite disc bulge or herniation. Neural foramina are probably preserved. No c anal stenosis or cord compression. At C6-C7, there is minimal disc osteophyte complex. There is mild canal stenosis without miles cord c ompression. There is probable bilateral neural foraminal narrowing. No abnormal signal seen in the spinal cord. Paravertebral soft tissues are otherwise unremarkable. Impression: Postoperative changes, as above. Advanced degenerative spondylosis at C2-C3, as detailed above. Moderate degenerative spondylosis at C 6-C7, as above. Reviewed, dictated and finalized at [facility]. Impression: Postoperative changes, as above. Advanced degenerative spondylosis at C2-C3, as detailed above. Moderate degener ative spondylosis at C6-C7, as above.
== END 2024-06-12 10:31 | disposition home or self-care (01) ==
LOC: GOSHIMG 10:31
PROVIDERS: Visit Provider Family Medicine
DX: M47.892 Other spondylosis, cervical region (principal); Z98.890 Other specified postprocedural states
CPT/HCPCS: 72141

== ENCOUNTER 2024-07-31 10:09 | Outpatient (CLI) | payer MEDICARE, SELFPAY ==
--- OUTSIDE RECORDS SUMMARY | 2024-07-31 11:01 | XMS_ITS | Clinical Summary ---
Author Organization [facility] Address [address] [address] Phone Care Team Providers Care Academic Success Coordinator Name Role Phone Matt Hutton MD Primary Care Provider [phone] Allergies Active Allergy Reactions Criticality Noted Date Comments Codeine Nausea,Vomiting 12/26/2017 Morphine Nausea,Vomiting 12/26/2017 Medications No known medications Family History Medical History Relation Name Comments Hypertension Father Cancer Maternal Grandfather lung Arthritis Mother Congestive Heart Failure Mother Hypertension Mother Relation Name Status Comments Father Maternal Grandfather Mother Alive Social History Tobacco Use Types Packs/Day Years Used Date Smoking Tobacco: Former Cigarettes Q uit: 12/26/1989 Smokeless Tobacco: Never Alcohol Use Standard Drinks/Week Comments Yes 0 (1 standard drink = 0.6 oz pur e alcohol) rarely Comments Unknown Sex and Gender Information Value Date Recorded Sex Assigned at Not on file Legal Sex Female 10:45 AM CDT Gender Identity Not on file Sexual Orientation Not on file Last Filed Vital Signs Vital Sign Reading Time Taken Comments Blood Pressure - - Pulse - - Temperature - - Respiratory Rate - - Oxygen Saturation - - Inhaled Oxygen Concentration - - Weight 65.8 kg (145 lb) 12/26/2017 9:00 AM CDT Height 156.2 cm (5' 1.5 ) 12/26/2017 9:00 AM CDT Body Mass Index 26.95 12/26/2017 9:00 AM CDT Plan of Treatment Health Maintenance Due Date Last Done Comments DEXA Bone Density 1960 Hepatitis C Virus (HCV) Screening 1960 TdaP Immunization 1960 Cologuard 2008 Immunochemical Fecal Occult Blood 2008 Mammogram 2008 Pneumococcal Immunization (5 0+ years) (1 of 1 - PCV) 2008 Zoster Immunization (1 of 2) 2008 Influenza Immunization (#1) 2023 SARS-COV-2 Immunization ( season) 2023 Colonoscopy 02/16/2028 02/15/2018 Colorectal Cancer Screening 02/16/2028 Respiratory Syncytial Virus (RSV) Immunization (Adult) (1 - 1-dose 75+ series) 2033 02/15/2018 Hepatitis B Immunization Aged Out No longer eligible based on patient's age to complete this topic Meningococcal Immunization (ACWY) Aged Out No longer eligible based on patient's age to complete this topic Rotavirus Immunization Aged Out No lo nger eligible based on patient's age to complete this topic Procedures Procedure Name Priority Date/Time Associated Diagnosis Comments COLONOSCOPY Routine 02/15/2018 from Last 3 Months or Most Recently Relevant to Health Maintenance Results * HM COLONOSCOPY (02/15/2018) us Anbíal Rudd DO PROCEDURE/MINOR SURGICAL ORDERA BLES Final Result from Last 3 Months or Most Recently Relevant to Health Maintenance Care Teams Academic Success Coordinator Relationship Specialty Start Date End Date Matt Hutton MD [address] [place] [address] PCP - General Family Medicine 12/28/17
--- OUTSIDE RECORDS SUMMARY | 2024-07-31 11:01 | XMS_ITS | Encounter Summary ---
Author Organization [facility] Address 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 CLERK Gender Identity Not on file Sexual Orientation Not on file documented as of this encounter Plan of Treatment Upcoming Encounters Date Type Department Care Team (Late st Contact Info) Description 08/24/2024 9:00 AM CDT Office Visit [facility] Oncology and Hematology - [place] [address] [facility] [address] [place] [address] Hugo Lyon MD [address] [facility] [address] [place] [address] 12/20/2024 11:00 AM CDT Office Visit [facility] Neurosurgery - Medical [place] [address] [facility] [address] [place] [address] Ace Wong MD [address] [place] [address] -x0 (Work) documented as of this encounter Visit Diagnoses Diagnosis Hypertropia- Primary documented in this encounter Care Teams Advertising Copywriter Relationship Specialty Start Date End Date Nadege Mina MD [facility] [address] [phone] PCP - General Family Practice 01/05/23 documented as of this encounter
--- OUTSIDE RECORDS SUMMARY | 2024-07-31 11:01 | XMS_ITS | Encounter Summary ---
Author Organization [facility] Address [address] [place] [address] Care Team Providers Care Girls Swimming Coach Name Role Phone Nadege Mina MD Primary Care Provider Encounter Details Date Type Department Care Team (Latest Contact Info) Description 07/05/2000 Outpatient Historical HIS PATIENT IN A BED Backer, Fredy Blackwell MD NO ADDRESS ON FILE Cervical spondylosis without myelopathy (Primary Dx) Social History Tobacco Use Types Packs/Day Years Used Date Smoking Tobacco: Never Assessed Comments Unknown Sex and Gender Information Value Date Recorded Sex Assigned at Not on file Legal Sex Female 4:22 AM REHAB TRAINER Gender Identity Not on file Sexual Orientation Not on file documented as of this encounter Plan of Treatment Upcoming Encounters Date Type Department Care Team (Late st Contact Info) Description 08/24/2024 9:00 AM CDT Office Visit [facility] Oncology and Hematology - [place] [address] [facility] [address] [place] [address] Hugo Lyon MD [address] [facility] [address] [place] [address] 12/20/2024 11:00 AM CDT Office Visit [facility] Neurosurgery - [facility] [address] [place] [address] Ace Wong MD [address] [facility] [address] [address]x0 (Work) documented as of this encounter Visit Diagnoses Diagnosis Cervical spondylosis without myelopathy- Primary documented in this encounter Care Teams Girls Swimming Coach Relationship Specialty Start Date End Date Nadege Mina MD [facility] [address] [address] PCP - General Family Practice 01/05/23 documented as of this encounter
--- OUTSIDE RECORDS SUMMARY | 2024-07-31 11:01 | XMS_ITS | Encounter Summary ---
Author Organization [facility] Address [address] [facility] Attn: [place] [address] Care Team Providers Care Electronics Parts Sales Representative Name Role Phone Nadege Mina MD Primary Care Provider Encounter Details Date Type Department Care Team (Late Contact Info) Description 07/24/1998 Outpatient Historical Social History Tobacco Use Types Packs/Day Years Used Date Smoking Tobacco: Never Assessed Comments Unknown Sex and Gender Information Value Date Recorded Sex Assigned at Not on file Legal Sex Female 4:22 AM SUBSCRIPTION CLERK Gender Identity Not on file Sexual Orientation Not on file documented as of this encounter Plan of Treatment Upcoming Encounters Date Type Department Care Team (Late st Contact Info) Description 08/24/2024 9:00 AM CDT Office Visit [facility] Oncology and Hematology - [place]am[place] [address] [facility] [address] [place] [address] Hugo Lyon MD [address] [facility] [address] [place] [address] 12/20/2024 11:00 AM CDT Office Visit [facility] Neurosurgery - Medical [place] [address] [place] [address] Ace Wong MD [address] [facility] [address] [address] -x0 (Work) documented as of this encounter Visit Diagnoses Not on filedocumented in this encounter Care Teams Electronics Parts Sales Representative Relationship Specialty Start Date End Date Nadege Mina MD [address] [facility] [address] [place] [address] PCP - General Family Practice 01/05/23 documented as of this encounter
--- OUTSIDE RECORDS SUMMARY | 2024-07-31 11:01 | XMS_ITS | Clinical Summary ---
Author Organization [facility] Address [address] [place] [address] Phone Care Team Providers Care Boat Builder And Repairer Name Role Phone Nadege Mina MD Primary Care Provider Allergies Active Allergy Reactions Criticality Noted Date Comments Codeine Nausea and Vomiting Low 12/07/2013 Morphine Nausea and Vomiting Low 12/07/2013 Medications loratadine (CLARITIN) 10 mg tablet Take 10 mg by mouth daily. Active multivitamin (DAILY-ARIELA) tablet Take 1 Tab by mouth daily. Active naloxone (NARCAN) 4 mg/spray Fountain, Non-Aerosol Administer 1 Fountain (4 mg) in nostril(s) as needed for opioid reversal. 2 Each 3 Active celecoxib (CeleBREX) 200 mg capsule Take 1 Capsule (200 mg) by mouth daily. 90 Capsule 1 03/08/2023 2:05 PM PINION AND WHEEL TRUER 3 Active calcium-vitamin D3 (CALTRATE 600+D) 600 mg-5 mcg (200 unit) Tablet Take by mouth. Activ e vitamin E 200 unit Capsule Take 200 Units by mouth daily. Active gabapentin (NEURONTIN) 100 mg capsule Take 1 Capsule (100 mg) by mouth daily at bedtime. 30 Capsule 2 10/18/2023 3:11 PM CDT 4 Active HYDROcodone-ramos taminophen (NORCO) 5-325 mg tablet Take 1 Tablet by mouth 3 times daily as needed FOR PAIN. (10/18/23) Max Daily Amount: 3 Tablets 90 Tablet 10/18/2023 3:11 PM CDT 4 Active HYDROcodone-ramos taminophen (NORCO) 5-325 mg tablet Take 1 tablet by mouth 3 (three) times a day as needed for pain. (08/19/23) 90 Tablet 08/20/2023 2:01 PM CDT 4 Active HYDROcodone-ramos taminophen (NORCO) 5-325 mg tablet Take 1 tablet by mouth 3 (three) times a day as needed for pain. (09/18/23) 90 Tablet 09/19/2023 10:39 AM CDT 4 Active pantoprazole (PROTONIX) 40 mg Tablet, Delayed Release (E.C.) Take 1 Tablet (40 mg) by mouth daily in the morning. 90 Tablet 1 01/19/2024 6:14 PM CDT 4 Active celecoxib (CeleBREX) 200 mg capsule Take 1 capsule (200 mg total) by mouth daily 30 Capsule 2 12/30/2023 2:34 PM CDT 4 Active HYDROcodone-ramos taminophen (NORCO) 5-325 mg tablet Take 1 tablet by mouth 3 (three) times a day as needed for pain 90 Tablet 01/19/2024 6:14 PM CDT 4 Active HYDROcodone-ramos taminophen (NORCO) 5-325 mg tablet Take 1 tablet by mouth 3 (three) times a day as needed for pain 90 Tablet 12/19/2023 12:54 PM CDT 4 Active HYDROcodone-ramos taminophen (NORCO) 5-325 mg tablet Take 1 tablet by mouth 3 (three) times a day as needed for pain 90 Tablet 11/17/2023 10:32 AM CDT 4 Active gabapentin (NEURONTIN) 300 mg capsule Take 1 Capsule (300 mg) by mouth daily at bedtime. 30 Capsule 2 07/12/2024 3:14 PM CDT 4 Active celecoxib (CeleBREX) 200 mg capsule Take 1 Capsule (200 mg) by mouth daily. 30 Capsule 2 04/16/2024 12:23 PM PINION AND WHEEL TRUER 4 Active gabapentin (NEURONTIN) 300 mg capsule Take 1 Capsule (300 mg) by mouth daily at bedtime. 30 Capsule 2 04/05/2024 3:50 PM PINION AND WHEEL TRUER 4 Active HYDROcodone-ramos taminophen (NORCO) 5-325 mg tablet Take 1 Tablet by mouth 3 times daily as needed for pain. (02/18/24) Max Daily Amount: 3 Tablets 90 Tablet 02/18/2024 10:42 AM PINION AND WHEEL TRUER 4 Active HYDROcodone-ramos taminophen (NORCO) 5-325 mg tablet Take 1 Tablet by mouth 3 times daily as needed for pain. 90 Tablet 03/19/2024 12:28 PM PINION AND WHEEL TRUER 4 Active HYDROcodone-ramos taminophen (NORCO) 5-325 mg tablet Take 1 Tablet by mouth 3 times daily as needed for pain. Max Daily Amount: 3 Tablets 90 Tablet 04/18/2024 3:36 PM PINION AND WHEEL TRUER 5 Active losartan-hydroC HLOROthiazide (HYZAAR) 50-12.5 mg tablet TAKE ONE TABLET BY MOUTH ONCE DAILY 90 Tablet 1 07/03/2024 2:49 PM CDT 5 Active azithromycin (ZITHROMAX) 250 mg tablet TAKE 2 TABLETS BY MOUTH A SINGLE DOSE ON DAY 1, THEN TAKE 1 TABLET BY MOUTH ONCE DAILY ON DAYS 2 THRU 5. 6 Tablet 04/09/2024 5:31 PM PINION AND WHEEL TRUER 5 Active pantoprazole (PROTONIX) 40 mg Tablet, Delayed Release (E.C.) Take 1 Tablet (40 mg) by mouth daily in the morning. 90 Tablet 1 07/20/2024 11:49 AM CDT 5 Active celecoxib (CeleBREX) 200 mg capsule Take 1 Capsule (200 mg) by mouth daily. 30 Capsule 3 07/12/2024 3:14 PM CDT 5 Active gabapentin (NEURONTIN) 300 mg capsule Take 1 Capsule (300 mg) by mouth daily at bedtime. 30 Capsule 3 06/09/2024 12:31 PM CDT 5 Active HYDROcodone-ramos taminophen (NORCO) 5-325 mg tablet Take 1 tablet by mouth 3 (three) times a day as needed for pain (07/17/24) 90 Tablet 07/20/2024 11:49 AM CDT 5 Active HYDROcodone-ramos taminophen (NORCO) 5-325 mg tablet Take 1 tablet by mouth 3 (three) times a day as needed for pain. 90 Tablet 06/18/2024 4:27 PM CDT 5 Active HYDROcodone-ramos taminophen (NORCO) 5-325 mg tablet Take 1 tablet by mouth 3 (three) times a day as needed for pain 90 Tablet 05/18/2024 3:58 PM PINION AND WHEEL TRUER 5 Active Active Problems No known active problems Encounters Date Type Department Care Team Description 06/13/2024 External Device Data STL ABSTRACTION Provider, Abstract 06/13/2024 Abstract [facility] Neurosurgery - Medical [place] [address] [facility] [address] [place] [address] Ace Wong MD 06/07/2024 Telephone [facility] Neurosurgery Medical [place] [address] [facility] [address] [place] [address] Ace Wong MD Wants Appointment 06/07/2024 Abstract [facility] Neurosurgery - Medical [place] [address] [facility] [address] [place] [address] Ace Wong MD 06/02/2024 External Device Data STL ABSTRACTION Provider, Abstract 06/01/2024 External Device Data STL ABSTRACTION Provider, Abstract 05/30/2024 External Device Data STL ABSTRACTION Provider, Abstract 05/30/2024 External Device Data STL ABSTRACTION Provider, Abstract 05/16/2024 External Device Data STL ABSTRACTION Provider, Abstract from Last 3 Months Immunizations Immunization Administration Dates Next Due (COMIRNATY)(12 YR UP) COVID- 19 VACCINE, MRNA, SPIKE PROTEIN, LNP, APOLONIA(PF) 30 MCG/0.3 ML IM SUSP 02/20/2024 (SHINGRIX)(50 YRS UP) ZOSTER VACCINE RECOMBINANT, 0.5 ML, IM 09/15/2022,04/09/2022 INFLUENZA VACCINE HIGH DOSE TRIVALENT SPLIT VIRUS, (65 YR UP), 0.5ML (PF), IM 12/19/2023 INFLUENZA VACCINE QUADRIVALENT 6 MOS UP PF IM ,02/05/2022 Social History Tobacco Use Types Packs/Day Years Used Date Smoking Tobacco: Former Tobacco Cessation:Counseling Given: Not Answered Comments:quit 24 years ago Alcohol Use Standard Drinks/Week Comments Yes 0 (1 standard drink = 0.6 oz pur e alcohol) rare Comments Unknown Sex and Gender Information Value Date Recorded Sex Assigned at Not on file Legal Sex Female 4:22 AM PINION AND WHEEL TRUER Gender Identity Not on file Sexual Orientation Not on file Last Filed Vital Signs Vital Sign Reading Time Taken Comments Blood Pressure 154/79 12/26/2023 10:23 AM CDT Pulse 88 12/26/2023 10:23 AM CDT Temperature 36.6 C (97.8 F) 12/26/2023 10:23 AM CDT Respiratory Rate 16 12/26/2023 10:23 AM CDT Oxygen Saturation 95% 12/26/2023 10:23 AM CDT Inhaled Oxygen Concentration - - Weight 65.8 kg (145 lb) 12/26/2023 10:23 AM CDT Height 157.5 cm (5' 2 ) 12/07/2013 10:02 AM CDT Body Mass Index - - Plan of Treatment Upcoming Encounters Date Type Department Care Team (Late st Contact Info) Description 08/24/2024 9:00 AM CDT Office Visit [facility] Oncology and Hematology - [place] [address] [place] [address] [address] [place] [address] Hugo Lyon MD [address] [facility] [address] [place] [address] 12/20/2024 11:00 AM CDT Office Visit [facility] Neurosurgery - Medical [place] [address] [address] Ace Wong MD [address] [facility] [address] [facility] [address]x0 (Work) Health Maintenance Due Date Last Done Comments DTAP/TDAP/TD VACCINES (1 - Tdap) 1977 BREAST CANCER SCREENING 1998 FIT-DNA Q 3 years 2003 FIT/FOBT Q 1 year 2003 Flex Sig/CT Colonography Q 5 years 2003 PNEUMOCOCCAL VACCINE 50+ YEA RS (1 of 1 - PCV) 2008 OSTEOPOROSIS SCREENING 2023 COVID-19 Vaccine (2 - season) 2024 COLORECTAL SCREENING 02/16/2028 02/15/2018 Colorectal Cancer Screening 02/16/2028 RSV VACCINE (60+ or ) (1 - 1-dose 75+ series) 2033 ZOSTER VACCINE Completed 09/15/2022, 04/09/2022 INFLUENZA VACCINE Completed 12/19/2023, , 02/05/2022 Medical Devices Implanted Type Area Paid Internship Device Identifier Shelf Expiration Date Model / Serial / Lot Vitoss Foam Ba 5ml - [id number] Implanted:Qt y: 1 on 12/19/2013 by Ace Wong MD at [facility] Biological N/A: Spine Cervical Posterior LEVI- SPINE 01/25/2015 / / [id number] Plate Rflxhbrd 1lvl 26mm [id number] - [id number] Implanted:Qt y: 1 on 12/19/2013 at [facility] Plate N/A: Spine Cervical Anterior LEVI- SPINE [id number] / / LOAD 43 Nov Description:LOAD 43, DEC 14, 2013 Juaquin Oasys Ti 3.5x40mm [id number] - [id number] Implanted:Qt y: 2 on 12/19/2013 at [facility] Juaquin N/A: Spine Cervical Posterior LEVI- SPINE [id number] / / Description:load 43, dec 14, [address] Fa 4.0x16mm [id number] - [id number] Implanted:Qt y: 2 on 12/19/2013 at [facility] Screw N/A: Spine Cervical Anterior LEVI- SPINE [id number] / / LOAD 43 Nov Description:LOAD 43, DEC 14, 2013 Screw Rh Sd Va 4.0x16mm [id number] - [id number] Implanted:Qt y: 2 on 12/19/2013 at [facility] Screw N/A: Spine Cervical Anterior LEVI- SPINE [id number] / / LOAD 43 Nov Description:LOAD 43DEC 14, 2013 Screw Oasys Canc Ba 3.5x12mm [id number] - [id number] Implanted:Qt y: 2 on 12/19/2013 at [facility] Screw N/A: Spine Cervical Posterior LEVI- SPINE [id number] / / Description:load 43dec 14, 2013 Screw Oasys Canc Ba 3.5x14mm [id number] - [id number] Implanted:Qt y: 4 on 12/19/2013 at [facility] Screw N/A: Spine Cervical Posterior LEVI- SPINE [id number] / / Description:load 43dec 14, 2013 Sealant Floseal W/ Adptr 10ml [id number] - [id number] Implanted:Qt y: 2 on 12/19/2013 by Ace Wong MD at [facility] Sealant N/A: Spine Cervical Anterior KAT- BIOSCIENCE 02/24/2015 [id number] / / [id number] [place] [id number] - [id number] Implanted:Qt y: 1 on 12/19/2013 at [facility] Spacer [employer] [id number] / / Description:LOAD DEC 19, 2013 Janie Oasys [id number] - [id number] Implanted:Qt y: 6 on 12/19/2013 at [facility] Spine N/A: Spine Cervical Posterior LEVI- SPINE [id number] / / Description:load dec 14, 2013 Insurance RX [employer] RX Member Subscriber Plan / Payer (Ef fective for All Dates) Name:Clara Canales Relation to Subscriber:Self Name:Clara Canales Payer ID:Not on file Group ID:[id number] Type:RX Medicare Part D Address: [address] RX [place] PLANS (INTERNAL) [facility] Internal Plans Advance Directives For more information, please contact: [phone] * Full Code (Latest Code Status on File) Date Activated Date Inactivated Comments 12/19/2013 3:23 PM 12/21/2013 8:40 PM * Full Code Date Activated Date Inactivated Comments 12/19/2013 5:53 AM 12/19/2013 3:23 PM Care Teams Boat Builder And Repairer Relationship Specialty Start Date End Date Nadege Mina MD [address] [facility] [address] [place] [address] PCP - General Family Practice 01/05/23
--- OUTSIDE RECORDS SUMMARY | 2024-07-31 11:01 | XMS_ITS | Clinical Summary ---
Author Organization [facility] Address [address] [place] [address] Care Team Providers Care Table Operator Name Role Phone Matt Hutton MD Primary Care Provider [phone] Social History Tobacco Use Types Packs/Day Years Used Date Smoking Tobacco: Never Assessed Comments Unknown Sex and Gender Information Value Date Recorded Sex Assigned at Not on file Legal Sex Female 9:14 AM CDT Gender Identity Not on file Sexual Orientation Not on file Plan of Treatment Health Maintenance Due Date Last Done Comments Colorectal Cancer Screening Colonoscopy (10 Years) 1958 Hepatitis C 1976 Mammogram Screening 1998 Pneumococcal Vaccine: 50+ Years (1 of 1 - PCV) 2008 Zoster Vaccines (1 of 2) 2008 Dexa Scan (General) 2023 COVID-19 Vaccine (4 - 2023-2 5 season) 2023 01/21/2021, 07/02/2020, 06/11/2020 DTaP, Tdap and Td Vaccines ( 3 - Td or Tdap) 12/20/2028 12/20/2018, 12/22/2009 RSV Immunization or 60+ Years (1 - 1-dose 75+ series) 2033 Meningococcal B Vaccine Aged Out No l onger eligible based on patient's age to complete this topic Meningococcal Vaccine Aged Out No erika jeff eligible based on patient's age to complete this topic RSV Immunizations Under 20 Months Aged Out No longer eligible b ased on patient's age to complete this topic Insurance [facility] Care Teams Table Operator Relationship Specialty Start Date End Date Matt Hutton MD [address] [place] [address] PCP - General FAMILY PRACTICE 06/23/21
--- OUTSIDE RECORDS SUMMARY | 2024-07-31 11:01 | XMS_ITS | Encounter Summary ---
Author Organization [facility] Address 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 Gender Identity Not on file Sexual Orientation Not on file documented as of this encounter Plan of Treatment Upcoming Encounters Date Type Department Care Team (Late st Contact Info) Description 08/24/2024 9:00 AM CDT Office Visit [facility] Oncology and Hematology - [place] [address] [facility] [address] [place] [address] Hugo Lyon MD [address] [facility] [address] [place] [address] 12/20/2024 11:00 AM CDT Office Visit [facility] Neurosurgery - [facility] [address] [place] [address] Ace Wong MD [address] [facility] [address] [address] -x0 (Work) documented as of this encounter Visit Diagnoses Diagnosis Cervical spondylosis without myelopathy- Primary documented in this encounter Care Teams Patient Relations Specialist Relationship Specialty Start Date End Date Nadege Mina MD [facility] [address] [address] PCP - General Family Practice 01/05/23 documented as of this encounter
--- OUTSIDE RECORDS SUMMARY | 2024-07-31 11:01 | XMS_ITS | Encounter Summary ---
Author Organization [facility] Address 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 Gender Identity Not on file Sexual Orientation Not on file documented as of this encounter Plan of Treatment Upcoming Encounters Date Type Department Care Team (Late st Contact Info) Description 08/24/2024 9:00 AM CDT Office Visit [facility] Oncology and Hematology - [place] [address] [facility] [address] [place] [address] Hugo Lyon MD [address] [facility] [address] [place] [address] 12/20/2024 11:00 AM CDT Office Visit [facility] Neurosurgery - Medical [place] [address] [facility] [address] [place] [address] Ace Wong MD [address] [place] [address] -x0 (Work) documented as of this encounter Visit Diagnoses Diagnosis Exotropia, unspecified- Primary documented in this encounter Care Teams Duct Cleaner Relationship Specialty Start Date End Date Nadege Mina MD [address] [place] [address] [address] PCP - General Family Practice 01/05/23 documented as of this encounter
[2024-07-31 15:20] LABS: Kit Draw Collected
== END 2024-07-31 10:10 | disposition home or self-care (01) ==
LOC: ANHGOSHLAB 10:10
PROVIDERS: PCP Family Medicine; Visit Provider Student in an Organized Health Care Education/Training Program
DX: R10.12 Left upper quadrant pain (principal); D50.9 Iron deficiency anemia, unspecified; E78.2 Mixed hyperlipidemia; G62.9 Polyneuropathy, unspecified; Z78.0 Asymptomatic menopausal state
CPT/HCPCS: 36415

== ENCOUNTER 2024-08-21 11:12 | Outpatient (CLI) | payer MEDICARE, SELFPAY ==
--- OUTSIDE RECORDS SUMMARY | 2024-08-21 11:15 | XMS_ITS | Encounter Summary ---
Author Organization [facility] Address 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 Gender Identity Not on file Sexual Orientation Not on file documented as of this encounter Plan of Treatment Upcoming Encounters Date Type Department Care Team (Late st Contact Info) Description 08/24/2024 9:00 AM CDT Office Visit [facility] Oncology and Hematology - [place] [address] [facility] 200 [place] [address] Hugo Lyon MD [address] [facility] [address] [place] [address] 12/20/2024 11:00 AM CDT Office Visit [facility] Neurosurgery - Medical [place] [address] [facility] [address] [place] [address] Ace Wong MD [address] [place] [address] -x0 (Work) documented as of this encounter Visit Diagnoses Diagnosis Hypertropia- Primary documented in this encounter Care Teams Oracle E Business Developer Relationship Specialty Start Date End Date aNdege Mina MD [facility] [address] [phone] PCP - General Family Practice 01/05/23 documented as of this encounter
--- OUTSIDE RECORDS SUMMARY | 2024-08-21 11:15 | XMS_ITS | Clinical Summary ---
Author Organization [facility] Address [address] [place] [address] Phone Care Team Providers Care Animal Care Taker Name Role Phone Nadege Mina MD Primary Care Provider Allergies Active Allergy Reactions Criticality Noted Date Comments Codeine Nausea and Vomiting Low 12/07/2013 Morphine Nausea and Vomiting Low 12/07/2013 Medications loratadine (CLARITIN) 10 mg tablet Take 10 mg by mouth daily. Active multivitamin (DAILY-ARIELA) tablet Take 1 Tab by mouth daily. Active naloxone (NARCAN) 4 mg/spray [place], Non-Aerosol Administer 1 [place] (4 mg) in nostril(s) as needed for opioid reversal. 2 Each 3 Active celecoxib (CeleBREX) 200 mg capsule Take 1 Capsule (200 mg) by mouth daily. 90 Capsule 1 03/08/2023 2:05 PM DIPPER OPERATOR 3 Active calcium-vitami n D3 (CALTRATE 600+D) 600 mg-5 mcg (200 unit) Tablet Take by mouth. Ac tive vitamin E 200 unit Capsule Take 200 Units by mouth daily. Active gabapentin (NEURONTIN) 100 mg capsule Take 1 Capsule (100 mg) by mouth daily at bedtime. 30 Capsule 2 10/18/2023 3:11 PM CDT 4 Active HYDROcodone-ac etaminophen (NORCO) 5-325 mg tablet Take 1 Tablet by mouth 3 times daily as needed FOR PAIN. (10/18/23) Max Daily Amount: 3 Tablets 90 Tablet 10/18/2023 3:11 PM CDT 4 Active HYDROcodone-ac etaminophen (NORCO) 5-325 mg tablet Take 1 tablet by mouth 3 (three) times a day as needed for pain. (08/19/23) 90 Tablet 08/20/2023 2:01 PM CDT 4 Active HYDROcodone-ac etaminophen (NORCO) 5-325 mg tablet Take 1 tablet [...] 2 12/30/2023 2:34 PM CDT 4 Active HYDROcodone-ac etaminophen (NORCO) 5-325 mg tablet Take 1 tablet by mouth 3 (three) times a day as needed for pain 90 Tablet 01/19/2024 6:14 PM CDT 4 Active HYDROcodone-ac etaminophen (NORCO) 5-325 mg tablet Take 1 tablet by mouth 3 (three) times a day as needed for pain 90 Tablet 12/19/2023 12:54 PM CDT 4 Active HYDROcodone-ac etaminophen (NORCO) 5-325 mg tablet Take 1 tablet [...] daily. 30 Capsule 2 04/16/2024 12:23 PM DIPPER OPERATOR 4 Active gabapentin (NEURONTIN) 300 mg capsule Take 1 Capsule (300 mg) by mouth daily at bedtime. 30 Capsule 2 04/05/2024 3:50 PM DIPPER OPERATOR 4 Active HYDROcodone-ac etaminophen (NORCO) 5-325 mg tablet Take 1 Tablet by mouth 3 times daily as needed for pain. (02/18/24) Max Daily Amount: 3 Tablets 90 Tablet 02/18/2024 10:42 AM DIPPER OPERATOR 4 Active HYDROcodone-ac etaminophen (NORCO) 5-325 mg tablet Take 1 Tablet by mouth 3 times daily as needed for pain. 90 Tablet 03/19/2024 12:28 PM DIPPER OPERATOR 4 Active HYDROcodone-ac etaminophen (NORCO) 5-325 mg tablet Take 1 Tablet by mouth 3 times daily as needed for pain. Max Daily Amount: 3 Tablets 90 Tablet 04/18/2024 3:36 PM DIPPER OPERATOR 5 Active losartan-hydro CHLOROthiazide (HYZAAR) 50-12.5 mg tablet TAKE ONE TABLET BY MOUTH ONCE DAILY 90 Tablet 1 07/03/2024 2:49 PM CDT 5 Active azithromycin (ZITHROMAX) 250 mg tablet TAKE 2 TABLETS BY MOUTH A SINGLE DOSE ON DAY 1, THEN TAKE 1 TABLET BY MOUTH ONCE DAILY ON DAYS 2 THRU 5. 6 Tablet 04/09/2024 5:31 PM DIPPER OPERATOR 5 Active pantoprazole (PROTONIX) 40 mg Tablet, [...] Take 1 Capsule (300 mg) by mouth nightly 30 Capsule 3 06/09/2024 12:31 PM CDT 5 Active HYDROcodone-ac etaminophen (NORCO) 5-325 mg tablet Take 1 tablet by mouth 3 (three) times a day as needed for pain. 90 Tablet 06/18/2024 4:27 PM CDT 5 Active HYDROcodone-ac etaminophen (NORCO) 5-325 mg tablet Take 1 tablet by mouth 3 (three) times a day as needed for pain 90 Tablet 05/18/2024 3:58 PM DIPPER OPERATOR 5 Active gabapentin (NEURONTIN) 300 mg capsule Take 1 Capsule (300 mg) by mouth daily at bedtime. 30 Capsule 3 5 Active HYDROcodone-ac etaminophen (NORCO) 5-325 mg tablet Take 1 tablet by mouth 3 (three) times a day as needed for pain (10/20/24) 90 Tablet 5 Active HYDROcodone-ac etaminophen (NORCO) 5-325 mg tablet Take 1 tablet by mouth 3 (three) times a day as needed for pain (09/20/24) 90 Tablet 5 Active HYDROcodone-ac etaminophen (NORCO) 5-325 mg tablet Take 1 tablet by mouth 3 (three) times a day as needed for pain 90 Tablet 5 Active HYDROcodone-ac etaminophen (NORCO) 5-325 mg tablet Take 1 tablet by mouth 3 (three) times a day as needed for pain (07/17/24) 90 Tablet 07/20/2024 11:49 AM CDT 5 08/22/19 25 Discontinu ed(Reorder ) Active Problems No known active problems Encounters Date Type Department Care Team Description 08/15/2024 External Device Data [place] [place] Provider, Abstract 08/14/2024 External Device Data [place] Provider, Abstract 06/13/2024 External Device Data [place] Provider, Abstract 06/13/2024 Abstract [facility] Neurosurgery - Medical [place] [address] [facility] [facility] [place] [address] Ace Wong MD 06/07/2024 Telephone [facility] Neurosurgery - Medical [place] [address] [facility] [address] [place] [address] Ace Wong MD Wants Appointment 06/07/2024 Abstract [facility] Neurosurgery - Medical [place] [address] [facility] [address] [place] [address] Ace Wong MD 06/02/2024 External Device Data [...] on file Legal Sex Female 4:22 AM DIPPER OPERATOR Gender Identity Not on file Sexual [...] 10:23 AM CDT Height 157.5 cm (5' 2) 12/07/2013 10:02 AM CDT Body Mass Index - - Plan of Treatment Upcoming Encounters Date Type Department Care Team (Late st Contact Info) Description 08/24/2024 9:00 AM CDT Office Visit [facility] Oncology and Hematology - [place] [address] [place] [address] Hugo Lyon MD [address] [facility] [address] [place] [address] 12/20/2024 11:00 AM CDT Office Visit [facility] Neurosurgery - [facility] [address] [facility] [address] [place] [address] Ace Wong MD [address] [facility] [address] [address] -x0 (Work) Health Maintenance Due Date Last Done Comments DTAP/TDAP/TD VACCINES (1 - Tdap) 1977 BREAST CANCER SCREENING 1998 FIT-DNA Q 3 years 2003 FIT/FOBT Q 1 year 2003 Flex Sig/CT Colonography Q 5 years 2003 PNEUMOCOCCAL VACCINE 50+ YEA RS (1 of 1 - PCV) 2008 OSTEOPOROSIS SCREENING 2023 [place]) Prev entative Visit/Annual Wellness Visit 03/28/2024 COVID-19 Vaccine (2 - season) 2024 COLORECTAL SCREENING 02/16/2028 02/15/2018 Colorectal Cancer Screening 02/16/2028 RSV VACCINE (60+ or ) (1 - 1-dose 75+ series) 2033 ZOSTER VACCINE Completed 09/15/2022, 04/09/2022 INFLUENZA VACCINE Completed 12/19/2023, , 02/05/2022 Medical Devices Implanted Type Area Monotypist Device Identifier Shelf Expiration Date Model / Serial / Lot Vitoss Foam Ba 5ml - [id number] Implanted:Qt y: 1 on 12/19/2013 by Ace Wong MD at [facility] Biological N/A: Spine Cervical Posterior LEVI- SPINE 01/25/2015 / / [id number] Plate Rflxhbrd 1lvl 26mm [id number] - [id number] Implanted:Qt y: 1 on 12/19/2013 at [facility] Plate N/A: Spine Cervical Anterior LEVI- SPINE [id number] / / LOAD 43 Nov Description:LOAD 43, DEC 14, 2013 Juaquin Oasys Ti 3.5x40mm [id number] - [id number] Implanted:Qt y: 2 on 12/19/2013 at [facility] Juaquin N/A: Spine Cervical Posterior LEVI- SPINE [id number] / / Description:load 43, dec 14, [address] Fa 4.0x16mm [id number] - [id number] Implanted:Qt y: 2 on 12/19/2013 at [facility] Screw N/A: Spine Cervical Anterior LEVI- SPINE [id number] / / LOAD 43 Nov Description:LOAD , DEC 14, 2013 Screw Rh Sd Va 4.0x16mm [id number] - [id number] Implanted:Qt y: 2 on 12/19/2013 at [facility] Screw N/A: Spine Cervical Anterior LEVI- SPINE [id number] / / LOAD 43 Nov Description:LOAD 43, DEC 14, 2013 Screw Oasys Canc Ba 3.5x12mm [id number] - [id number] Implanted:Qt y: 2 on 12/19/2013 at [facility] Screw N/A: Spine Cervical Posterior LEVI- SPINE [id number] / / Description:load 43, dec 14, 2013 Screw Oasys Canc Ba 3.5x14mm [id number] - [id number] Implanted:Qt y: 4 on 12/19/2013 at [facility] Screw N/A: Spine Cervical Posterior LEVI- SPINE [id number] / / Description:load 43, dec 14, 2013 Sealant Floseal W/ Adptr 10ml [id number] - [id number] Implanted:Qt y: 2 on 12/19/2013 by Ace Wong MD at [facility] Sealant N/A: Spine Cervical Anterior KAT- BIOSCIENCE 02/24/2015 [id number] / / [id number] [place] [id number] - [id number] Implanted:Qt y: 1 on 12/19/2013 at [facility] Spacer [employer] [id number] / / Description:LOAD 43, DEC 19, 2013 Janie Oasys [id number] - [id number] Implanted:Qt y: 6 on 12/19/2013 at [facility] Spine N/A: Spine Cervical Posterior LEVI- SPINE [id number] / / Description:load 43, dec 14, 2013 Insurance RX OPTUM RX Member Subscriber Plan / Payer (Ef fective for All Dates) Name:Clara Canlaes Relation to Subscriber:Self Name:Clara Canales Payer ID:Not on file Group ID:[id number] Type:RX Medicare Part D Address: [place], [place] RX [place] PLANS (INTERNAL) [facility] Internal Plans [address] [id number] Advance Directives For more information, please contact: [phone] * Full Code (Latest Code Status on File) Date Activated Date Inactivated Comments 12/19/2013 3:23 PM 12/21/2013 8:40 PM * Full Code Date Activated Date Inactivated Comments 12/19/2013 5:53 AM 12/19/2013 3:23 PM Care Teams Animal Care Taker Relationship Specialty Start Date End Date Nadege Mina MD [address] [facility] [address] [place] [address] PCP - General Family Practice 01/05/23
--- OUTSIDE RECORDS SUMMARY | 2024-08-21 11:15 | XMS_ITS | Encounter Summary ---
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 200 [place] [address] Hugo Lyon MD [address] [facility] [address] [place] [address] 12/20/2024 11:00 AM CDT Office Visit [facility] Neurosurgery - Medical [place] [address] [place] [address] Ace Wong MD [address] [facility] [address] [address] -x0 (Work) documented as of this encounter Visit Diagnoses Not on filedocumented in this encounter Care Teams Fish Trapper Relationship Specialty Start Date End Date Nadege Mina MD [address] [facility] [address] [place] [address] PCP - General Family Practice 01/05/23 documented as of this encounter
--- OUTSIDE RECORDS SUMMARY | 2024-08-21 11:15 | XMS_ITS | Encounter Summary ---
Author Organization [facility] Address 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 Gender Identity Not on file Sexual Orientation Not on file documented as of this encounter Plan of Treatment Upcoming Encounters Date Type Department Care Team (Late st Contact Info) Description 08/24/2024 9:00 AM CDT Office Visit [facility] Oncology and Hematology - [place] 2[address] [facility] 200 [place] [address] Hugo Lyon MD [address] [facility] [address] [place] [address] 12/20/2024 11:00 AM CDT Office Visit [facility] Neurosurgery - Medical [place] [address] [facility] [address] [place] [address] Ace Wong MD [address] [place] [place] [address] -x0 (Work) documented as of this encounter Visit Diagnoses Diagnosis Exotropia, unspecified- Primary documented in this encounter Care Teams Locomotive Lubricating Systems Clerk Relationship Specialty Start Date End Date Nadege Mina MD [address] [place] [address] [address] PCP - General Family Practice 01/05/23 documented as of this encounter
--- OUTSIDE RECORDS SUMMARY | 2024-08-21 11:15 | XMS_ITS | Clinical Summary ---
Author Organization [facility] Address [address] [address] Phone Care Team Providers Care Curb Machine Operator Name Role Phone Matt Hutton MD Primary Care Provider [phone] Allergies Active Allergy Reactions Criticality Noted Date [...] 9:00 AM CDT Height 156.2 cm (5' 1.5) 12/26/2017 9:00 AM CDT Body Mass Index [...] Maintenance Results * HM COLONOSCOPY (02/15/2018) us Aníbal Rudd DO PROCEDURE/MINOR SURGICAL ORDERA BLES Final Result from Last 3 Months or Most Recently Relevant to Health Maintenance Care Teams Curb Machine Operator Relationship Specialty Start Date End Date Matt Hutton MD [address] [place] [address] PCP - General Family Medicine 12/28/17
--- OUTSIDE RECORDS SUMMARY | 2024-08-21 11:15 | XMS_ITS | Encounter Summary ---
Author Organization [facility] Address 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 Gender Identity Not on file Sexual Orientation Not on file documented as of this encounter Plan of Treatment Upcoming Encounters Date Type Department Care Team (Late st Contact Info) Description 08/24/2024 9:00 AM CDT Office Visit [facility] Oncology and Hematology - [place] [address] [facility] [address] [place] [address] Hugo Lyon MD [address] [facility] [address] [place] [address] 12/20/2024 11:00 AM CDT Office Visit [facility] Neurosurgery - [facility] [address] [place] [address] Ace Wong MD [address] [facility] [address] [address] -x0 (Work) documented as of this encounter Visit Diagnoses Diagnosis Cervical spondylosis without myelopathy- Primary documented in this encounter Care Teams Electrical Engineering Intern Relationship Specialty Start Date End Date Nadege Mina MD [facility] [address] [address] PCP - General Family Practice 01/05/23 documented as of this encounter
--- OUTSIDE RECORDS SUMMARY | 2024-08-21 11:15 | XMS_ITS | Encounter Summary ---
Author Organization [facility] Address [address] [place] [address] Care Team Providers Care Software Systems Architect Name Role Phone Nadege Mina MD Primary [...] on file Legal Sex Female 4:22 AM E MERCHANT Gender Identity Not on file Sexual Orientation Not on file documented as of this encounter Plan of Treatment Upcoming Encounters Date Type Department Care Team (Late st Contact Info) Description 08/24/2024 9:00 AM CDT Office Visit [facility] Oncology and Hematology - [place] [facility] [facility] 200 [place] [address] Hugo Lyon MD [address] [facility] [address] [place] [address] 12/20/2024 11:00 AM CDT Office Visit [facility] Neurosurgery - [facility] [address] [place] [address] Ace Wong MD [address] [facility] [address] [address] -x0 (Work) documented as of this encounter Visit Diagnoses Diagnosis Cervical spondylosis without myelopathy- Primary documented in this encounter Care Teams Software Systems Architect Relationship Specialty Start Date End Date Nadege Mina MD [facility] [address] [address] PCP - General Family Practice 01/05/23 documented as of this encounter
[2024-08-21 11:23] LABS: Hematocrit 38.5 % (37.0-47.0); Hemoglobin 12.9 g/dL (12.0-15.0); Mean Corpuscular HGB Conc 33.5 g/dl (32-36); Mean Corpuscular Hemoglobin 31.2 pg (26-34); Mean Platelet Volume 9.2 fl (7.4-10.4); Platelet Count Result 310 k/mm3 (150-375); Red Blood Count 4.14 M/mm3 (4.2-5.4); Red Cell Distribution Width 12.7 % (11.5-14.5); White Blood Count 6.4 K/mm3 (4.5-10.0)
[2024-08-21 12:33] LABS: Iron 99 ug/dL (37-170)
[2024-08-21 12:36] LABS: Anion Gap 7 mmol/L (4-12); Blood Urea Nitrogen 14 mg/dL (7-17); Calcium 9.4 mg/dL (8.4-10.2); Carbon Dioxide 27 mmol/L (22-30); Chloride 105 mmol/L (98-107); Estimated Glomerular Filt Rate > 60; Glucose 121 mg/dL (65-110); Potassium 3.6 mmol/L (3.4-5.0); Sodium 139 mmol/L (137-145)
[2024-08-21 12:43] LABS: Percent Iron Saturation 38 % (20-50)
== END 2024-08-21 11:13 | disposition home or self-care (01) ==
PROVIDERS: PCP Family Medicine; Visit Provider Internal Medicine Hematology & Oncology
DX: D64.9 Anemia, unspecified (principal)
CPT/HCPCS: 36415; 80048; 82607; 82728; 83540; 83550; 85027